=== PATIENT | male | born 1970 | race Caucasian/White ===

== ENCOUNTER 2020-10-16 21:51 | Inpatient (IN) | payer OTHER ==
[~2020-10-16] VITALS: Ht 182.9 cm; Wt 84.8 kg
[2020-10-16 21:30] VITALS: BP 97/63
--- NOTE | 2020-10-16 21:30 | NUR ---
The patient, RAJINDER BOWSER, 50 y/o, M admitted by ABEL PAULSON MD, from [address] by ems. Pt. was given written information regarding hospital policies, unit procedures and contact persons. Valuables were checked and all questions answered. Pt alert to self currently. Very lethargic, but arouses to name. Updated given to mother, Raegan. Orders obtained from Dr. Paulson. Continue to monitor.
[~2020-10-16 21:51] MED LIST: AMIODARONE 150 MG/3 ML VIAL ONE; DOPamine 400MG/250ML PREMIX 400 MG/250 ML BAG IV ONE; EPINEPHrine SYRINGE 1 MG/10 ML SYRINGE ONE; SODIUM BICARB ADULT 8.4% 50 MEQ/50 ML DISP.SYRIN. ONE
[2020-10-16] MEDS ORDERED: ALBUTEROL SULFATE 2.5 MG/3 ML NEBU. NEB PRN (22:15)
[2020-10-16] MEDS ORDERED: LIDOCAINE 2% TOPICAL JELLY 30GM TUBE. TP PRN (22:15)
[2020-10-16] MEDS ORDERED: ONDANSETRON PF 4 MG/2 ML VIAL. IVP PRN (22:15)
[2020-10-16] MEDS ORDERED: CAPSAICIN 0.025% TOPICAL CREAM 60GM TUBE. TP PRN (22:15)
[2020-10-16 23:00] VITALS: BP 118/68
[2020-10-16] MEDS ORDERED: POTASSIUM CL 40MEQ IN 0.9%NACL 1,000 ML IV SCH (23:00)
[2020-10-17] MEDS ORDERED: TIOT18CA IH (00:30)
[2020-10-17] MEDS ORDERED: CYAN100031 PO (00:30)
[2020-10-17] MEDS ORDERED: LIDO5CRE9 TP (00:30)
[2020-10-17] MEDS ORDERED: THIA100T57 PO (00:30)
[2020-10-17] MEDS ORDERED: DULO60CA6 PO (00:30)
[2020-10-17] MEDS ORDERED: LOSA25TA PO (00:30)
[2020-10-17] MEDS ORDERED: GABA600T7 PO (00:30)
[2020-10-17] MEDS ORDERED: METF500T16 PO (00:30)
[2020-10-17] MEDS ORDERED: ASPI-630 PO (00:30)
[2020-10-17] MEDS ORDERED: POTA-163 PO (00:30)
[2020-10-17] MEDS ORDERED: CAPS60CR2 TP (00:30)
[2020-10-17] MEDS ORDERED: CRESTOR5 MG PO (00:30)
[2020-10-17] MEDS ORDERED: BUDE10.2 IH (00:30)
[2020-10-17] MEDS ORDERED: TAMS0.4C97 PO (00:30)
[2020-10-17] MEDS ORDERED: SILD50TA PO (00:30)
[2020-10-17] MEDS ORDERED: FOLI0.8T5 PO (00:30)
[2020-10-17] MEDS ORDERED: ALBU2.5V8 IH (00:30)
[2020-10-17 03:00] VITALS: BP 96/61
[2020-10-17 07:00] VITALS: BP 97/60
[2020-10-17] MEDS: BUDESONIDE 0.5 MG/2 ML NEBU. NEB SCH ×2 (07:30→20:00)
[2020-10-17] MEDS: IPRATRPIUM/ALBUTEROL 0.5/2.5MG 3 ML NEBU. NEB SCH ×4 (07:30→20:00)
[2020-10-17] MEDS: PANTOPRAZOLE IV PUSH 40 MG VIAL. IVP SCH (07:51)
[2020-10-17 08:25] LABS: BASO % 0 % (0-3); EOS % 0 % (0-3); HEMOGLOBIN 7.7 g/dL (13.0-17.5); LYMPH # 1.5 x10^3/uL (1.0-4.8); LYMPH % 20 % (24-48); MEAN CORPUSCULAR HEMOGLOBIN 35 pg (25-35); MEAN CORPUSCULAR HGB CONC 34 g/dL (31-37); MEAN CORPUSCULAR VOLUME 106 fL (79-100); MONO # 0.3 x10^3/uL (0.0-1.1); MONO % 4 % (0-9); NEUT # 5.6 x10^3/uL (1.8-7.7); NEUT % 75 % (31-73); PLATELET COUNT 133 x10^3/uL (140-400); RED BLOOD COUNT 2.18 x10^6/uL (4.30-5.70); WHITE BLOOD COUNT 7.4 x10^3/uL (4.0-11.0)
[2020-10-17] MEDS ORDERED: DULoxetine HCL 30 MG CAPSULE.DR PO SCH (09:00)
[2020-10-17 09:08] LABS: ALBUMIN 2.3 g/dL (3.4-5.0); ALBUMIN/GLOBULIN RATIO 0.7 (1.0-1.7); CALCIUM 8.6 mg/dL (8.5-10.1); GFR 78.8; POTASSIUM 5.5 mmol/L (3.5-5.1); TOTAL BILIRUBIN 0.7 mg/dL (0.2-1.0); TOTAL PROTEIN 5.8 g/dL (6.4-8.2)
[2020-10-17] MEDS ORDERED: INSULIN LISPRO 300 UNITS/3 ML VIAL. SQ PRN (09:45)
[2020-10-17] MEDS ORDERED: DEXTROSE 50% 25 GM / 50ML DISP.SYRIN. IV PRN (09:45)
--- NOTE | 2020-10-17 09:53 | PDOC2 ---
CONSULT Date of Consult Date of Consult DATE: 10/17/20 TIME: 09:51 Reason for Consult Reason for Consult: N/V/transaminitis Current Medications Current Medications Current Medications Albuterol Sulfate (Ventolin Neb Soln) 2.5 mg PRN Q4HRS PRN NEB SHORTNESS OF BREATH; Start 10/16/20 at 22:15 Budesonide (Pulmicort) 0.5 mg RTBID NEB Last administered on 10/17/20at 07:30; Start 10/17/20 at 08:00 Capsaicin (Zostrix) 1 lea PRN QID PRN TP MODERATE PAIN 4-6; Start 10/16/20 at 22:15 Duloxetine HCl (Cymbalta) 90 mg DAILY PO ; Start 10/17/20 at 09:00; Stop 10/17/20 at 09:45; Status DC Albuterol/ Ipratropium (Duoneb) 3 ml RTQID NEB Last administered on 10/17/20at 07:30; Start 10/17/20 at 08:00 Lidocaine HCl (Xylocaine 2% Topical 30gm Tube) 1 lea PRN QID PRN TP MUSCLE P AIN; Start 10/16/20 at 22:15 Ondansetron HCl (Zofran) 4 mg PRN Q6HRS PRN IVP NAUSEA/VOMITING 1ST CHOICE; Start 10/16/20 at 22:15 Pantoprazole Sodium (PROTONIX VIAL for IV PUSH) 40 mg DAILYAC IVP Last administered on 10/17/20at 07:51; Start 10/17/20 at 07:30 Potassium Chloride/Sodium Chloride 1,000 ml @ 125 mls/hr Q8H IV Last administered on 10/17/20at 00:43; Start 10/16/20 at 23:00; Stop 10/17/20 at 09:43; Status DC Dextrose 1,000 ml @ 100 mls/hr Q10H IV ; Start 10/17/20 at 09:45 Insulin Human Lispro (HumaLOG) 0-5 UNITS Q6H PRN SQ hyperglycemia; Start 10/17/20 at 09:45; Status UNV Dextrose (Dextrose 50%-Water Syringe) 12.5 gm PRN Q15MIN PRN IV SEE COMMENTS; Start 10/17/20 at 09:45; Status UNV Active Scripts Active Reported Vitamin B-1 (Thiamine Hcl) 100 Mg Tablet 200 Mg PO DAILY Folic Acid 0.8 Mg Tablet 20 Mg PO DAILY B-12 (Cyanocobalamin (Vitamin B-12)) 1,000 Mcg Tablet.er 1 Tab PO DAILY 30 Days Capsaicin 60 Gm Cream..g. 60 Gm TP PRN QID PRN Metformin Hcl 500 Mg Tablet 500 Mg PO BIDWMEALS Anecream (Lidocaine) 5 Gm Cream..g. 1 Lea TP PRN QID PRN 30 Days Symbicort 160-4.5 Mcg Inhaler (Budesonide/Formoterol Fumarate) 10.2 Gm Hfa.aer.ad 2 Puff IH BID Potassium Chloride 20 Meq Tablet.er 20 Meq PO DAILY Cymbalta (Duloxetine Hcl) 60 Mg Capsule.dr 90 Mg PO DAILY Gabapentin 600 Mg Tablet 600 Mg PO TID Aspirin 81 Mg Tab.chew 1 Tab PO DAILY Cozaar (Losartan Potassium) 25 Mg Tablet 25 Mg PO DAILY Viagra (Sildenafil Citrate) 50 Mg Tablet 50 Mg PO ONCE PRN Crestor (Rosuvastatin Calcium) 5 Mg Tablet 2.5 Mg PO HS Flomax (Tamsulosin Hcl) 0.4 Mg Cap.er.24h 1 Cap PO DAILY Proair Hfa (Albuterol Sulfate) 8.5 Gm Hfa.aer.ad 2 Puff IH PRN Q4-6HRS PRN 21 Days Spiriva (Tiotropium Gilbert) 18 Mcg Cap.w.dev 1 Cap IH DAILY Allergies Allergies: Coded Allergies: lisinopril (Verified Allergy, Severe, 10/16/20) amitriptyline (Verified Allergy, Intermediate, 10/16/20) divalproex sodium (Verified Allergy, Intermediate, 10/16/20) topiramate (Verified Allergy, Intermediate, 10/16/20) Vitals VITALS Vital Signs Date Time Temp Pulse Resp B/P (MAP) Pulse Ox O2 Delivery O2 Flow Rate FiO2 10/17/20 08:00 Room Air 2.0 10/17/20 07:30 94 10/17/20 07:00 98.0 106 18 97/60 (72) 98.0 Labs Labs Laboratory Tests Test 10/17/20 08:00 White Blood Count 7.4 x10^3/uL (4.0-11.0) Red Blood Count 2.18 x10^6/uL (4.30-5.70) Hemoglobin 7.7 g/dL (13.0-17.5) Hematocrit 23.0 % (39.0-53.0) Mean Corpuscular Volume 106 fL (79-100) Mean Corpuscular Hemoglobin 35 pg (25-35) Mean Corpuscular Hemoglobin Concent 34 g/dL (31-37) Red Cell Distribution Width 21.0 % (11.5-14.5) Platelet Count 133 x10^3/uL (140-400) Neutrophils (%) (Auto) 75 % (31-73) Lymphocytes (%) (Auto) 20 % (24-48) Monocytes (%) (Auto) 4 % (0-9) Eosinophils (%) (Auto) 0 % (0-3) Basophils (%) (Auto) 0 % (0-3) Neutrophils # (Auto) 5.6 x10^3/uL (1.8-7.7) Lymphocytes # (Auto) 1.5 x10^3/uL (1.0-4.8) Monocytes # (Auto) 0.3 x10^3/uL (0.0-1.1) Eosinophils # (Auto) 0.0 x10^3/uL (0.0-0.7) Basophils # (Auto) 0.0 x10^3/uL (0.0-0.2) Sodium Level 147 mmol/L (136-145) Potassium Level 5.5 mmol/L (3.5-5.1) Chloride Level 110 mmol/L (98-107) Carbon Dioxide Level 27 mmol/L (21-32) Anion Gap 10 (6-14) Blood Urea Nitrogen 40 mg/dL (8-26) Creatinine 1.0 mg/dL (0.7-1.3) Estimated GFR (Cockcroft-Gault) 78.8 BUN/Creatinine Ratio 40 (6-20) Glucose Level 136 mg/dL (70-99) Calcium Level 8.6 mg/dL (8.5-10.1) Total Bilirubin 0.7 mg/dL (0.2-1.0) Aspartate Amino Transf (AST/SGOT) 80 U/L (15-37) Alanine Aminotransferase (ALT/SGPT) 85 U/L (16-63) Alkaline Phosphatase 170 U/L (46-116) Total Protein 5.8 g/dL (6.4-8.2) Albumin 2.3 g/dL (3.4-5.0) Albumin/Globulin Ratio 0.7 (1.0-1.7) Laboratory Tests Test 10/17/20 08:00 White Blood Count 7.4 x10^3/uL (4.0-11.0) Red Blood Count 2.18 x10^6/uL (4.30-5.70) Hemoglobin 7.7 g/dL (13.0-17.5) Hematocrit 23.0 % (39.0-53.0) Mean Corpuscular Volume 106 fL (79-100) Mean Corpuscular Hemoglobin 35 pg (25-35) Mean Corpuscular Hemoglobin Concent 34 g/dL (31-37) Red Cell Distribution Width 21.0 % (11.5-14.5) Platelet Count 133 x10^3/uL (140-400) Neutrophils (%) (Auto) 75 % (31-73) Lymphocytes (%) (Auto) 20 % (24-48) Monocytes (%) (Auto) 4 % (0-9) Eosinophils (%) (Auto) 0 % (0-3) Basophils (%) (Auto) 0 % (0-3) Neutrophils # (Auto) 5.6 x10^3/uL (1.8-7.7) Lymphocytes # (Auto) 1.5 x10^3/uL (1.0-4.8) Monocytes # (Auto) 0.3 x10^3/uL (0.0-1.1) Eosinophils # (Auto) 0.0 x10^3/uL (0.0-0.7) Basophils # (Auto) 0.0 x10^3/uL (0.0-0.2) Sodium Level 147 mmol/L (136-145) Potassium Level 5.5 mmol/L (3.5-5.1) Chloride Level 110 mmol/L (98-107) Carbon Dioxide Level 27 mmol/L (21-32) Anion Gap 10 (6-14) Blood Urea Nitrogen 40 mg/dL (8-26) Creatinine 1.0 mg/dL (0.7-1.3) Estimated GFR (Cockcroft-Gault) 78.8 BUN/Creatinine Ratio 40 (6-20) Glucose Level 136 mg/dL (70-99) Calcium Level 8.6 mg/dL (8.5-10.1) Total Bilirubin 0.7 mg/dL (0.2-1.0) Aspartate Amino Transf (AST/SGOT) 80 U/L (15-37) Alanine Aminotransferase (ALT/SGPT) 85 U/L (16-63) Alkaline Phosphatase 170 U/L (46-116) Total Protein 5.8 g/dL (6.4-8.2) Albumin 2.3 g/dL (3.4-5.0) Albumin/Globulin Ratio 0.7 (1.0-1.7) Assessment/Plan Assessment/Plan N/V- with Crohns/coffee ground emesis, Differential includes: PUD, varices with liver disease/portal hypertensions, GB disease, and/or alcoholic hepatitis Plan medical therapy with hydration/fluids/alcohol withdrawal precautions serial labs US liver to further assess Full note dictated. DELFINA WADE MD Oct 17, 2020 09:53
[2020-10-17] MEDS: IV DEXTROSE 5% 1,000 ML IV SCH ×2 (10:02→19:55)
--- NOTE | 2020-10-17 10:06 | HP ---
ADMIT DATE: 10/16/2020 HISTORY OF PRESENT ILLNESS: The patient is a 50-year-old male patient who was admitted through the Emergency Room of [facility] with basically altered mental status. He was diagnosed with acute kidney injury, lactic acidosis together with functional paraplegia due to severe diabetic peripheral neuropathy as he is on duloxetine, gabapentin as well as capsaicin. He initially did well. In fact, his numbers have improved. His kidney function came down from a creatinine of 1.4, down to 0.9 and his BUN also has improved from 49 to 36; however, his H and H has dropped to 6.9 yesterday and he did receive 1 unit of packed RBCs and yesterday around noon, he started complaining of abdominal pain and also vomited multiple times what seemed to be coffee-ground material, so we did start him on IV Protonix, IV fluid and kept him n.p.o. We did repeat his labs yesterday evening and his H and H continued to be stable around 9.1 and 27.3 and his chemistry remained stable. His liver enzymes continued to be slightly elevated; however, his ammonia is normal. His lactate dehydrogenase was only 149. His lipase was 323. I did a CT scan of the abdomen and pelvis without contrast and it did show that the patient has dilated fluid filled ascending colon with adjacent fat stranding, which is nonspecific, may relate to colitis. He also has gallbladder distended with small amount of adjacent stranding, correlate with symptomatology to determine the need for further evaluation with ultrasound. The patient therefore was continued to be in n.p.o. status. Continued on IV fluid and continued on Protonix drip and transferred to [facility] to consult the Cardiology team. PAST MEDICAL HISTORY: Significant for Crohn's disease, type 2 diabetes mellitus, hypertension, hyperlipidemia, chronic obstructive pulmonary disease, benign prostatic hypertrophy, and chronic alcoholism. PAST SURGICAL HISTORY: Significant for multiple EGDs and colonoscopies. ALLERGIES: HE IS ALLERGIC TO AMITRIPTYLINE, DIVALPROEX SODIUM, LISINOPRIL, AND TOPIRAMATE. HOME MEDICATIONS: Consist of tiotropium bromide 1 capsule daily, albuterol sulfate 2 puffs every 4-6 hours, tamsulosin 0.4 mg at bedtime, Crestor 2.5 mg weekly, sildenafil for Viagra 50 mg as needed. He is also on losartan potassium 25 mg once a day, aspirin 81 mg once a day, gabapentin 400 mg 3 times a day, duloxetine 90 mg daily. He is on potassium chloride 20 mEq daily. He is on Symbicort 160/4.5 two puffs twice a day, Lidoderm gel applied topically 4 times a day for nerve pain. He is also on metformin 500 mg twice a day, capsaicin 60 grams cream applied topically 4 times a day, vitamin B12 1000 mcg once a day, folic acid 1 mg once a day and thiamine 100 mg once a day. FAMILY HISTORY: He has 3 sisters, 1 brother, older and healthy. His father at the age of 74 as a complication of surgery for his carotid arteries according to him. His mother is still alive at the age of 89 and apparently healthy. Currently lives in [place], [place]. SOCIAL HISTORY: He has twice, twice. He used to live with his girlfriend who recently. He has no children. He quit smoking years ago. He drinks wine 3 times per week according to him. He does not drink any whiskey or vodka. He was in [employer] in 1990. He was discharged because he was diagnosed with Crohn's disease. REVIEW OF SYSTEMS: The patient continued to complain of diffuse abdominal pain, but denied any further episodes of nausea and vomiting when I saw him this morning. PHYSICAL EXAMINATION: GENERAL: When I examined him this morning, he looked pale, not jaundiced or cyanosed. No lymphadenopathy, no thyromegaly. No jugular venous distention. No lower limb edema. VITAL SIGNS: His heart rate was 106, blood pressure was 97/60, temperature was 98, respiratory rate was 18 and oxygen saturation was 94% on 2 liters of oxygen. HEAD, EYES, EARS, NOSE AND THROAT: Showed normocephalic, atraumatic. NECK: Supple. HEART: Normal first and second heart sounds. No gallop or murmur. CHEST: Clear to auscultation. No crepitation or rhonchi. ABDOMEN: Distended with diffuse tenderness. No guarding or rigidity. No organomegaly. All hernial orifice intact. Bowel sounds normal. NEUROLOGIC: He is awake, alert, but confused. All his cranial nerves are intact. EXTREMITIES: He moves upper extremities to much good extent than lower extremities, mostly bedbound, wheelchair bound. LABORATORY DATA: His lab work this morning showed his white cell count was 7400, hemoglobin 7.7, hematocrit 23, MCV 106 and platelet count of 133,000 with normal manual differential. His chemistry showed a serum sodium 147, potassium 5.5, chloride 110, bicarbonate 27, anion gap of 10, BUN 40, creatinine 1, estimated GFR was 79 mL per minute. His glucose 136, calcium was 8.6. Total bilirubin 0.7. AST, ALT, alkaline phosphatase are all elevated. His total protein was 5.8, albumin was 2.3. ASSESSMENT AND PLAN: 1. In summary, this is a 50-year-old male patient who was transferred from [facility], where he was admitted initially with altered mental status that has somewhat improved. 2. Acute kidney injury with dehydration, hypokalemia and hyponatremia, improved. His creatinine came down from 1.4 to 0.9. 3. He continued to have elevated liver enzymes, likely due to chronic alcoholic liver disease. 4. The patient has multiple other medical problems including: A. Crohn's disease. B. Type 2 diabetes mellitus. C. Hypertension. D. Hyperlipidemia. E. Chronic obstructive pulmonary disease. F. Benign prostatic hypertrophy. 5. The patient dropped his H and H and has multiple episodes of nausea, vomiting and also complained of abdominal pain. The emesis was coffee-ground. The patient did receive 1 unit of packed RBCs yesterday and at least as of yesterday afternoon or evening, his H and H was 9.1 and 27. Unfortunately, his H and H has dropped again this morning. His CT scan of the abdomen and pelvis showed that the patient has dilated fluid-filled ascending colon with adjacent fat stranding, which is nonspecific and may relate to colitis. He also has gallbladder distended with small amount of adjacent stranding, correlate with symptomatology to determine the need for further evaluation with ultrasound. My plan is to keep him n.p.o., continue with IV fluid, although I have to adjust the fluid, continue with Protonix IV. I will hold all his oral medication. I have consulted the laborer airport [employer] given that he has multiple episodes of coffee-ground emesis and dropped his H and H down to 6.9 and this morning again to 7.7. He has also dilated gallbladder as well as dilated ascending colon and has a history of Crohn's disease. ABEL PAULSON MD DR: ZULMA/kwaku JOB#: [id number] / [id number]
--- NOTE | 2020-10-17 10:23 | CONS ---
DATE OF CONSULTATION: 10/17/2020 REASON FOR CONSULTATION: Right upper quadrant abdominal pain, anemia, nausea and vomiting. HISTORY OF PRESENT ILLNESS: A 50-year-old male whose past medical history is significant for Crohn's, diabetes, hypertension, hyperlipidemia, COPD, BPH, chronic alcoholism, is admitted to [facility] from [facility] with worsening mental status changes as well as the anemia. The patient otherwise gives minimal additional history due to being confused with his ammonia level has been less than 10. PAST MEDICAL HISTORY: COPD, asthma, hyperlipidemia, diabetes, alcoholism. ALLERGIES: AMITRIPTYLINE, LISINOPRIL AND TOPIRAMATE. MEDICATIONS: On admission included Crestor, Viagra, losartan, gabapentin, potassium chloride, Symbicort, metformin, vitamin D, folic acid, thiamine. FAMILY AND SOCIAL HISTORY: He has 4 siblings, who are alive and healthy. Father is from heart surgery. Mother is 89, is alive and well. SOCIAL HISTORY: He is a smoker and drinker. REVIEW OF SYSTEMS: Per records. PHYSICAL EXAMINATION: GENERAL: Reveals a disabled male, who is alert, but disoriented to time and place. VITAL SIGNS: Temp 97.3, pulse 79, respiratory rate is 16, blood pressure is 92/65. LUNGS: Reveal decreased breath sounds. CARDIOVASCULAR: S1, S2 without S3, S4 or appreciable murmur. ABDOMEN: Reveals a soft abdomen, normoactive bowel sounds without appreciable hepatosplenomegaly with right upper quadrant tenderness to deep palpation. EXTREMITIES: Reveals no cyanosis, clubbing or edema. LABORATORY STUDIES: Reveal hemoglobin today is 7.7; hematocrit 23; white count 7.4; platelet count is 133,000. Sodium 147, potassium 5.4, chloride 110, BUN is 40, creatinine 1.0, glucose 136. Total bili 0.7, AST of 80, ALT of 85, alk phos of 170. Total protein 5.8, albumin 2.3. An ultrasound of the liver is presently pending to further assess his abnormal CT scan, which revealed dilated loops of colon as well as possible gallbladder enlargement. IMPRESSION: The abdominal pain, nausea, vomiting, anemia most likely are multifactorial in etiology. Stress peptic ulcer disease, alcoholic hepatitis, varices, acute cholecystitis in differential. I will, therefore, recommend medical therapy, serial blood counts, PPI therapy, ultrasound to assess for acute cholecystitis and supportive therapy for possible alcohol withdrawal and alcoholic hepatitis therapy. DELFINA WADE MD DR: TAM/kwaku JOB#: [id number] / [id number]
[2020-10-17 10:45] LABS: MICROCYTOSIS PRESENT; PLT ESTIMATE ADEQUATE (ADEQUATE)
[2020-10-17 11:00] VITALS: BP 98/61
[2020-10-17] MEDS ORDERED: EPIDURAL SYRINGE. EPID ONE (12:00)
--- NOTE | 2020-10-17 13:53 | RAD ---
EXAM: Abdomen sonogram. HISTORY: Right upper quadrant pain. TECHNIQUE: Sonographic imaging of the abdomen was performed. COMPARISON: CT obtained one day prior. FINDINGS: The liver is enlarged. There is hepatic steatosis. No focal hepatic lesion is seen. There i s gauze or sludge. The common bile duct is mildly dilated for patient age, measuring 6 mm. The right kidney, inferior vena cava, aorta and pancreas are obscured due to bowel gas. IMPRESSION: 1. Hepatomegaly and hepatic steatosis. 2. Gallbladder sludge. 3. Mildly dilated common bile duct for patient age. MRCP may be useful if this concern for an occult obstructing etiology. 4. Obscured midline structures due to bowel gas. Electronically signed by: Zoey Kessler MD (10/17/2020 1:51 PM) [facility]
[2020-10-17 15:00] VITALS: BP 105/63
[2020-10-17 16:33] LABS: HEMATOCRIT 22.1 % (39.0-53.0); HEMOGLOBIN 7.3 g/dL (13.0-17.5)
[2020-10-17 16:39] LABS: CALCIUM 8.5 mg/dL (8.5-10.1); CREATININE 1.1 mg/dL (0.7-1.3); GFR 70.6; POTASSIUM 4.5 mmol/L (3.5-5.1)
[2020-10-17 19:00] VITALS: BP 107/69
[2020-10-17 23:00] VITALS: BP 105/62
[2020-10-18] VITALS (21 sets, daily range): BP systolic 81–197; BP diastolic 48–75
[2020-10-18] MEDS: ACETAMINOPHEN 650 MG SUPP.RECT. PR PRN ×2 (02:00→10:00)
[2020-10-18] MEDS: PIPERACILLIN/TAZOBACTAM 3.375 GM in IV NORMAL SALINE 50ML 50 ML IV SCH ×4 (02:00→21:03)
[2020-10-18 02:51] LABS: BASO % 0 % (0-3); EOS # 0.1 x10^3/uL (0.0-0.7); EOS % 2 % (0-3); HEMATOCRIT 21.2 % (39.0-53.0); HEMOGLOBIN 7.1 g/dL (13.0-17.5); LYMPH # 0.7 x10^3/uL (1.0-4.8); LYMPH % 13 % (24-48); MEAN CORPUSCULAR HEMOGLOBIN 36 pg (25-35); MEAN CORPUSCULAR HGB CONC 33 g/dL (31-37); MEAN CORPUSCULAR VOLUME 107 fL (79-100); MONO # 0.3 x10^3/uL (0.0-1.1); MONO % 6 % (0-9); NEUT # 4.1 x10^3/uL (1.8-7.7); NEUT % 79 % (31-73); PLATELET COUNT 149 x10^3/uL (140-400); RED BLOOD COUNT 1.99 x10^6/uL (4.30-5.70); RED CELL DISTRIBUTION WIDTH 20.6 % (11.5-14.5); WHITE BLOOD COUNT 5.2 x10^3/uL (4.0-11.0)
[2020-10-18 03:18] LABS: ALBUMIN 2.2 g/dL (3.4-5.0); ALBUMIN/GLOBULIN RATIO 0.6 (1.0-1.7); CALCIUM 8.4 mg/dL (8.5-10.1); CREATININE 1.1 mg/dL (0.7-1.3); GFR 70.6; POTASSIUM 4.1 mmol/L (3.5-5.1); TOTAL BILIRUBIN 0.6 mg/dL (0.2-1.0); TOTAL PROTEIN 5.7 g/dL (6.4-8.2)
[2020-10-18 04:32] LABS: BILIRUBIN,URINE MODERATE (NEG); CLARITY,URINE CLEAR; COLOR,URINE ORANGE; NITRITE,URINE NEGATIVE (NEG); PROTEIN,URINE NEGATIVE (NEG-TRACE)
[2020-10-18 04:58] LABS: BACTERIA,URINE FEW /HPF (0-FEW)
[2020-10-18] MEDS: IV DEXTROSE 5% 1,000 ML IV SCH ×2 (05:08→18:57)
[2020-10-18] MEDS: PANTOPRAZOLE IV PUSH 40 MG VIAL. IVP SCH (05:10)
[2020-10-18] MEDS: BUDESONIDE 0.5 MG/2 ML NEBU. NEB SCH ×2 (06:05→20:00)
[2020-10-18] MEDS: IPRATRPIUM/ALBUTEROL 0.5/2.5MG 3 ML NEBU. NEB SCH ×4 (06:05→20:00)
--- NOTE | 2020-10-18 09:11 | RAD ---
XR CHEST 1V INDICATION: Reason: fever / Spl. Instructions: / History: . COMPARISON STUDY: None. FINDINGS: Lungs: Low lung volume. Right basilar consolidation. Left basilar heterogeneous opacities. Pleura: No pleural effusion or pneumothorax. Heart and Mediastinum: The cardiomediastinal silhouette is normal. The great vessels of the thorax ar e normal. IMPRESSION: Right basilar consolidation concerning for an infectious/inflammatory process. Mild left basilar opac ities could represent subsegmental atelectasis or additional infection. Electronically signed by: Nik Emery MD (10/18/2020 9:08 AM) [id number]
--- NOTE | 2020-10-18 12:10 | PN ---
DATE: 10/18/2020 SUBJECTIVE: The patient is resting, slightly propped up in bed, in no apparent distress. He is sleepy, but arousable. He continued to be very confused. Nursing staff stated he did spike his temperature yesterday up to 101 and we did actually culture his blood and urine. Did chest x-ray, which showed that the patient has right basilar consolidation concerning for an infectious inflammatory process, mild left basilar opacities, could represent subsegmental atelectasis or additional infection for which we did start him on IV Zosyn at 3.375 grams IV every 6 hours. He did have abdominal ultrasound, which showed that he has hepatomegaly and hepatic steatosis, gallbladder sludge, and mildly dilated common bile duct for the patient's age. MRCP may be useful if there is concern for an occult obstructing etiology. He has obscured midline structure due to a bowel gas. PHYSICAL EXAMINATION: GENERAL: When I saw him this morning, he was pale, but no jaundice or cyanosis. No lymphadenopathy, no thyromegaly. No jugular venous distention. No lower limb edema. VITAL SIGNS: His heart rate was 109, blood pressure was 98/57. His temperature was 101, respiratory rate 20, and oxygen saturation was 92% on 2 liters of oxygen. HEAD, EYES, EARS, NOSE, AND THROAT: Showed normocephalic, atraumatic. NECK: Supple. HEART: Showed normal first and second heart sounds. CHEST: Shows central trachea, equal bilateral chest expansion, air entry, vesicular breath sounds. No crepitation or rhonchi anteriorly. ABDOMEN: Distended with tenderness mostly in the right upper quadrant. There is no guarding or rigidity. No organomegaly. All hernial orifice intact. Bowel sounds normal. NEUROLOGIC: He is sleepy, but arousable. He is extremely confused, but all his cranial nerves are intact. He moves his upper extremities to a much greater extent than his lower extremities. He is mostly bedbound, chair bound. He apparently has severe diabetic peripheral neuropathy. His intake over the last 24 hours and output were incompletely recorded. LABORATORY DATA: As of this morning showed a white cell count 5200; hemoglobin 7.1; hematocrit 21; MCV 107; and platelet count of 149,000. His chemistry showed a serum sodium 146, potassium 4.1, chloride 108, bicarbonate 29, anion gap of 9, BUN 38, creatinine 1.1. Estimated GFR was 70 mL per minute. His glucose 151, calcium was 8.4. Total bilirubin is normal. AST, ALT, alkaline phosphatase slightly elevated. His ammonia was 44. Total protein was 5.7, albumin was 2.2. Urinalysis was unremarkable. His chest x-ray showed he has right basilar consolidation concerning for an infectious inflammatory process. He has mild left basilar opacities, could represent subsegmental atelectasis versus additional infection. An abdominal ultrasound showed that the patient has hepatomegaly and hepatic steatosis. Gallbladder sludge, mildly dilated common bile duct for patient's age. MRCP may be useful if there is concern for an occult obstructing etiology. ASSESSMENT: 1. Altered mental status. The patient continued to be somewhat encephalopathic. 2. Acute kidney injury with dehydration, ____ and ____ has improved. His creatinine came down from 1.4 to 1. 3. Hypernatremia and hyperkalemia have improved. 4. The patient continues to have elevated liver enzymes, likely due to chronic alcoholic liver disease versus obstructive jaundice. 5. The patient has multiple other medical problems including: A. Crohn's disease. B. Type 2 diabetes mellitus. C. Hypertension. D. Hyperlipidemia. E. Chronic obstructive pulmonary disease. F. Benign prostatic hypertrophy. 6. The patient dropped his H and H and has multiple episodes of nausea, vomiting and also complained of abdominal pain and emesis was coffee-ground. The patient did receive 1 unit of packed red blood cells yesterday. 7. The patient spiked his temperature yesterday up to 101.1 and we did actually send blood and urine for culture and sensitivity, and I did start him on Zosyn 3.375 g IV every 6 hours. Chest x-ray showed possible right lower lobe infiltrate and to a lesser extent left lower lobe infiltrate. Other potential site of infection is perhaps ascending cholangitis as common bile duct is dilated for his age. PLAN: My plan is to continue with n.p.o. status. Continue with IV fluid, continue with IV Protonix. I will continue to monitor his H and H and transfuse him as needed. Continue with IV Zosyn and I will consult the Infectious Disease to assist with the management and I also will arrange for him to have an MRCP to see if there is any obstructing lesion causing the common bile duct dilatation and perhaps ascending cholangitis. ABEL PAULSON MD DR: ZULMA/kwaku JOB#: [id number] / [id number]
--- NOTE | 2020-10-18 14:03 | PDOC ---
G I PROGRESS NOTE Reason for Follow-up Anemia/alcoholic hepatitis Subjective Confused Physical Exam Lungs clear CV S1 S2 ABD +BS, soft, nontender Review of Relevant I have reviewed the following items giovanna (where applicable) has been applied. Labs Laboratory Tests Test 10/17/20 08:00 10/17/20 11:52 10/17/20 15:50 10/17/20 18:29 White Blood Count 7.4 x10^3/uL (4.0-11.0) Red Blood Count 2.18 x10^6/uL (4.30-5.70) Hemoglobin 7.7 g/dL (13.0-17.5) 7.3 g/dL (13.0-17.5) Hematocrit 23.0 % (39.0-53.0) 22.1 % (39.0-53.0) Mean Corpuscular Volume 106 fL (79-100) Mean Corpuscular Hemoglobin 35 pg (25-35) Mean Corpuscular Hemoglobin Concent 34 g/dL (31-37) Red Cell Distribution Width 21.0 % (11.5-14.5) Platelet Count 133 x10^3/uL (140-400) Neutrophils (%) (Auto) 75 % (31-73) Lymphocytes (%) (Auto) 20 % (24-48) Monocytes (%) (Auto) 4 % (0-9) Eosinophils (%) (Auto) 0 % (0-3) Basophils (%) (Auto) 0 % (0-3) Neutrophils # (Auto) 5.6 x10^3/uL (1.8-7.7) Lymphocytes # (Auto) 1.5 x10^3/uL (1.0-4.8) Monocytes # (Auto) 0.3 x10^3/uL (0.0-1.1) Eosinophils # (Auto) 0.0 x10^3/uL (0.0-0.7) Basophils # (Auto) 0.0 x10^3/uL (0.0-0.2) Platelet Estimate Adequate (ADEQUATE) Microcytosis Present Sodium Level 147 mmol/L (136-145) 146 mmol/L (136-145) Potassium Level 5.5 mmol/L (3.5-5.1) 4.5 mmol/L (3.5-5.1) Chloride Level 110 mmol/L (98-107) 110 mmol/L (98-107) Carbon Dioxide Level 27 mmol/L (21-32) 28 mmol/L (21-32) Anion Gap 10 (6-14) 8 (6-14) Blood Urea Nitrogen 40 mg/dL (8-26) 42 mg/dL (8-26) Creatinine 1.0 mg/dL (0.7-1.3) 1.1 mg/dL (0.7-1.3) Estimated GFR (Cockcroft-Gault) 78.8 70.6 BUN/Creatinine Ratio 40 (6-20) Glucose Level 136 mg/dL (70-99) 147 mg/dL (70-99) Calcium Level 8.6 mg/dL (8.5-10.1) 8.5 mg/dL (8.5-10.1) Total Bilirubin 0.7 mg/dL (0.2-1.0) Aspartate Amino Transf (AST/SGOT) 80 U/L (15-37) Alanine Aminotransferase (ALT/SGPT) 85 U/L (16-63) Alkaline Phosphatase 170 U/L (46-116) Total Protein 5.8 g/dL (6.4-8.2) Albumin 2.3 g/dL (3.4-5.0) Albumin/Globulin Ratio 0.7 (1.0-1.7) Glucose (Fingerstick) 159 mg/dL (70-99) 163 mg/dL (70-99) Test 10/18/20 00:00 10/18/20 01:08 10/18/20 02:00 10/18/20 11:18 Glucose (Fingerstick) 146 mg/dL (70-99) 144 mg/dL (70-99) Urine Collection Type Unknown Urine Color [place] Urine Clarity Clear Urine pH 6.0 (<5.0-8.0) Urine Specific [place] 1.025 (1.000-1.030) Urine Protein Negative mg/dL (NEG-TRACE) Urine Glucose (UA) Negative mg/dL (NEG) Urine Ketones (Stick) Trace mg/dL (NEG) Urine Blood Negative (NEG) Urine Nitrite Negative (NEG) Urine Bilirubin Moderate (NEG) Urine Urobilinogen Dipstick 4.0 mg/dL (0.2 mg/dL) Urine Leukocyte Esterase Negative (NEG) Urine RBC 1-2 /HPF (0-2) Urine WBC 1-4 /HPF (0-4) Urine Squamous Epithelial Cells Few /LPF Urine Bacteria Few /HPF (0-FEW) Urine Mucus Slight /LPF White Blood Count 5.2 x10^3/uL (4.0-11.0) Red Blood Count 1.99 x10^6/uL (4.30-5.70) Hemoglobin 7.1 g/dL (13.0-17.5) Hematocrit 21.2 % (39.0-53.0) Mean Corpuscular Volume 107 fL (79-100) Mean Corpuscular Hemoglobin 36 pg (25-35) Mean Corpuscular Hemoglobin Concent 33 g/dL (31-37) Red Cell Distribution Width 20.6 % (11.5-14.5) Platelet Count 149 x10^3/uL (140-400) Neutrophils (%) (Auto) 79 % (31-73) Lymphocytes (%) (Auto) 13 % (24-48) Monocytes (%) (Auto) 6 % (0-9) Eosinophils (%) (Auto) 2 % (0-3) Basophils (%) (Auto) 0 % (0-3) Neutrophils # (Auto) 4.1 x10^3/uL (1.8-7.7) Lymphocytes # (Auto) 0.7 x10^3/uL (1.0-4.8) Monocytes # (Auto) 0.3 x10^3/uL (0.0-1.1) Eosinophils # (Auto) 0.1 x10^3/uL (0.0-0.7) Basophils # (Auto) 0.0 x10^3/uL (0.0-0.2) Sodium Level 146 mmol/L (136-145) Potassium Level 4.1 mmol/L (3.5-5.1) Chloride Level 108 mmol/L (98-107) Carbon Dioxide Level 29 mmol/L (21-32) Anion Gap 9 (6-14) Blood Urea Nitrogen 38 mg/dL (8-26) Creatinine 1.1 mg/dL (0.7-1.3) Estimated GFR (Cockcroft-Gault) 70.6 BUN/Creatinine Ratio 35 (6-20) Glucose Level 151 mg/dL (70-99) Calcium Level 8.4 mg/dL (8.5-10.1) Total Bilirubin 0.6 mg/dL (0.2-1.0) Aspartate Amino Transf (AST/SGOT) 51 U/L (15-37) Alanine Aminotransferase (ALT/SGPT) 67 U/L (16-63) Alkaline Phosphatase 163 U/L (46-116) Ammonia 44 mcmol/L (11-34) Total Protein 5.7 g/dL (6.4-8.2) Albumin 2.2 g/dL (3.4-5.0) Albumin/Globulin Ratio 0.6 (1.0-1.7) Laboratory Tests Test 10/17/20 15:50 10/17/20 18:29 10/18/20 00:00 10/18/20 01:08 Hemoglobin 7.3 g/dL (13.0-17.5) Hematocrit 22.1 % (39.0-53.0) Sodium Level 146 mmol/L (136-145) Potassium Level 4.5 mmol/L (3.5-5.1) Chloride Level 110 mmol/L (98-107) Carbon Dioxide Level 28 mmol/L (21-32) Anion Gap 8 (6-14) Blood Urea Nitrogen 42 mg/dL (8-26) Creatinine 1.1 mg/dL (0.7-1.3) Estimated GFR (Cockcroft-Gault) 70.6 Glucose Level 147 mg/dL (70-99) Calcium Level 8.5 mg/dL (8.5-10.1) Glucose (Fingerstick) 163 mg/dL (70-99) 146 mg/dL (70-99) Urine Collection Type Unknown Urine Color [place] Urine Clarity Clear Urine pH 6.0 (<5.0-8.0) Urine Specific [place] 1.025 (1.000-1.030) Urine Protein Negative mg/dL (NEG-TRACE) Urine Glucose (UA) Negative mg/dL (NEG) Urine Ketones (Stick) Trace mg/dL (NEG) Urine Blood Negative (NEG) Urine Nitrite Negative (NEG) Urine Bilirubin Moderate (NEG) Urine Urobilinogen Dipstick 4.0 mg/dL (0.2 mg/dL) Urine Leukocyte Esterase Negative (NEG) Urine RBC 1-2 /HPF (0-2) Urine WBC 1-4 /HPF (0-4) Urine Squamous Epithelial Cells Few /LPF Urine Bacteria Few /HPF (0-FEW) Urine Mucus Slight /LPF Test 10/18/20 02:00 10/18/20 11:18 White Blood Count 5.2 x10^3/uL (4.0-11.0) Red Blood Count 1.99 x10^6/uL (4.30-5.70) Hemoglobin 7.1 g/dL (13.0-17.5) Hematocrit 21.2 % (39.0-53.0) Mean Corpuscular Volume 107 fL (79-100) Mean Corpuscular Hemoglobin 36 pg (25-35) Mean Corpuscular Hemoglobin Concent 33 g/dL (31-37) Red Cell Distribution Width 20.6 % (11.5-14.5) Platelet Count 149 x10^3/uL (140-400) Neutrophils (%) (Auto) 79 % (31-73) Lymphocytes (%) (Auto) 13 % (24-48) Monocytes (%) (Auto) 6 % (0-9) Eosinophils (%) (Auto) 2 % (0-3) Basophils (%) (Auto) 0 % (0-3) Neutrophils # (Auto) 4.1 x10^3/uL (1.8-7.7) Lymphocytes # (Auto) 0.7 x10^3/uL (1.0-4.8) Monocytes # (Auto) 0.3 x10^3/uL (0.0-1.1) Eosinophils # (Auto) 0.1 x10^3/uL (0.0-0.7) Basophils # (Auto) 0.0 x10^3/uL (0.0-0.2) Sodium Level 146 mmol/L (136-145) Potassium Level 4.1 mmol/L (3.5-5.1) Chloride Level 108 mmol/L (98-107) Carbon Dioxide Level 29 mmol/L (21-32) Anion Gap 9 (6-14) Blood Urea Nitrogen 38 mg/dL (8-26) Creatinine 1.1 mg/dL (0.7-1.3) Estimated GFR (Cockcroft-Gault) 70.6 BUN/Creatinine Ratio 35 (6-20) Glucose Level 151 mg/dL (70-99) Calcium Level 8.4 mg/dL (8.5-10.1) Total Bilirubin 0.6 mg/dL (0.2-1.0) Aspartate Amino Transf (AST/SGOT) 51 U/L (15-37) Alanine Aminotransferase (ALT/SGPT) 67 U/L (16-63) Alkaline Phosphatase 163 U/L (46-116) Ammonia 44 mcmol/L (11-34) Total Protein 5.7 g/dL (6.4-8.2) Albumin 2.2 g/dL (3.4-5.0) Albumin/Globulin Ratio 0.6 (1.0-1.7) Glucose (Fingerstick) 144 mg/dL (70-99) Medications Current Medications Albuterol Sulfate (Ventolin Neb Soln) 2.5 mg PRN Q4HRS PRN NEB SHORTNESS OF BREATH; Start 10/16/20 at 22:15 Budesonide (Pulmicort) 0.5 mg RTBID NEB Last administered on 10/18/20at 06:05; Start 10/17/20 at 08:00 Capsaicin (Zostrix) 1 lea PRN QID PRN TP MODERATE PAIN 4-6; Start 10/16/20 at 22:15 Duloxetine HCl (Cymbalta) 90 mg DAILY PO ; Start 10/17/20 at 09:00; Stop 10/17/20 at 09:45; Status DC Albuterol/ Ipratropium (Duoneb) 3 ml RTQID NEB Last administered on 10/18/20at 11:27; Start 10/17/20 at 08:00 Lidocaine HCl (Xylocaine 2% Topical 30gm Tube) 1 lea PRN QID PRN TP MUSCLE PAIN; Start 10/16/20 at 22:15 Ondansetron HCl (Zofran) 4 mg PRN Q6HRS PRN IVP NAUSEA/VOMITING 1ST CHOICE; Start 10/16/20 at 22:15 Pantoprazole Sodium (PROTONIX VIAL for IV PUSH) 40 mg DAILYAC IVP Last administered on 10/18/20at 05:10; Start 10/17/20 at 07:30 Potassium Chloride/Sodium Chloride 1,000 ml @ 125 mls/hr Q8H IV Last administered on 10/17/20at 00:43; Start 10/16/20 at 23:00; Stop 10/17/20 at 09:43; Status DC Dextrose 1,000 ml @ 100 mls/hr Q10H IV Last administered on 10/18/20at 05:08; Start 10/17/20 at 09:45 Insulin Human Lispro (HumaLOG) 0-5 UNITS PRN Q6HRS PRN SQ hyperglycemia; Start 10/17/20 at 09:45 Dextrose (Dextrose 50%-Water Syringe) 12.5 gm PRN Q15MIN PRN IV SEE COMMENTS; Start 10/17/20 at 09:45 Piperacillin Sod/ Tazobactam Sod 3.375 gm/Sodium Chloride 50 ml @ 100 mls/hr Q6HRS IV Last administered on 10/18/20at 11:32; Start 10/18/20 at 01:00 Acetaminophen (Tylenol Supp) 650 mg PRN Q6HRS PRN IN MILD PAIN / TEMP > 100.3'F Last administered on 10/18/20at 10:00; Start 10/18/20 at 00:15 Acetaminophen (Tylenol) 650 mg PRN Q6HRS PRN PO MILD PAIN / TEMP > 100.3'F; Start 10/18/20 at 00:15 Active Scripts Active Reported Vitamin B-1 (Thiamine Hcl) 100 Mg Tablet 200 Mg PO DAILY Folic Acid 0.8 Mg Tablet 20 Mg PO DAILY B-12 (Cyanocobalamin (Vitamin B-12)) 1,000 Mcg Tablet.er 1 Tab PO DAILY 30 Days Capsaicin 60 Gm Cream..g. 60 Gm TP PRN QID PRN Metformin Hcl 500 Mg Tablet 500 Mg PO BIDWMEALS Anecream (Lidocaine) 5 Gm Cream..g. 1 Le[place] TP PRN QID PRN 30 Days Symbicort 160-4.5 Mcg Inhaler (Budesonide/Formoterol Fumarate) 10.2 Gm Hfa.aer.ad 2 Puff IH BID Potassium Chloride 20 Meq Tablet.er 20 Meq PO DAILY Cymbalta (Duloxetine Hcl) 60 Mg Capsule.dr 90 Mg PO DAILY Gabapentin 600 Mg Tablet 600 Mg PO TID Aspirin 81 Mg Tab.chew 1 Tab PO DAILY Cozaar (Losartan Potassium) 25 Mg Tablet 25 Mg PO DAILY Viagra (Sildenafil Citrate) 50 Mg Tablet 50 Mg PO ONCE PRN Crestor (Rosuvastatin Calcium) 5 Mg Tablet 2.5 Mg PO HS Flomax (Tamsulosin Hcl) 0.4 Mg Cap.er.24h 1 Cap PO DAILY Proair Hfa (Albuterol Sulfate) 8.5 Gm Hfa.aer.ad 2 Puff IH PRN Q4-6HRS PRN 21 Days Spiriva (Tiotropium [place]) 18 Mcg Cap.w.dev 1 Cap IH DAILY Vitals/I & O Vital Sign - Last 24 Hours 10/17/20 10/17/20 10/17/20 10/17/20 15:00 15:45 19:00 20:00 Temp 98.6 100.0 98.6 100.0 Pulse 109 109 Resp 18 20 B/P (MAP) 105/63 (77) 107/69 (82) Pulse Ox 95 94 96 O2 Delivery Room Air Nasal Cannula Nasal Cannula Room Air O2 Flow Rate 2.0 2.0 10/17/20 10/17/20 10/18/20 10/18/20 20:04 23:00 03:00 06:05 Temp 101.1 91.6 101.1 91.6 Pulse 110 110 Resp 20 20 B/P (MAP) 105/62 (76) 197/61 (106) Pulse Ox 96 95 92 O2 Delivery Nasal Cannula Nasal Cannula Nasal Cannula Nasal Cannula O2 Flow Rate 2.0 2.0 2.0 2.0 10/18/20 10/18/20 10/18/20 10/18/20 07:00 07:35 11:00 11:31 Temp 101.0 101.9 101.0 101.9 Pulse 109 121 Resp 20 20 B/P (MAP) 98/57 (71) 94/48 (63) Pulse Ox 92 90 O2 Delivery Nasal Cannula Room Air Nasal Cannula Nasal Cannula O2 Flow Rate 2.0 2.0 2.0 Intake and Output 10/17/20 10/17/20 10/18/20 15:00 23:00 07:00 Intake Total 0 ml 200 ml Output Total 300 ml Balance 0 ml -100 ml Problem List Alcoholic hepatitis- with anemia, likely multi-factorial in etiology, PPI therapy for PUD, may need neuro consult if confusions persists Justicifation of Admission Dx: Justifications for Admission: Justification of Admission Dx: Yes DELFINA WADE MD Oct 18, 2020 14:03
--- NOTE | 2020-10-18 15:00 | NUR ---
INFRASTRUCTURE ENGINEER called this RN into the room as vitals were being checked. Patient's blood pressure was low. This RN was assessing patient's 02 and vitals when patient turned blue and no respirations. This RN checked patient's pulse. There was no pulse. RN called code blue at 1500. Compressions started. Refer to code sheet. Patient transferred down to ICU. Report given to IVANA Paul. Patient's mom Raegan called and updated of patient's status.
[2020-10-18 15:29] LABS: HEMATOCRIT 22.3 % (39.0-53.0); HEMOGLOBIN 7.2 g/dL (13.0-17.5)
--- NOTE | 2020-10-18 15:41 | PDOC5 ---
CODE REPORT CODE REPORT Patient is a 50-year-old male who was admitted to the hospital due alcoholic hepatitis, anemia. He was found unresponsive in his room. CODE BLUE was activated. This physician responded to the CODE BLUE. CPR WAS IN PROGRESS WHEN THIS PHYSICIAN ARRIVED. Patient was intubated by this physician emergently. He was found to have VF on the monitor. He was shocked twice, ROSC was achieved, sinus rhythm. His attending physician was notified. EKG was done shown sinus rhythm with ST segment depression in lateral leads. Patient will be moved to ICU. INTUBATION PROCEDURE: Indication: Respiratory failure Consent: Unable to give consent due to emergent nature. Medications Used: see nursing note Procedure: The patient was placed in the appropriate position. Intubation was performed BY THIS PHYSICIAN, CORD VISUALIZATION BY GLIDESCOPE, ET TUBE # 7.5 was used, secured 24 at lip. Initial confirmation of placement included bilateral breath sounds, tube fogging, adequate chest rise, adequate pulse oximetry reading. A chest x-ray to verify correct placement of the tube showed appropriate tube position. Complications: none. ROBIN ARAUJO DO Oct 18, 2020 15:41
[2020-10-18] MEDS ORDERED: MIDAZOLAM 100mg/100ml NS BAG 100 ML IV PRN (16:00)
[2020-10-18 16:21] LABS: CALCIUM 7.5 mg/dL (8.5-10.1); CREATININE 2.2 mg/dL (0.7-1.3); GFR 31.7; POTASSIUM 4.8 mmol/L (3.5-5.1)
[2020-10-18 16:27] LABS: ALBUMIN 1.9 g/dL (3.4-5.0); ALBUMIN/GLOBULIN RATIO 0.6 (1.0-1.7); MAGNESIUM 2.5 mg/dL (1.8-2.4); TOTAL BILIRUBIN 0.8 mg/dL (0.2-1.0); TOTAL PROTEIN 5.2 g/dL (6.4-8.2)
[2020-10-18 16:28] LABS: PROTHROMBIN TIME PATIENT 17.7 SEC (11.7-14.0)
[2020-10-18] MEDS ORDERED: VANCOMYCIN PER PHARMACY MC PRN (16:30)
[2020-10-18] MEDS ORDERED: PIP/TAZO PER PHARMACY MC PRN (16:30)
--- NOTE | 2020-10-18 16:34 | RAD ---
Exam: Chest one view INDICATION: Endotracheal tube placement TECHNIQUE: Frontal view of the chest Comparisons: 10/18/2020 FINDINGS: Endotracheal tube with tip approximately 3 cm above the sukhwinder. Enteric tube with tip in the left upp er quadrant likely within the stomach. The cardiomediastinal silhouette and pulmonary vessels are within normal limits. Strandy opacities at the lung bases bilaterally. No pleural effusion. IMPRESSION: Lines and tubes described above. Electronically signed by: Nacho Bustamante MD (10/18/2020 4:32 PM) [facility]LE[facility]
--- NOTE | 2020-10-18 16:34 | PDOC ---
PULMONARY PROGRESS NOTES DATE: 10/18/20 TIME: 16:33 Vitals Vital Signs Date Time Temp Pulse Resp B/P (MAP) Pulse Ox O2 Delivery O2 Flow Rate FiO2 10/18/20 11:31 Nasal Cannula 2.0 10/18/20 11:00 101.9 121 20 94/48 (63) 90 101.9 Labs Laboratory Tests Test 10/17/20 08:00 10/17/20 11:52 10/17/20 15:50 10/17/20 18:29 White Blood Count 7.4 x10^3/uL (4.0-11.0) Red Blood Count 2.18 x10^6/uL (4.30-5.70) Hemoglobin 7.7 g/dL (13.0-17.5) 7.3 g/dL (13.0-17.5) Hematocrit 23.0 % (39.0-53.0) 22.1 % (39.0-53.0) Mean Corpuscular Volume 106 fL (79-100) Mean Corpuscular Hemoglobin 35 pg (25-35) Mean Corpuscular Hemoglobin Concent 34 g/dL (31-37) Red Cell Distribution Width 21.0 % (11.5-14.5) Platelet Count 133 x10^3/uL (140-400) Neutrophils (%) (Auto) 75 % (31-73) Lymphocytes (%) (Auto) 20 % (24-48) Monocytes (%) (Auto) 4 % (0-9) Eosinophils (%) (Auto) 0 % (0-3) Basophils (%) (Auto) 0 % (0-3) Neutrophils # (Auto) 5.6 x10^3/uL (1.8-7.7) Lymphocytes # (Auto) 1.5 x10^3/uL (1.0-4.8) Monocytes # (Auto) 0.3 x10^3/uL (0.0-1.1) Eosinophils # (Auto) 0.0 x10^3/uL (0.0-0.7) Basophils # (Auto) 0.0 x10^3/uL (0.0-0.2) Platelet Estimate Adequate (ADEQUATE) Microcytosis Present Sodium Level 147 mmol/L (136-145) 146 mmol/L (136-145) Potassium Level 5.5 mmol/L (3.5-5.1) 4.5 mmol/L (3.5-5.1) Chloride Level 110 mmol/L (98-107) 110 mmol/L (98-107) Carbon Dioxide Level 27 mmol/L (21-32) 28 mmol/L (21-32) Anion Gap 10 (6-14) 8 (6-14) Blood Urea Nitrogen 40 mg/dL (8-26) 42 mg/dL (8-26) Creatinine 1.0 mg/dL (0.7-1.3) 1.1 mg/dL (0.7-1.3) Estimated GFR (Cockcroft-Gault) 78.8 70.6 BUN/Creatinine Ratio 40 (6-20) Glucose Level 136 mg/dL (70-99) 147 mg/dL (70-99) Calcium Level 8.6 mg/dL (8.5-10.1) 8.5 mg/dL (8.5-10.1) Total Bilirubin 0.7 mg/dL (0.2-1.0) Aspartate Amino Transf (AST/SGOT) 80 U/L (15-37) Alanine Aminotransferase (ALT/SGPT) 85 U/L (16-63) Alkaline Phosphatase 170 U/L (46-116) Total Protein 5.8 g/dL (6.4-8.2) Albumin 2.3 g/dL (3.4-5.0) Albumin/Globulin Ratio 0.7 (1.0-1.7) Glucose (Fingerstick) 159 mg/dL (70-99) 163 mg/dL (70-99) Test 10/18/20 00:00 10/18/20 01:08 10/18/20 02:00 10/18/20 11:18 Glucose (Fingerstick) 146 mg/dL (70-99) 144 mg/dL (70-99) Urine Collection Type Unknown Urine Color [place] Urine Clarity Clear Urine pH 6.0 (<5.0-8.0) Urine Specific [place] 1.025 (1.000-1.030) Urine Protein Negative mg/dL (NEG-TRACE) Urine Glucose (UA) Negative mg/dL (NEG) Urine Ketones (Stick) Trace mg/dL (NEG) Urine Blood Negative (NEG) Urine Nitrite Negative (NEG) Urine Bilirubin Moderate (NEG) Urine Urobilinogen Dipstick 4.0 mg/dL (0.2 mg/dL) Urine Leukocyte Esterase Negative (NEG) Urine RBC 1-2 /HPF (0-2) Urine WBC 1-4 /HPF (0-4) Urine Squamous Epithelial Cells Few /LPF Urine Bacteria Few /HPF (0-FEW) Urine Mucus Slight /LPF White Blood Count 5.2 x10^3/uL (4.0-11.0) Red Blood Count 1.99 x10^6/uL (4.30-5.70) Hemoglobin 7.1 g/dL (13.0-17.5) Hematocrit 21.2 % (39.0-53.0) Mean Corpuscular Volume 107 fL (79-100) Mean Corpuscular Hemoglobin 36 pg (25-35) Mean Corpuscular Hemoglobin Concent 33 g/dL (31-37) Red Cell Distribution Width 20.6 % (11.5-14.5) Platelet Count 149 x10^3/uL (140-400) Neutrophils (%) (Auto) 79 % (31-73) Lymphocytes (%) (Auto) 13 % (24-48) Monocytes (%) (Auto) 6 % (0-9) Eosinophils (%) (Auto) 2 % (0-3) Basophils (%) (Auto) 0 % (0-3) Neutrophils # (Auto) 4.1 x10^3/uL (1.8-7.7) Lymphocytes # (Auto) 0.7 x10^3/uL (1.0-4.8) Monocytes # (Auto) 0.3 x10^3/uL (0.0-1.1) Eosinophils # (Auto) 0.1 x10^3/uL (0.0-0.7) Basophils # (Auto) 0.0 x10^3/uL (0.0-0.2) Sodium Level 146 mmol/L (136-145) Potassium Level 4.1 mmol/L (3.5-5.1) Chloride Level 108 mmol/L (98-107) Carbon Dioxide Level 29 mmol/L (21-32) Anion Gap 9 (6-14) Blood Urea Nitrogen 38 mg/dL (8-26) Creatinine 1.1 mg/dL (0.7-1.3) Estimated GFR (Cockcroft-Gault) 70.6 BUN/Creatinine Ratio 35 (6-20) Glucose Level 151 mg/dL (70-99) Calcium Level 8.4 mg/dL (8.5-10.1) Total Bilirubin 0.6 mg/dL (0.2-1.0) Aspartate Amino Transf (AST/SGOT) 51 U/L (15-37) Alanine Aminotransferase (ALT/SGPT) 67 U/L (16-63) Alkaline Phosphatase 163 U/L (46-116) Ammonia 44 mcmol/L (11-34) Total Protein 5.7 g/dL (6.4-8.2) Albumin 2.2 g/dL (3.4-5.0) Albumin/Globulin Ratio 0.6 (1.0-1.7) Test 10/18/20 15:18 10/18/20 16:00 Hemoglobin 7.2 g/dL (13.0-17.5) Hematocrit 22.3 % (39.0-53.0) Prothrombin Time 17.7 SEC (11.7-14.0) Prothromb Time International Ratio 1.5 (0.8-1.1) Activated Partial Thromboplast Time 37 SEC (24-38) Sodium Level 146 mmol/L (136-145) Potassium Level 4.8 mmol/L (3.5-5.1) Chloride Level 106 mmol/L (98-107) Carbon Dioxide Level 26 mmol/L (21-32) Anion Gap 14 (6-14) Blood Urea Nitrogen 40 mg/dL (8-26) Creatinine 2.2 mg/dL (0.7-1.3) Estimated GFR (Cockcroft-Gault) 31.7 BUN/Creatinine Ratio 18 (6-20) Glucose Level 239 mg/dL (70-99) Calcium Level 7.5 mg/dL (8.5-10.1) Magnesium Level 2.5 mg/dL (1.8-2.4) Total Bilirubin 0.8 mg/dL (0.2-1.0) Aspartate Amino Transf (AST/SGOT) 60 U/L (15-37) Alanine Aminotransferase (ALT/SGPT) 54 U/L (16-63) Alkaline Phosphatase 199 U/L (46-116) Total Protein 5.2 g/dL (6.4-8.2) Albumin 1.9 g/dL (3.4-5.0) Albumin/Globulin Ratio 0.6 (1.0-1.7) Laboratory Tests Test 10/17/20 18:29 10/18/20 00:00 10/18/20 01:08 10/18/20 02:00 Glucose (Fingerstick) 163 mg/dL (70-99) 146 mg/dL (70-99) Urine Collection Type Unknown Urine Color [place] Urine Clarity Clear Urine pH 6.0 (<5.0-8.0) Urine Specific [place] 1.025 (1.000-1.030) Urine Protein Negative mg/dL (NEG-TRACE) Urine Glucose (UA) Negative mg/dL (NEG) Urine Ketones (Stick) Trace mg/dL (NEG) Urine Blood Negative (NEG) Urine Nitrite Negative (NEG) Urine Bilirubin Moderate (NEG) Urine Urobilinogen Dipstick 4.0 mg/dL (0.2 mg/dL) Urine Leukocyte Esterase Negative (NEG) Urine RBC 1-2 /HPF (0-2) Urine WBC 1-4 /HPF (0-4) Urine Squamous Epithelial Cells Few /LPF Urine Bacteria Few /HPF (0-FEW) Urine Mucus Slight /LPF White Blood Count 5.2 x10^3/uL (4.0-11.0) Red Blood Count 1.99 x10^6/uL (4.30-5.70) Hemoglobin 7.1 g/dL (13.0-17.5) Hematocrit 21.2 % (39.0-53.0) Mean Corpuscular Volume 107 fL (79-100) Mean Corpuscular Hemoglobin 36 pg (25-35) Mean Corpuscular Hemoglobin Concent 33 g/dL (31-37) Red Cell Distribution Width 20.6 % (11.5-14.5) Platelet Count 149 x10^3/uL (140-400) Neutrophils (%) (Auto) 79 % (31-73) Lymphocytes (%) (Auto) 13 % (24-48) Monocytes (%) (Auto) 6 % (0-9) Eosinophils (%) (Auto) 2 % (0-3) Basophils (%) (Auto) 0 % (0-3) Neutrophils # (Auto) 4.1 x10^3/uL (1.8-7.7) Lymphocytes # (Auto) 0.7 x10^3/uL (1.0-4.8) Monocytes # (Auto) 0.3 x10^3/uL (0.0-1.1) Eosinophils # (Auto) 0.1 x10^3/uL (0.0-0.7) Basophils # (Auto) 0.0 x10^3/uL (0.0-0.2) Sodium Level 146 mmol/L (136-145) Potassium Level 4.1 mmol/L (3.5-5.1) Chloride Level 108 mmol/L (98-107) Carbon Dioxide Level 29 mmol/L (21-32) Anion Gap 9 (6-14) Blood Urea Nitrogen 38 mg/dL (8-26) Creatinine 1.1 mg/dL (0.7-1.3) Estimated GFR (Cockcroft-Gault) 70.6 BUN/Creatinine Ratio 35 (6-20) Glucose Level 151 mg/dL (70-99) Calcium Level 8.4 mg/dL (8.5-10.1) Total Bilirubin 0.6 mg/dL (0.2-1.0) Aspartate Amino Transf (AST/SGOT) 51 U/L (15-37) Alanine Aminotransferase (ALT/SGPT) 67 U/L (16-63) Alkaline Phosphatase 163 U/L (46-116) Ammonia 44 mcmol/L (11-34) Total Protein 5.7 g/dL (6.4-8.2) Albumin 2.2 g/dL (3.4-5.0) Albumin/Globulin Ratio 0.6 (1.0-1.7) Test 10/18/20 11:18 10/18/20 15:18 10/18/20 16:00 Glucose (Fingerstick) 144 mg/dL (70-99) Hemoglobin 7.2 g/dL (13.0-17.5) Hematocrit 22.3 % (39.0-53.0) Prothrombin Time 17.7 SEC (11.7-14.0) Prothromb Time International Ratio 1.5 (0.8-1.1) Activated Partial Thromboplast Time 37 SEC (24-38) Sodium Level 146 mmol/L (136-145) Potassium Level 4.8 mmol/L (3.5-5.1) Chloride Level 106 mmol/L (98-107) Carbon Dioxide Level 26 mmol/L (21-32) Anion Gap 14 (6-14) Blood Urea Nitrogen 40 mg/dL (8-26) Creatinine 2.2 mg/dL (0.7-1.3) Estimated GFR (Cockcroft-Gault) 31.7 BUN/Creatinine Ratio 18 (6-20) Glucose Level 239 mg/dL (70-99) Calcium Level 7.5 mg/dL (8.5-10.1) Magnesium Level 2.5 mg/dL (1.8-2.4) Total Bilirubin 0.8 mg/dL (0.2-1.0) Aspartate Amino Transf (AST/SGOT) 60 U/L (15-37) Alanine Aminotransferase (ALT/SGPT) 54 U/L (16-63) Alkaline Phosphatase 199 U/L (46-116) Total Protein 5.2 g/dL (6.4-8.2) Albumin 1.9 g/dL (3.4-5.0) Albumin/Globulin Ratio 0.6 (1.0-1.7) Medications Active Scripts Medications Dose Route/Sig Max Daily Dose Days Date Category Vitamin B-1 (Thiamine Hcl) 100 Mg Tablet 200 Mg PO DAILY 10/17/20 Reported Folic Acid 0.8 Mg Tablet 20 Mg PO DAILY 10/17/20 Reported B-12 (Cyanocobalamin (Vitamin B-12)) 1,000 Mcg Tablet.er 1 Tab PO DAILY 30 10/17/20 Reported Capsaicin 60 Gm Cream..g. 60 Gm TP PRN QID PRN 10/17/20 Reported Metformin Hcl 500 Mg Tablet 500 Mg PO BIDWMEALS 10/17/20 Reported Anecream (Lidocaine) 5 Gm Cream..g. 1 Lea TP PRN QID PRN 30 10/17/20 Reported Symbicort 160-4.5 Mcg Inhaler (Budesonide/Formoterol Fumarate) 10.2 Gm Hfa.aer.ad 2 Puff IH BID 10/17/20 Reported Potassium Chloride 20 Meq Tablet.er 20 Meq PO DAILY 10/17/20 Reported Cymbalta (Duloxetine Hcl) 60 Mg Capsule.dr 90 Mg PO DAILY 10/17/20 Reported Gabapentin 600 Mg Tablet 600 Mg PO TID 10/17/20 Reported Aspirin 81 Mg Tab.chew 1 Tab PO DAILY 10/17/20 Reported Cozaar (Losartan Potassium) 25 Mg Tablet 25 Mg PO DAILY 10/17/20 Reported Viagra (Sildenafil Citrate) 50 Mg Tablet 50 Mg PO ONCE PRN 10/17/20 Reported Crestor (Rosuvastatin Calcium) 5 Mg Tablet 2.5 Mg PO HS 10/17/20 Reported Flomax (Tamsulosin Hcl) 0.4 Mg Cap.er.24h 1 Cap PO DAILY 10/17/20 Reported Proair Hfa (Albuterol Sulfate) 8.5 Gm Hfa.aer.ad 2 Puff IH PRN Q4-6HRS PRN 21 10/17/20 Reported Spiriva (Tiotropium [place]) 18 Mcg Cap.w.dev 1 Cap IH DAILY 10/17/20 Reported Impression . Full consult dictated Cardiac arrest, patient found initially asystolic, went into ventricular fibrillation. Fever suspect sepsis Chronic alcoholic hepatitis See orders MINA HERZOG MD Oct 18, 2020 16:34
[2020-10-18] MEDS ORDERED: THIAMINE INJ 100 MG, FOLIC ACID INJ 1 MG in IV NORMAL SALINE 1000ML BAG 1,000 ML IV ONE (17:00)
[2020-10-18 17:21] LABS: BASE EXCESS ABG 1 mmol/L (-3-3); HCO3 ABG 28 mmol/L (21-28); PCO2 ABG 54 mmHg (35-46); PO2 ABG 84 mmHg (75-108); SAT O2 ABG 94 % (92-99)
[2020-10-18] MEDS ORDERED: ETOMIDATE 20 MG/10 ML VIAL. IV ONE (17:22)
[2020-10-18 17:26] LABS: FIO2 ABG 100
[2020-10-18] MEDS: AMIODARONE 450 MG in IV DEXTROSE 5% 250 ML IV PRN (17:41)
[2020-10-18] MEDS ORDERED: PIPERACILLIN/TAZOBACTAM 3.375 GM in IV NORMAL SALINE 50ML 50 ML IV SCH (18:00)
[2020-10-18] MEDS ORDERED: VANCOMYCIN 2 GM in IV NORMAL SALINE 500ML BAG 500 ML IV SCH (18:00)
--- NOTE | 2020-10-18 18:21 | PDOC2 ---
NEUROLOGY CONSULT Date of Service DOS: DATE: 10/18/20 TIME: 18:19 Reason for Consult Reason for Consult: Seizures, postcode Referring Physician Referring Physician: Dr. Kevin Source Source: Chart review History of Present Illness History of Present Illness The patient is a 50-year-old male admitted to [facility] on 10/14 with confusion and disorientation. The patient's girlfriend 2 weeks ago and he has been despondent. He had two CT head studies at [facility], without any intracranial abnormality. Dr. Crews saw him for neurology and felt this was metabolic encephalopathy. He had hyponatremia, hypokalemia, impaired kidney function, hyperglycemia, lactic acidosis and elevated liver enzymes; however, his ammonia level was normal. He was transferred here 2 days ago for continued altered mental status along with cholecystitis and anemia. GI has seen him. He had a CODE BLUE today at about 2:30, ventricular fibrillation. He responded to shock. About 20 minutes ago he started having some right focal seizure activity. Apparently there is no prior history of seizures. He does have a history of alcoholism and may have been drinking recently. He has severe peripheral neuropathy from the alcoholism. Past Medical History Cardiovascular: HTN, Hyperlipidemia Pulmonary: COPD GI: Inflam bowel disease (Crohn's) Psych: Addictions (alcohol) Renal/: Benign prostatic enlarg. Endocrine: Diabetes Past Surgical History Past Surgical History: Other (EGD/colonoscopies) Family History Family History: Other (Unobtainable) Social History Social History As already stated above, no additional information available Current Medications Current Medications Current Medications Albuterol Sulfate (Ventolin Neb Soln) 2.5 mg PRN Q4HRS PRN NEB SHORTNESS OF BREATH; Start 10/16/20 at 22:15 Budesonide (Pulmicort) 0.5 mg RTBID NEB Last administered on 10/18/20at 06:05; Start 10/17/20 at 08:00 Capsaicin (Zostrix) 1 lea PRN QID PRN TP MODERATE PAIN 4-6; Start 10/16/20 at 22:15 Duloxetine HCl (Cymbalta) 90 mg DAILY PO ; Start 10/17/20 at 09:00; Stop 10/17/20 at 09:45; Status DC Albuterol/ Ipratropium (Duoneb) 3 ml RTQID NEB Last administered on 10/18/20at 11:27; Start 10/17/20 at 08:00 Lidocaine HCl (Xylocaine 2% Topical 30gm Tube) 1 lea PRN QID PRN TP MUSCLE PAIN; Start 10/16/20 at 22:15 Ondansetron HCl (Zofran) 4 mg PRN Q6HRS PRN IVP NAUSEA/VOMITING 1ST CHOICE; Start 10/16/20 at 22:15 Pantoprazole Sodium (PROTONIX VIAL for IV PUSH) 40 mg DAILYAC IVP Last administered on 10/18/20at 05:10; Start 10/17/20 at 07:30 Potassium Chloride/Sodium Chloride 1,000 ml @ 125 mls/hr Q8H IV Last administered on 10/17/20at 00:43; Start 10/16/20 at 23:00; Stop 10/17/20 at 09:43; Status DC Dextrose 1,000 ml @ 100 mls/hr Q10H IV Last administered on 10/18/20at 05:08; Start 10/17/20 at 09:45 Insulin Human Lispro (HumaLOG) 0-5 UNITS PRN Q6HRS PRN SQ hyperglycemia; Start 10/17/20 at 09:45 Dextrose (Dextrose 50%-Water Syringe) 12.5 gm PRN Q15MIN PRN IV SEE COMMENTS; Start 10/17/20 at 09:45 Piperacillin Sod/ Tazobactam Sod 3.375 gm/Sodium Chloride 50 ml @ 100 mls/hr Q6HRS IV Last administered on 10/18/20at 11:32; Start 10/18/20 at 01:00 Acetaminophen (Tylenol Supp) 650 mg PRN Q6HRS PRN VA MILD PAIN / TEMP > 100.3'F Last administered on 10/18/20at 10:00; Start 10/18/20 at 00:15 Acetaminophen (Tylenol) 650 mg PRN Q6HRS PRN PO MILD PAIN / TEMP > 100.3'F; Start 10/18/20 at 00:15 Fentanyl Citrate 30 ml @ 0 mls/hr CONT PRN IV SEE PROTOCOL; Start 10/18/20 at 16:00 Midazolam HCl 100 ml @ 0 mls/hr CONT PRN IV SEE PROTOCOL; Start 10/18/20 at 16:00 Norepinephrine Bitartrate 8 mg/ Dextrose 258 ml @ 16.002 mls/ hr CONT PRN IV PER PROTOCOL; Start 10/18/20 at 16:00 Piperacillin Sod/ Tazobactam Sod (Zosyn Per Pharmacy) 1 each PRN DAILY PRN MC SEE COMMENTS; Start 10/18/20 at 16:30 Vancomycin HCl (Vanco Per Pharmacy) 1 each PRN DAILY PRN MC SEE COMMENTS; Start 10/18/20 at 16:30 Thiamine HCl 100 mg/Folic Acid 1 mg/Sodium Chloride 1,001.2 ml @ 990.198 mls/hr 1X ONCE IV Last administered on 10/18/20at 17:55; Start 10/18/20 at 17:00; Stop 10/18/20 at 18:00; Status DC Vancomycin HCl 2 gm/Sodium Chloride 500 ml @ 250 mls/hr Q24H IV Last administered on 10/18/20at 17:57; Start 10/18/20 at 18:00 Piperacillin Sod/ Tazobactam Sod 3.375 gm/Sodium Chloride 50 ml @ 100 mls/hr Q6HRS IV ; Start 10/18/20 at 18:00; Status Cancel Amiodarone HCl 450 mg/Dextrose 259 ml @ 33 mls/hr CONT PRN IV SEE I/O RECORD Last administered on 10/18/20at 17:41; Start 10/18/20 at 17:00 Etomidate (Amidate) 20 mg STK-MED ONCE IV ; Start 10/18/20 at 17:22; Stop 10/18/20 at 17:22; Status DC Active Scripts Active Reported Vitamin B-1 (Thiamine Hcl) 100 Mg Tablet 200 Mg PO DAILY Folic Acid 0.8 Mg Tablet 20 Mg PO DAILY B-12 (Cyanocobalamin (Vitamin B-12)) 1,000 Mcg Tablet.er 1 Tab PO DAILY 30 Days Capsaicin 60 Gm Cream..g. 60 Gm TP PRN QID PRN Metformin Hcl 500 Mg Tablet 500 Mg PO BIDWMEALS Anecream (Lidocaine) 5 Gm Cream..g. 1 Lea TP PRN QID PRN 30 Days Symbicort 160-4.5 Mcg Inhaler (Budesonide/Formoterol Fumarate) 10.2 Gm Hfa.aer.ad 2 Puff IH BID Potassium Chloride 20 Meq Tablet.er 20 Meq PO DAILY Cymbalta (Duloxetine Hcl) 60 Mg Capsule.dr 90 Mg PO DAILY Gabapentin 600 Mg Tablet 600 Mg PO TID Aspirin 81 Mg Tab.chew 1 Tab PO DAILY Cozaar (Losartan Potassium) 25 Mg Tablet 25 Mg PO DAILY Viagra (Sildenafil Citrate) 50 Mg Tablet 50 Mg PO ONCE PRN Crestor (Rosuvastatin Calcium) 5 Mg Tablet 2.5 Mg PO HS Flomax (Tamsulosin Hcl) 0.4 Mg Cap.er.24h 1 Cap PO DAILY Proair Hfa (Albuterol Sulfate) 8.5 Gm Hfa.aer.ad 2 Puff IH PRN Q4-6HRS PRN 21 Days Spiriva (Tiotropium [place]) 18 Mcg Cap.w.dev 1 Cap IH DAILY Allergies Allergies: Coded Allergies: lisinopril (Verified Allergy, Severe, 10/16/20) amitriptyline (Verified Allergy, Intermediate, 10/16/20) divalproex sodium (Verified Allergy, Intermediate, 10/16/20) topiramate (Verified Allergy, Intermediate, 10/16/20) ROS Review of System Unobtainable Physical Exam Physical Examination General: Well-developed, well-nourished white male in no acute distress HEENT: Normocephalic andatraumatic. Neck: Supple without bruit, no meningismus Musculoskeletal: Stability:see neurologic. Gait exam:see neurologic. Tone:see neurolo gic.Strength:see neurologic. Neurological: Mental Status:Intubated in the ICU. He is having occasional focal seizure activity in the right arm. Cranial Nerves:Pupils equal and reactive to light. There is no facial asymmetry. Reflexes:0+ and symmetric with silent plantar responses. No response to pain. Coordination and gait:Not testable. Sensory:Not testable. Vitals VITALS Vital Signs Date Time Temp Pulse Resp B/P (MAP) Pulse Ox O2 Delivery O2 Flow Rate FiO2 10/18/20 16:53 100 Ventilator 10/18/20 15:45 97.5 122 24 108/60 (76) 97.5 10/18/20 11:31 2.0 Labs Labs Laboratory Tests Test 10/17/20 08:00 10/17/20 11:52 10/17/20 15:50 10/17/20 18:29 White Blood Count 7.4 x10^3/uL (4.0-11.0) Red Blood Count 2.18 x10^6/uL (4.30-5.70) Hemoglobin 7.7 g/dL (13.0-17.5) 7.3 g/dL (13.0-17.5) Hematocrit 23.0 % (39.0-53.0) 22.1 % (39.0-53.0) Mean Corpuscular Volume 106 fL (79-100) Mean Corpuscular Hemoglobin 35 pg (25-35) Mean Corpuscular Hemoglobin Concent 34 g/dL (31-37) Red Cell Distribution Width 21.0 % (11.5-14.5) Platelet Count 133 x10^3/uL (140-400) Neutrophils (%) (Auto) 75 % (31-73) Lymphocytes (%) (Auto) 20 % (24-48) Monocytes (%) (Auto) 4 % (0-9) Eosinophils (%) (Auto) 0 % (0-3) Basophils (%) (Auto) 0 % (0-3) Neutrophils # (Auto) 5.6 x10^3/uL (1.8-7.7) Lymphocytes # (Auto) 1.5 x10^3/uL (1.0-4.8) Monocytes # (Auto) 0.3 x10^3/uL (0.0-1.1) Eosinophils # (Auto) 0.0 x10^3/uL (0.0-0.7) Basophils # (Auto) 0.0 x10^3/uL (0.0-0.2) Platelet Estimate Adequate (ADEQUATE) Microcytosis Present Sodium Level 147 mmol/L (136-145) 146 mmol/L (136-145) Potassium Level 5.5 mmol/L (3.5-5.1) 4.5 mmol/L (3.5-5.1) Chloride Level 110 mmol/L (98-107) 110 mmol/L (98-107) Carbon Dioxide Level 27 mmol/L (21-32) 28 mmol/L (21-32) Anion Gap 10 (6-14) 8 (6-14) Blood Urea Nitrogen 40 mg/dL (8-26) 42 mg/dL (8-26) Creatinine 1.0 mg/dL (0.7-1.3) 1.1 mg/dL (0.7-1.3) Estimated GFR (Cockcroft-Gault) 78.8 70.6 BUN/Creatinine Ratio 40 (6-20) Glucose Level 136 mg/dL (70-99) 147 mg/dL (70-99) Calcium Level 8.6 mg/dL (8.5-10.1) 8.5 mg/dL (8.5-10.1) Total Bilirubin 0.7 mg/dL (0.2-1.0) Aspartate Amino Transf (AST/SGOT) 80 U/L (15-37) Alanine Aminotransferase (ALT/SGPT) 85 U/L (16-63) Alkaline Phosphatase 170 U/L (46-116) Total Protein 5.8 g/dL (6.4-8.2) Albumin 2.3 g/dL (3.4-5.0) Albumin/Globulin Ratio 0.7 (1.0-1.7) Glucose (Fingerstick) 159 mg/dL (70-99) 163 mg/dL (70-99) Test 10/18/20 00:00 10/18/20 01:08 10/18/20 02:00 10/18/20 11:18 Glucose (Fingerstick) 146 mg/dL (70-99) 144 mg/dL (70-99) Urine Collection Type Unknown Urine Color [place] Urine Clarity Clear Urine pH 6.0 (<5.0-8.0) Urine Specific [place] 1.025 (1.000-1.030) Urine Protein Negative mg/dL (NEG-TRACE) Urine Glucose (UA) Negative mg/dL (NEG) Urine Ketones (Stick) Trace mg/dL (NEG) Urine Blood Negative (NEG) Urine Nitrite Negative (NEG) Urine Bilirubin Moderate (NEG) Urine Urobilinogen Dipstick 4.0 mg/dL (0.2 mg/dL) Urine Leukocyte Esterase Negative (NEG) Urine RBC 1-2 /HPF (0-2) Urine WBC 1-4 /HPF (0-4) Urine Squamous Epithelial Cells Few /LPF Urine Bacteria Few /HPF (0-FEW) Urine Mucus Slight /LPF White Blood Count 5.2 x10^3/uL (4.0-11.0) Red Blood Count 1.99 x10^6/uL (4.30-5.70) Hemoglobin 7.1 g/dL (13.0-17.5) Hematocrit 21.2 % (39.0-53.0) Mean Corpuscular Volume 107 fL (79-100) Mean Corpuscular Hemoglobin 36 pg (25-35) Mean Corpuscular Hemoglobin Concent 33 g/dL (31-37) Red Cell Distribution Width 20.6 % (11.5-14.5) Platelet Count 149 x10^3/uL (140-400) Neutrophils (%) (Auto) 79 % (31-73) Lymphocytes (%) (Auto) 13 % (24-48) Monocytes (%) (Auto) 6 % (0-9) Eosinophils (%) (Auto) 2 % (0-3) Basophils (%) (Auto) 0 % (0-3) Neutrophils # (Auto) 4.1 x10^3/uL (1.8-7.7) Lymphocytes # (Auto) 0.7 x10^3/uL (1.0-4.8) Monocytes # (Auto) 0.3 x10^3/uL (0.0-1.1) Eosinophils # (Auto) 0.1 x10^3/uL (0.0-0.7) Basophils # (Auto) 0.0 x10^3/uL (0.0-0.2) Sodium Level 146 mmol/L (136-145) Potassium Level 4.1 mmol/L (3.5-5.1) Chloride Level 108 mmol/L (98-107) Carbon Dioxide Level 29 mmol/L (21-32) Anion Gap 9 (6-14) Blood Urea Nitrogen 38 mg/dL (8-26) Creatinine 1.1 mg/dL (0.7-1.3) Estimated GFR (Cockcroft-Gault) 70.6 BUN/Creatinine Ratio 35 (6-20) Glucose Level 151 mg/dL (70-99) Calcium Level 8.4 mg/dL (8.5-10.1) Total Bilirubin 0.6 mg/dL (0.2-1.0) Aspartate Amino Transf (AST/SGOT) 51 U/L (15-37) Alanine Aminotransferase (ALT/SGPT) 67 U/L (16-63) Alkaline Phosphatase 163 U/L (46-116) Ammonia 44 mcmol/L (11-34) Total Protein 5.7 g/dL (6.4-8.2) Albumin 2.2 g/dL (3.4-5.0) Albumin/Globulin Ratio 0.6 (1.0-1.7) Test 10/18/20 15:18 10/18/20 16:00 10/18/20 17:00 Hemoglobin 7.2 g/dL (13.0-17.5) Hematocrit 22.3 % (39.0-53.0) Prothrombin Time 17.7 SEC (11.7-14.0) Prothromb Time International Ratio 1.5 (0.8-1.1) Activated Partial Thromboplast Time 37 SEC (24-38) Sodium Level 146 mmol/L (136-145) Potassium Level 4.8 mmol/L (3.5-5.1) Chloride Level 106 mmol/L (98-107) Carbon Dioxide Level 26 mmol/L (21-32) Anion Gap 14 (6-14) Blood Urea Nitrogen 40 mg/dL (8-26) Creatinine 2.2 mg/dL (0.7-1.3) Estimated GFR (Cockcroft-Gault) 31.7 BUN/Creatinine Ratio 18 (6-20) Glucose Level 239 mg/dL (70-99) Calcium Level 7.5 mg/dL (8.5-10.1) Magnesium Level 2.5 mg/dL (1.8-2.4) Total Bilirubin 0.8 mg/dL (0.2-1.0) Aspartate Amino Transf (AST/SGOT) 60 U/L (15-37) Alanine Aminotransferase (ALT/SGPT) 54 U/L (16-63) Alkaline Phosphatase 199 U/L (46-116) Troponin I Quantitative 0.017 ng/mL (0.000-0.055) Total Protein 5.2 g/dL (6.4-8.2) Albumin 1.9 g/dL (3.4-5.0) Albumin/Globulin Ratio 0.6 (1.0-1.7) O2 Saturation 94 % (92-99) Arterial Blood pH 7.33 (7.35-7.45) Arterial Blood pCO2 at Patient Temp 54 mmHg (35-46) Arterial Blood pO2 at Patient Temp 84 mmHg (75-108) Arterial Blood HCO3 28 mmol/L (21-28) Arterial Blood Base Excess 1 mmol/L (-3-3) FiO2 100 Laboratory Tests Test 10/17/20 18:29 10/18/20 00:00 10/18/20 01:08 10/18/20 02:00 Glucose (Fingerstick) 163 mg/dL (70-99) 146 mg/dL (70-99) Urine Collection Type Unknown Urine Color [place] Urine Clarity Clear Urine pH 6.0 (<5.0-8.0) Urine Specific [place] 1.025 (1.000-1.030) Urine Protein Negative mg/dL (NEG-TRACE) Urine Glucose (UA) Negative mg/dL (NEG) Urine Ketones (Stick) Trace mg/dL (NEG) Urine Blood Negative (NEG) Urine Nitrite Negative (NEG) Urine Bilirubin Moderate (NEG) Urine Urobilinogen Dipstick 4.0 mg/dL (0.2 mg/dL) Urine Leukocyte Esterase Negative (NEG) Urine RBC 1-2 /HPF (0-2) Urine WBC 1-4 /HPF (0-4) Urine Squamous Epithelial Cells Few /LPF Urine Bacteria Few /HPF (0-FEW) Urine Mucus Slight /LPF White Blood Count 5.2 x10^3/uL (4.0-11.0) Red Blood Count 1.99 x10^6/uL (4.30-5.70) Hemoglobin 7.1 g/dL (13.0-17.5) Hematocrit 21.2 % (39.0-53.0) Mean Corpuscular Volume 107 fL (79-100) Mean Corpuscular Hemoglobin 36 pg (25-35) Mean Corpuscular Hemoglobin Concent 33 g/dL (31-37) Red Cell Distribution Width 20.6 % (11.5-14.5) Platelet Count 149 x10^3/uL (140-400) Neutrophils (%) (Auto) 79 % (31-73) Lymphocytes (%) (Auto) 13 % (24-48) Monocytes (%) (Auto) 6 % (0-9) Eosinophils (%) (Auto) 2 % (0-3) Basophils (%) (Auto) 0 % (0-3) Neutrophils # (Auto) 4.1 x10^3/uL (1.8-7.7) Lymphocytes # (Auto) 0.7 x10^3/uL (1.0-4.8) Monocytes # (Auto) 0.3 x10^3/uL (0.0-1.1) Eosinophils # (Auto) 0.1 x10^3/uL (0.0-0.7) Basophils # (Auto) 0.0 x10^3/uL (0.0-0.2) Sodium Level 146 mmol/L (136-145) Potassium Level 4.1 mmol/L (3.5-5.1) Chloride Level 108 mmol/L (98-107) Carbon Dioxide Level 29 mmol/L (21-32) Anion Gap 9 (6-14) Blood Urea Nitrogen 38 mg/dL (8-26) Creatinine 1.1 mg/dL (0.7-1.3) Estimated GFR (Cockcroft-Gault) 70.6 BUN/Creatinine Ratio 35 (6-20) Glucose Level 151 mg/dL (70-99) Calcium Level 8.4 mg/dL (8.5-10.1) Total Bilirubin 0.6 mg/dL (0.2-1.0) Aspartate Amino Transf (AST/SGOT) 51 U/L (15-37) Alanine Aminotransferase (ALT/SGPT) 67 U/L (16-63) Alkaline Phosphatase 163 U/L (46-116) Ammonia 44 mcmol/L (11-34) Total Protein 5.7 g/dL (6.4-8.2) Albumin 2.2 g/dL (3.4-5.0) Albumin/Globulin Ratio 0.6 (1.0-1.7) Test 10/18/20 11:18 10/18/20 15:18 10/18/20 16:00 10/18/20 17:00 Glucose (Fingerstick) 144 mg/dL (70-99) Hemoglobin 7.2 g/dL (13.0-17.5) Hematocrit 22.3 % (39.0-53.0) Prothrombin Time 17.7 SEC (11.7-14.0) Prothromb Time International Ratio 1.5 (0.8-1.1) Activated Partial Thromboplast Time 37 SEC (24-38) Sodium Level 146 mmol/L (136-145) Potassium Level 4.8 mmol/L (3.5-5.1) Chloride Level 106 mmol/L (98-107) Carbon Dioxide Level 26 mmol/L (21-32) Anion Gap 14 (6-14) Blood Urea Nitrogen 40 mg/dL (8-26) Creatinine 2.2 mg/dL (0.7-1.3) Estimated GFR (Cockcroft-Gault) 31.7 BUN/Creatinine Ratio 18 (6-20) Glucose Level 239 mg/dL (70-99) Calcium Level 7.5 mg/dL (8.5-10.1) Magnesium Level 2.5 mg/dL (1.8-2.4) Total Bilirubin 0.8 mg/dL (0.2-1.0) Aspartate Amino Transf (AST/SGOT) 60 U/L (15-37) Alanine Aminotransferase (ALT/SGPT) 54 U/L (16-63) Alkaline Phosphatase 199 U/L (46-116) Troponin I Quantitative 0.017 ng/mL (0.000-0.055) Total Protein 5.2 g/dL (6.4-8.2) Albumin 1.9 g/dL (3.4-5.0) Albumin/Globulin Ratio 0.6 (1.0-1.7) O2 Saturation 94 % (92-99) Arterial Blood pH 7.33 (7.35-7.45) Arterial Blood pCO2 at Patient Temp 54 mmHg (35-46) Arterial Blood pO2 at Patient Temp 84 mmHg (75-108) Arterial Blood HCO3 28 mmol/L (21-28) Arterial Blood Base Excess 1 mmol/L (-3-3) FiO2 [address] head without contrast 10/15/2020 4:39 AM INDICATION: Altered mental status, seizure-like activity. COMPARISON: CT head 10/14/2020 TECHNIQUE: Multiple axial CT images of the head were obtained from skull base through the vertex without intravenous contrast. FINDINGS: Head: Ventricles, sulci and basal cisterns are prominent compatible with mild generalized cerebral line loss. There is no hydrocephalus. Flores-white matter differentiation is normal. There is no acute intracranial hemorrhage. There is no mass, mass effect or midline shift. Posterior fossa is normal in appearance. Visualized portions of the orbits are normal.. Moderate mucosal thickening of the right maxillary sinus. Mastoid air cells are well aerated. Scalp and calvaria are normal. IMPRESSION: No acute intracranial hemorrhage. Mild generalized cerebral volume loss. Assessment/Plan Assessment/Plan Impression: Anoxic encephalopathy, having seizure activity focally on the right side Prior metabolic encephalopathy that was improving. Acute kidney injury, hypokalemia and hyponatremia, chronic alcoholic liver disease, Crohn's disease, hypertension, hyperlipidemia, chronic obstructive pulmonary disease, benign prostatic hypertrophy. Recommendations: Stat CT head Levetiracetam Treat medical diseases EEG tomorrow No family available, mother lives in [place]. Thank you for letting me help with the patient's care. MATHEW PERRY MD Oct 18, 2020 18:21
[2020-10-18] MEDS: NOREPINEPHRINE VIAL 8 MG in IV DEXTROSE 5% 250 ML IV PRN ×2 (18:22→23:36)
[2020-10-18] MEDS: levETIRAcetam 500 MG in IV DEXTROSE 5% 100ML 100 ML IV SCH (18:28)
--- NOTE | 2020-10-18 18:59 | RAD ---
Exam: CT head INDICATION: Post code TECHNIQUE: Sequential axial images through the head were obtained without the administration of IV co ntrast. Comparisons: None FINDINGS: Evaluation is mild limited secondary to patient motion, despite repeat scan. No focal parenchymal lesion or hemorrhage is identified. There is no midline shift or sulcal effaceme nt. No acute vascular territory infarction is identified. Flores-white distinction is preserved. The ventricular system is within normal limits without compression hydrocephalus. The basal cisterns are well maintained. The visualized portions of the paranasal sinuses and mastoid air cells are well-pneumatized. No acute fractures. IMPRESSION: No acute intracranial abnormality. Exposure: One or more of the following in the visualized dose reduction techniques were utilized for this examination: 1. Automated exposure control 2. Adjustment of the MA and/or KV according to patient size Use of iterative of reconstructive technique Electronically signed by: Nacho Bustamante MD (10/18/2020 6:57 PM) [facility]
--- NOTE | 2020-10-18 20:05 | NUR ---
Pharmacy Vancomycin Dosing Note S:Consulted to monitor and dose vancomycin started 10/18/20. O:RAJINDER BOWSER is a 50 year old M with sepsis; s/p cardiac arrest today. Height: 6 feet, 0 inches Weight: 82.7 kg Dosing Weight: Actual Other Antibiotics: ZOSYN 3.375G IV Q6HRS LABS: Last BUN: 40 Last Creatinine: 2.2 Creatinine Clearance: 44 mL/min Last WBC: 5.2 Last Procalcitonin: - Tmax (past 24 hours): 101.9 Microbiology: BLOOD CX PENDING I/O: 200/300 Vancomycin Dosing: Loading Dose: 2000 mg x1 Dosing Weight: Actual Target Trough: 15-20 A: Patient requires vancomycin for sepsis, goal trough 15-20 mcg/ml. His SCr is significantly elevaeted from baseline at 2.2 with an eCrCl of 44 ml/min. Initiate vancomycin cautiously given SCr elevation: P: 1. Initiate Vancomycin 2000 mg IV x 1 dose, then 1250 mg IV q24h 2. Follow up Trough level on 10/20/20 at 1730 3. Pharmacy will continue to monitor, follow and adjust therapy as needed. DEREJE LEBRON RPH, 10/18/202004
--- NOTE | 2020-10-18 20:12 | CONS ---
DATE OF CONSULTATION: 10/18/2020 ATTENDING PHYSICIAN: Dr. Kevin. CONSULTING PHYSICIAN: Dr. Herzog. REASON FOR CONSULTATION: The patient is seen in pulmonary consultation at the request of Dr. Kevin status post cardiac arrest. The patient was found in the Emergency Room with asystole, CPR was initiated, then he went to feed ventricular fibrillation, shocked x 2. He was given amiodarone, sodium bicarbonate. He is now in the intensive care unit on mechanical ventilation, assist control rate of 20, tidal volume of 400. The patient was recently seen by GI Service yesterday. He came in with right upper quadrant abdominal pain, anemia, nausea with past history of Crohn's disease, hypertension, hyperlipidemia, COPD, chronic alcoholism. He was admitted with worsening mental status change and anemia. The patient was able to initially give minimal history. He had been confused. His ammonia level was less than 10. GI Service felt that his abdominal pain, nausea, vomiting was likely due to multifactorial etiology, diagnosed with stress, peptic ulcer disease, alcoholic hepatitis, varices, acute cholecystitis. He was started on medical management. He was given therapy for alcohol withdrawal. As indicated above, today, he was found in his room with asystole, was resuscitated. He is currently on mechanical ventilation. Over the last 24 hours, he has had a T-max of 101.9, yesterday he had 101. His labs, white count was normal. Hemoglobin and hematocrit chronically low. Electrolytes were noted. BUN was 38, creatinine was 1.1. AST and ALT were elevated. Glucose was slightly elevated. Upon admission, his albumin was quite low. PAST MEDICAL HISTORY: Chronic alcohol hepatitis, type 2 diabetes, Crohn's disease, hypertension, hyperlipidemia, COPD, benign prostatic hypertrophy. PAST SURGICAL HISTORY: Multiple EGDs and colonoscopies. ALLERGIES: LISTED TO AMITRIPTYLINE, DIVALPROEX, LISINOPRIL, TOPIRAMATE. HOME MEDICATIONS: List was reviewed. At home, he was utilizing bronchodilators. FAMILY HISTORY: Three sisters, one brother, who are healthy. His father at the age of 74 with complications of carotid artery disease. REVIEW OF SYSTEMS: Unobtainable secondary to current condition. SOCIAL HISTORY: He has been twice, twice, lives with his girlfriend who recently , quit tobacco. He drinks 3 times a week, mainly wine at this time. At one point, he was using whiskey and vodka. PHYSICAL EXAMINATION: GENERAL: The patient is in the intensive care unit. He is currently hypotensive. He is given IV fluids. He was started on norepinephrine, currently on 100%, 7 of PEEP. HEENT: Eyes: The sclerae were nonicteric. NECK: Jugular venous distention was not elevated. CHEST: Full expansion. LUNGS: Rales throughout both lung phillips. CARDIOVASCULAR: Regular rate and rhythm with S1, S2, no S3. ABDOMEN: Soft, nontender. EXTREMITIES: No clubbing or cyanosis. No pitting edema. NEUROLOGIC: The patient was sedated. LABORATORY DATA: Labs as indicated above. White count was noted. IMAGING: Chest x-ray repeat post-intubation is pending. He did have basilar consolidation. Prior to his code, he had bibasilar opacifications. IMPRESSION: 1. Acute respiratory failure secondary to cardiac arrest. 2. Cardiac arrest. Initially, the patient found to be in asystole, then went into ventricular fibrillation, shocked x 2, started on amiodarone. 3. Fever, suspect sepsis. 4. Rule out COVID-19. 5. Chronic alcoholic hepatitis. 6. Metabolic toxic encephalopathy. 7. Alcoholic hepatitis. 8. Crohn's disease. 9. Type 2 diabetes. 10. Hypertension. 11. Hyperlipidemia. 12. Chronic obstructive pulmonary disease. 13. Abnormal x-ray. 14. Possible aspiration pneumonia. PLAN: 1. Continue current support with AC, increase minute ventilation, repeat arterial blood gas. 2. Repeat chest x-ray. 3. Empiric antibiotics for both gram-positive and gram-negative organisms. 4. Obtain blood cultures. 5. Consult ID. 6. DVT and GI prophylaxis. 7. Consult Cardiology. 8. Follow GI input. 9. Alcohol withdrawal protocol. 10. Repeat chemistries. 11. Rule out myocardial infarction. I do appreciate the privilege in sharing in the patient's care. Total cumulative critical care time from 3:40 p.m. to 4:29 p.m. MINA HERZOG MD DR: [email or web address] JOB#: [id number] / [id number]
[2020-10-19] VITALS (36 sets, daily range): BP systolic 87–177; BP diastolic 59–86
[2020-10-19] MEDS: PIPERACILLIN/TAZOBACTAM 3.375 GM in IV NORMAL SALINE 50ML 50 ML IV SCH ×5 (01:13→23:33)
[2020-10-19] MEDS: IV DEXTROSE 5% 1,000 ML IV SCH ×3 (01:45→18:07)
[2020-10-19] MEDS: AMIODARONE 450 MG in IV DEXTROSE 5% 250 ML IV PRN (03:31)
[2020-10-19] MEDS: NOREPINEPHRINE VIAL 8 MG in IV DEXTROSE 5% 250 ML IV PRN ×3 (03:31→12:57)
[2020-10-19] MEDS: ACETAMINOPHEN 325 MG TABLET. PO PRN ×2 (04:36→23:32)
[2020-10-19] MEDS: PANTOPRAZOLE IV PUSH 40 MG VIAL. IVP SCH (06:46)
[2020-10-19 08:16] LABS: BASE EXCESS ABG -2 mmol/L (-3-3); CORRECTED PCO2 ABG 37 mmHg; CORRECTED PO2 ABG 339 mmHg; HCO3 ABG 22 mmol/L (21-28); PCO2 ABG 34 mmHg (35-46); PO2 ABG 329 mmHg (75-108); SAT O2 ABG 99 % (92-99)
[2020-10-19 08:20] LABS: HEMATOCRIT 27.6 % (39.0-53.0); HEMOGLOBIN 8.8 g/dL (13.0-17.5); RED BLOOD COUNT 2.57 x10^6/uL (4.30-5.70); RED CELL DISTRIBUTION WIDTH 19.4 % (11.5-14.5); WHITE BLOOD COUNT 25.1 x10^3/uL (4.0-11.0)
[2020-10-19 08:32] LABS: ALBUMIN/GLOBULIN RATIO 0.5 (1.0-1.7); CALCIUM 7.5 mg/dL (8.5-10.1); CREATININE 2.7 mg/dL (0.7-1.3); TOTAL PROTEIN 6.1 g/dL (6.4-8.2)
[2020-10-19 08:33] LABS: POTASSIUM 5.3 mmol/L (3.5-5.1); TOTAL BILIRUBIN 1.3 mg/dL (0.2-1.0)
--- NOTE | 2020-10-19 08:35 | PDOC ---
PROGRESS NOTES Date of Service DATE: 10/19/20 TIME: 08:34 Assessment Anoxic encephalopathy, no sign of seizure activity, no evidence of brain function except he did take some breaths during the apnea test Prior metabolic encephalopathy that was improving. Acute kidney injury, hypokalemia and hyponatremia, chronic alcoholic liver disease, Crohn's disease, hypertension, hyperlipidemia, chronic obstructive pulmonary disease, benign prostatic hypertrophy. Plan Levetiracetam Treat medical diseases EEG Discussed with patient's mother Objective Vital Signs Date Time Temp Pulse Resp B/P (MAP) Pulse Ox O2 Delivery O2 Flow Rate FiO2 10/19/20 08:16 101 24 118/70 (86) 100 Ventilator 10/19/20 07:48 102.0 102.0 10/18/20 11:31 2.0 Intake and Output 10/19/20 07:00 Intake Total 3753 ml Output Total 260 ml Balance 3493 ml IV Total 3753 ml Output Urine Total 260 ml PHYSICAL EXAM Neurology Brain note Prerequisites (all must be checked) Coma, irreversible and cause known. Neuroimaging explains coma. COVER MARKER depressant drug effect absent (if indicated toxicology screen; if barbiturates given, serum level <10 g/mL). No evidence of residual paralytics (electrical stimulation if paralytics used). Absence of severe acid-base, electrolyte, endocrine abnormality. Normothermia or mild hypothermia (core temperature >36C). Systolic blood pressure =100 mm Hg. No spontaneous respirations. Examination (all must be checked) Pupils nonreactive to bright light. Corneal reflex absent. Oculocephalic reflex absent (tested only if C-spineintegrity ensured). Oculovestibular reflex absent. No facial movement to noxious stimuli at supraorbital nerve, temporomandibular joint. Gag reflex absent. Cough reflex absent to tracheal suctioning. Absence of motor response to noxious stimuli in all four limbs (spinally mediated reflexes are permissible). Apnea testing Patient took breaths Review of Relevant I have reviewed the following items giovanna (where applicable) has been applied. Labs Laboratory Tests Test 10/17/20 11:52 10/17/20 15:50 10/17/20 18:29 10/18/20 00:00 Glucose (Fingerstick) 159 mg/dL (70-99) 163 mg/dL (70-99) 146 mg/dL (70-99) Hemoglobin 7.3 g/dL (13.0-17.5) Hematocrit 22.1 % (39.0-53.0) Sodium Level 146 mmol/L (136-145) Potassium Level 4.5 mmol/L (3.5-5.1) Chloride Level 110 mmol/L (98-107) Carbon Dioxide Level 28 mmol/L (21-32) Anion Gap 8 (6-14) Blood Urea Nitrogen 42 mg/dL (8-26) Creatinine 1.1 mg/dL (0.7-1.3) Estimated GFR (Cockcroft-Gault) 70.6 Glucose Level 147 mg/dL (70-99) Calcium Level 8.5 mg/dL (8.5-10.1) Test 10/18/20 01:08 10/18/20 02:00 10/18/20 11:18 10/18/20 15:18 Urine Collection Type Unknown Urine Color [place] Urine Clarity Clear Urine pH 6.0 (<5.0-8.0) Urine Specific [place] 1.025 (1.000-1.030) Urine Protein Negative mg/dL (NEG-TRACE) Urine Glucose (UA) Negative mg/dL (NEG) Urine Ketones (Stick) Trace mg/dL (NEG) Urine Blood Negative (NEG) Urine Nitrite Negative (NEG) Urine Bilirubin Moderate (NEG) Urine Urobilinogen Dipstick 4.0 mg/dL (0.2 mg/dL) Urine Leukocyte Esterase Negative (NEG) Urine RBC 1-2 /HPF (0-2) Urine WBC 1-4 /HPF (0-4) Urine Squamous Epithelial Cells Few /LPF Urine Bacteria Few /HPF (0-FEW) Urine Mucus Slight /LPF White Blood Count 5.2 x10^3/uL (4.0-11.0) Red Blood Count 1.99 x10^6/uL (4.30-5.70) Hemoglobin 7.1 g/dL (13.0-17.5) 7.2 g/dL (13.0-17.5) Hematocrit 21.2 % (39.0-53.0) 22.3 % (39.0-53.0) Mean Corpuscular Volume 107 fL (79-100) Mean Corpuscular Hemoglobin 36 pg (25-35) Mean Corpuscular Hemoglobin Concent 33 g/dL (31-37) Red Cell Distribution Width 20.6 % (11.5-14.5) Platelet Count 149 x10^3/uL (140-400) Neutrophils (%) (Auto) 79 % (31-73) Lymphocytes (%) (Auto) 13 % (24-48) Monocytes (%) (Auto) 6 % (0-9) Eosinophils (%) (Auto) 2 % (0-3) Basophils (%) (Auto) 0 % (0-3) Neutrophils # (Auto) 4.1 x10^3/uL (1.8-7.7) Lymphocytes # (Auto) 0.7 x10^3/uL (1.0-4.8) Monocytes # (Auto) 0.3 x10^3/uL (0.0-1.1) Eosinophils # (Auto) 0.1 x10^3/uL (0.0-0.7) Basophils # (Auto) 0.0 x10^3/uL (0.0-0.2) Sodium Level 146 mmol/L (136-145) Potassium Level 4.1 mmol/L (3.5-5.1) Chloride Level 108 mmol/L (98-107) Carbon Dioxide Level 29 mmol/L (21-32) Anion Gap 9 (6-14) Blood Urea Nitrogen 38 mg/dL (8-26) Creatinine 1.1 mg/dL (0.7-1.3) Estimated GFR (Cockcroft-Gault) 70.6 BUN/Creatinine Ratio 35 (6-20) Glucose Level 151 mg/dL (70-99) Calcium Level 8.4 mg/dL (8.5-10.1) Total Bilirubin 0.6 mg/dL (0.2-1.0) Aspartate Amino Transf (AST/SGOT) 51 U/L (15-37) Alanine Aminotransferase (ALT/SGPT) 67 U/L (16-63) Alkaline Phosphatase 163 U/L (46-116) Ammonia 44 mcmol/L (11-34) Total Protein 5.7 g/dL (6.4-8.2) Albumin 2.2 g/dL (3.4-5.0) Albumin/Globulin Ratio 0.6 (1.0-1.7) Glucose (Fingerstick) 144 mg/dL (70-99) Test 10/18/20 16:00 10/18/20 17:00 10/18/20 17:45 10/19/20 03:33 Prothrombin Time 17.7 SEC (11.7-14.0) Prothromb Time International Ratio 1.5 (0.8-1.1) Activated Partial Thromboplast Time 37 SEC (24-38) Sodium Level 146 mmol/L (136-145) Potassium Level 4.8 mmol/L (3.5-5.1) Chloride Level 106 mmol/L (98-107) Carbon Dioxide Level 26 mmol/L (21-32) Anion Gap 14 (6-14) Blood Urea Nitrogen 40 mg/dL (8-26) Creatinine 2.2 mg/dL (0.7-1.3) Estimated GFR (Cockcroft-Gault) 31.7 BUN/Creatinine Ratio 18 (6-20) Glucose Level 239 mg/dL (70-99) Calcium Level 7.5 mg/dL (8.5-10.1) Magnesium Level 2.5 mg/dL (1.8-2.4) Total Bilirubin 0.8 mg/dL (0.2-1.0) Aspartate Amino Transf (AST/SGOT) 60 U/L (15-37) Alanine Aminotransferase (ALT/SGPT) 54 U/L (16-63) Alkaline Phosphatase 199 U/L (46-116) Troponin I Quantitative 0.017 ng/mL (0.000-0.055) Total Protein 5.2 g/dL (6.4-8.2) Albumin 1.9 g/dL (3.4-5.0) Albumin/Globulin Ratio 0.6 (1.0-1.7) O2 Saturation 94 % (92-99) Arterial Blood pH 7.33 (7.35-7.45) Arterial Blood pCO2 at Patient Temp 54 mmHg (35-46) Arterial Blood pO2 at Patient Temp 84 mmHg (75-108) Arterial Blood HCO3 28 mmol/L (21-28) Arterial Blood Base Excess 1 mmol/L (-3-3) FiO2 100 SARS-CoV-2 Antigen (Rapid) Negative (NEGATIVE) Glucose (Fingerstick) 232 mg/dL (70-99) Test 10/19/20 08:05 White Blood Count 25.1 x10^3/uL (4.0-11.0) Red Blood Count 2.57 x10^6/uL (4.30-5.70) Hemoglobin 8.8 g/dL (13.0-17.5) Hematocrit 27.6 % (39.0-53.0) Mean Corpuscular Volume 108 fL (79-100) Mean Corpuscular Hemoglobin 34 pg (25-35) Mean Corpuscular Hemoglobin Concent 32 g/dL (31-37) Red Cell Distribution Width 19.4 % (11.5-14.5) Platelet Count 207 x10^3/uL (140-400) Laboratory Tests Test 10/18/20 11:18 10/18/20 15:18 10/18/20 16:00 10/18/20 17:00 Glucose (Fingerstick) 144 mg/dL (70-99) Hemoglobin 7.2 g/dL (13.0-17.5) Hematocrit 22.3 % (39.0-53.0) Prothrombin Time 17.7 SEC (11.7-14.0) Prothromb Time International Ratio 1.5 (0.8-1.1) Activated Partial Thromboplast Time 37 SEC (24-38) Sodium Level 146 mmol/L (136-145) Potassium Level 4.8 mmol/L (3.5-5.1) Chloride Level 106 mmol/L (98-107) Carbon Dioxide Level 26 mmol/L (21-32) Anion Gap 14 (6-14) Blood Urea Nitrogen 40 mg/dL (8-26) Creatinine 2.2 mg/dL (0.7-1.3) Estimated GFR (Cockcroft-Gault) 31.7 BUN/Creatinine Ratio 18 (6-20) Glucose Level 239 mg/dL (70-99) Calcium Level 7.5 mg/dL (8.5-10.1) Magnesium Level 2.5 mg/dL (1.8-2.4) Total Bilirubin 0.8 mg/dL (0.2-1.0) Aspartate Amino Transf (AST/SGOT) 60 U/L (15-37) Alanine Aminotransferase (ALT/SGPT) 54 U/L (16-63) Alkaline Phosphatase 199 U/L (46-116) Troponin I Quantitative 0.017 ng/mL (0.000-0.055) Total Protein 5.2 g/dL (6.4-8.2) Albumin 1.9 g/dL (3.4-5.0) Albumin/Globulin Ratio 0.6 (1.0-1.7) O2 Saturation 94 % (92-99) Arterial Blood pH 7.33 (7.35-7.45) Arterial Blood pCO2 at Patient Temp 54 mmHg (35-46) Arterial Blood pO2 at Patient Temp 84 mmHg (75-108) Arterial Blood HCO3 28 mmol/L (21-28) Arterial Blood Base Excess 1 mmol/L (-3-3) FiO2 100 Test 10/18/20 17:45 10/19/20 03:33 10/19/20 08:05 SARS-CoV-2 Antigen (Rapid) Negative (NEGATIVE) Glucose (Fingerstick) 232 mg/dL (70-99) White Blood Count 25.1 x10^3/uL (4.0-11.0) Red Blood Count 2.57 x10^6/uL (4.30-5.70) Hemoglobin 8.8 g/dL (13.0-17.5) Hematocrit 27.6 % (39.0-53.0) Mean Corpuscular Volume 108 fL (79-100) Mean Corpuscular Hemoglobin 34 pg (25-35) Mean Corpuscular Hemoglobin Concent 32 g/dL (31-37) Red Cell Distribution Width 19.4 % (11.5-14.5) Platelet Count 207 x10^3/uL (140-400) Microbiology 10/18/20 Blood Culture - Preliminary, Resulted NO GROWTH AFTER 1 DAY Medications Current Medications Albuterol Sulfate (Ventolin Neb Soln) 2.5 mg PRN Q4HRS PRN NEB SHORTNESS OF BREATH; Start 10/16/20 at 22:15 Budesonide (Pulmicort) 0.5 mg RTBID NEB Last administered on 10/18/20at 06:05; Start 10/17/20 at 08:00 Capsaicin (Zostrix) 1 lea PRN QID PRN TP MODERATE PAIN 4-6; Start 10/16/20 at 22:15 Duloxetine HCl (Cymbalta) 90 mg DAILY PO ; Start 10/17/20 at 09:00; Stop 10/17/20 at 09:45; Status DC Albuterol/ Ipratropium (Duoneb) 3 ml RTQID NEB Last administered on 10/18/20at 11:27; Start 10/17/20 at 08:00 Lidocaine HCl (Xylocaine 2% Topical 30gm Tube) 1 lea PRN QID PRN TP MUSCLE PAIN; Start 10/16/20 at 22:15 Ondansetron HCl (Zofran) 4 mg PRN Q6HRS PRN IVP NAUSEA/VOMITING 1ST CHOICE; Start 10/16/20 at 22:15 Pantoprazole Sodium (PROTONIX VIAL for IV PUSH) 40 mg DAILYAC IVP Last administered on 10/19/20at 06:46; Start 10/17/20 at 07:30 Potassium Chloride/Sodium Chloride 1,000 ml @ 125 mls/hr Q8H IV Last administered on 10/17/20at 00:43; Start 10/16/20 at 23:00; Stop 10/17/20 at 09:43; Status DC Dextrose 1,000 ml @ 100 mls/hr Q10H IV Last administered on 10/19/20at 06:46; Start 10/17/20 at 09:45 Insulin Human Lispro (HumaLOG) 0-5 UNITS PRN Q6HRS PRN SQ hyperglycemia; Start 10/17/20 at 09:45 Dextrose (Dextrose 50%-Water Syringe) 12.5 gm PRN Q15MIN PRN IV SEE COMMENTS; Start 10/17/20 at 09:45 Piperacillin Sod/ Tazobactam Sod 3.375 gm/Sodium Chloride 50 ml @ 100 mls/hr Q6HRS IV Last administered on 10/19/20at 06:47; Start 10/18/20 at 01:00 Acetaminophen (Tylenol Supp) 650 [address] Q6HRS PRN CT MILD PAIN / TEMP > 100.3'F Last administered on 10/18/20at 10:00; Start 10/18/20 at 00:15 Acetaminophen (Tylenol) 650 mg PRN Q6HRS PRN PO MILD PAIN / TEMP > 100.3'F Last administered on 10/19/20at 04:36; Start 10/18/20 at 00:15 Fentanyl Citrate 30 ml @ 0 mls/hr CONT PRN IV SEE PROTOCOL; Start 10/18/20 at 16:00 Midazolam HCl 100 ml @ 0 mls/hr CONT PRN IV SEE PROTOCOL; Start 10/18/20 at 16:00 Norepinephrine Bitartrate 8 mg/ Dextrose 258 ml @ 16.002 mls/ hr CONT PRN IV PER PROTOCOL Last administered on 10/19/20at 07:58; Start 10/18/20 at 16:00 Piperacillin Sod/ Tazobactam Sod (Zosyn Per Pharmacy) 1 each PRN DAILY PRN MC SEE COMMENTS; Start 10/18/20 at 16:30 Vancomycin HCl (Vanco Per Pharmacy) 1 each PRN DAILY PRN MC SEE COMMENTS Last administered on 10/18/20at 20:04; Start 10/18/20 at 16:30 Thiamine HCl 100 mg/Folic Acid 1 mg/Sodium Chloride 1,001.2 ml @ 990.198 mls/hr 1X ONCE IV Last administered on 10/18/20at 17:55; Start 10/18/20 at 17:00; Stop 10/18/20 at 18:00; Status DC Vancomycin HCl 2 gm/Sodium Chloride 500 ml @ 250 mls/hr Q24H IV Last administered on 10/18/20at 17:57; Start 10/18/20 at 18:00; Stop 10/18/20 at 21:00; Status DC Piperacillin Sod/ Tazobactam Sod 3.375 gm/Sodium Chloride 50 ml @ 100 mls/hr Q6HRS IV ; Start 10/18/20 at 18:00; Status Cancel Amiodarone HCl 450 mg/Dextrose 259 ml @ 33 mls/hr CONT PRN IV SEE I/O RECORD Last administered on 10/19/20at 03:31; Start 10/18/20 at 17:00; Stop 10/19/20 at 03:32; Status DC Etomidate (Amidate) 20 mg STK-MED ONCE IV ; Start 10/18/20 at 17:22; Stop 10/18/20 at 17:22; Status DC Levetiracetam 500 mg/Dextrose 105 ml @ 420 mls/hr Q12HR IV Last administered on 10/18/20at 18:28; Start 10/18/20 at 18:28 Vancomycin HCl 1.25 gm/Sodium Chloride 250 ml @ 167 mls/hr Q24H IV ; Start 10/19/20 at 18:00 Vancomycin HCl (Vancomycin Trough Level) 1 each 1X ONCE MC ; Start 10/20/20 at 17:30; Stop 10/20/20 at 17:31 Active Scripts Active Reported Vitamin B-1 (Thiamine Hcl) 100 Mg Tablet 200 Mg PO DAILY Folic Acid 0.8 Mg Tablet 20 Mg PO DAILY B-12 (Cyanocobalamin (Vitamin B-12)) 1,000 Mcg Tablet.er 1 Tab PO DAILY 30 Days Capsaicin 60 Gm Cream..g. 60 Gm TP PRN QID PRN Metformin Hcl 500 Mg Tablet 500 Mg PO BIDWMEALS Anecream (Lidocaine) 5 Gm Cream..g. 1 Lea TP PRN QID PRN 30 Days Symbicort 160-4.5 Mcg Inhaler (Budesonide/Formoterol Fumarate) 10.2 Gm Hfa.aer.ad 2 Puff IH BID Potassium Chloride 20 Meq Tablet.er 20 Meq PO DAILY Cymbalta (Duloxetine Hcl) 60 Mg Capsule.dr 90 Mg PO DAILY Gabapentin 600 Mg Tablet 600 Mg PO TID Aspirin 81 Mg Tab.chew 1 Tab PO DAILY Cozaar (Losartan Potassium) 25 Mg Tablet 25 Mg PO DAILY Viagra (Sildenafil Citrate) 50 Mg Tablet 50 Mg PO ONCE PRN Crestor (Rosuvastatin Calcium) 5 Mg Tablet 2.5 Mg PO HS Flomax (Tamsulosin Hcl) 0.4 Mg Cap.er.24h 1 Cap PO DAILY Proair Hfa (Albuterol Sulfate) 8.5 Gm Hfa.aer.ad 2 Puff IH PRN Q4-6HRS PRN 21 Days Spiriva (Tiotropium [place]) 18 Mcg Cap.w.dev 1 Cap IH DAILY Vitals/I & O Vital Sign - Last 24 Hours 10/18/20 10/18/20 10/18/20 10/18/20 11:00 11:31 15:45 16:15 Temp 101.9 97.5 101.9 97.5 Pulse 121 122 116 Resp 20 24 24 B/P (MAP) 94/48 (63) 108/60 (76) 103/60 (74) Pulse Ox 90 91 97 O2 Delivery Nasal Cannula Nasal Cannula Ventilator Ventilator O2 Flow Rate 2.0 2.0 10/18/20 10/18/20 10/18/20 10/18/20 16:30 16:45 16:53 17:00 Pulse 120 120 124 Resp 24 24 24 B/P (MAP) 104/63 (77) 110/65 (80) 109/55 (73) Pulse Ox 100 100 100 100 O2 Delivery Ventilator Ventilator Ventilator Ventilator 10/18/20 10/18/20 10/18/20 10/18/20 17:30 18:00 18:30 19:00 Pulse 126 128 126 128 Resp 24 24 24 24 B/P (MAP) 90/58 (69) 107/65 (79) 104/57 (73) 107/64 (78) Pulse Ox 99 100 100 100 O2 Delivery Ventilator Ventilator Ventilator Ventilator 10/18/20 10/18/20 10/18/20 10/18/20 19:30 20:00 20:00 20:30 Temp 103.8 103.8 Pulse 128 128 122 Resp 24 24 24 B/P (MAP) 107/66 (80) 100/75 (83) 105/69 (81) Pulse Ox 100 100 100 O2 Delivery Ventilator Ventilator Mechanical Ventilator Ventilator 10/18/20 10/18/20 10/18/20 10/18/20 21:00 21:00 21:30 22:00 Temp 102.9 102.9 Pulse 122 122 120 Resp 24 24 24 B/P (MAP) 109/67 (81) 87/65 (72) 95/63 (74) Pulse Ox 100 100 100 100 O2 Delivery Ventilator Ventilator Ventilator Ventilator 10/18/20 10/18/20 10/18/20 10/18/20 22:30 23:00 23:30 23:45 Pulse 118 120 110 Resp 24 24 24 B/P (MAP) 91/57 (68) 81/53 (62) 98/59 (72) Pulse Ox 100 100 100 100 O2 Delivery Ventilator Ventilator Ventilator Ventilator 10/19/20 10/19/20 10/19/20 10/19/20 00:00 00:00 00:30 01:00 Temp 102.9 102.9 Pulse 112 112 110 Resp 24 24 24 B/P (MAP) 101/59 (73) 98/65 (76) 92/67 (75) Pulse Ox 100 100 100 O2 Delivery Mechanical Ventilator Ventilator Ventilator Ventilator 10/19/20 10/19/20 10/19/20 10/19/20 01:30 02:00 02:30 03:00 Temp 102.8 102.8 Pulse 110 106 106 106 Resp 24 24 24 24 B/P (MAP) 104/67 (79) 103/64 (77) 107/61 (76) 102/64 (77) Pulse Ox 98 97 100 100 O2 Delivery Ventilator Ventilator Ventilator Ventilator 10/19/20 10/19/20 10/19/20 10/19/20 03:30 04:00 04:00 04:05 Temp 102.6 102.6 Pulse 120 104 Resp 24 24 B/P (MAP) 87/61 (70) 109/62 (78) Pulse Ox 100 100 100 O2 Delivery Ventilator Ventilator Mechanical Ventilator Ventilator 10/19/20 10/19/20 10/19/20 10/19/20 04:30 05:00 05:30 06:00 Temp 102.2 102.2 Pulse 106 106 106 105 Resp 24 24 24 24 B/P (MAP) 114/66 (82) 111/68 (82) 116/69 (85) 177/70 (105) Pulse Ox 100 100 100 100 O2 Delivery Ventilator Ventilator Ventilator Ventilator 10/19/20 10/19/20 07:48 08:16 Temp 102.0 102.0 Pulse 111 101 Resp 24 24 B/P (MAP) 119/65 (83) 118/70 (86) Pulse Ox 100 100 O2 Delivery Ventilator Ventilator Intake and Output 10/18/20 10/18/20 10/19/20 15:00 23:00 07:00 Intake Total 150 ml 3603 ml Output Total 225 ml 35 ml Balance -75 ml [address] head INDICATION: Post code TECHNIQUE: Sequential axial images through the head were obtained without the administration of IV contrast. Comparisons: None FINDINGS: Evaluation is mild limited secondary to patient motion, despite repeat scan. No focal parenchymal lesion or hemorrhage is identified. There is no midline shift or sulcal effacement. No acute vascular territory infarction is identified. Flores-white distinction is preserved. The ventricular system is within normal limits without compression hydrocephalus. The basal cisterns are well maintained. The visualized portions of the paranasal sinuses and mastoid air cells are well- pneumatized. No acute fractures. IMPRESSION: No acute intracranial abnormality. Justicifation of Admission Dx: Justifications for Admission: Justification of Admission Dx: Yes MATHEW PERRY MD Oct 19, 2020 08:35
--- NOTE | 2020-10-19 08:51 | PDOC ---
Infectious Disease Note Vital Sign Vital Signs Vital Signs Date Time Temp Pulse Resp B/P (MAP) Pulse Ox O2 Delivery O2 Flow Rate FiO2 10/19/20 08:16 101 24 118/70 (86) 100 Ventilator 10/19/20 07:48 102.0 102.0 10/18/20 11:31 2.0 Labs Lab Laboratory Tests Test 10/18/20 11:18 10/18/20 15:18 10/18/20 16:00 10/18/20 17:00 Glucose (Fingerstick) 144 mg/dL (70-99) Hemoglobin 7.2 g/dL (13.0-17.5) Hematocrit 22.3 % (39.0-53.0) Prothrombin Time 17.7 SEC (11.7-14.0) Prothromb Time International Ratio 1.5 (0.8-1.1) Activated Partial Thromboplast Time 37 SEC (24-38) Sodium Level 146 mmol/L (136-145) Potassium Level 4.8 mmol/L (3.5-5.1) Chloride Level 106 mmol/L (98-107) Carbon Dioxide Level 26 mmol/L (21-32) Anion Gap 14 (6-14) Blood Urea Nitrogen 40 mg/dL (8-26) Creatinine 2.2 mg/dL (0.7-1.3) Estimated GFR (Cockcroft-Gault) 31.7 BUN/Creatinine Ratio 18 (6-20) Glucose Level 239 mg/dL (70-99) Calcium Level 7.5 mg/dL (8.5-10.1) Magnesium Level 2.5 mg/dL (1.8-2.4) Total Bilirubin 0.8 mg/dL (0.2-1.0) Aspartate Amino Transf (AST/SGOT) 60 U/L (15-37) Alanine Aminotransferase (ALT/SGPT) 54 U/L (16-63) Alkaline Phosphatase 199 U/L (46-116) Troponin I Quantitative 0.017 ng/mL (0.000-0.055) Total Protein 5.2 g/dL (6.4-8.2) Albumin 1.9 g/dL (3.4-5.0) Albumin/Globulin Ratio 0.6 (1.0-1.7) O2 Saturation 94 % (92-99) Arterial Blood pH 7.33 (7.35-7.45) Arterial Blood pCO2 at Patient Temp 54 mmHg (35-46) Arterial Blood pO2 at Patient Temp 84 mmHg (75-108) Arterial Blood HCO3 28 mmol/L (21-28) Arterial Blood Base Excess 1 mmol/L (-3-3) FiO2 100 Test 10/18/20 17:45 10/19/20 03:33 10/19/20 08:05 SARS-CoV-2 Antigen (Rapid) Negative (NEGATIVE) Glucose (Fingerstick) 232 mg/dL (70-99) White Blood Count 25.1 x10^3/uL (4.0-11.0) Red Blood Count 2.57 x10^6/uL (4.30-5.70) Hemoglobin 8.8 g/dL (13.0-17.5) Hematocrit 27.6 % (39.0-53.0) Mean Corpuscular Volume 108 fL (79-100) Mean Corpuscular Hemoglobin 34 pg (25-35) Mean Corpuscular Hemoglobin Concent 32 g/dL (31-37) Red Cell Distribution Width 19.4 % (11.5-14.5) Platelet Count 207 x10^3/uL (140-400) Sodium Level 138 mmol/L (136-145) Potassium Level 5.3 mmol/L (3.5-5.1) Chloride Level 101 mmol/L (98-107) Carbon Dioxide Level 21 mmol/L (21-32) Anion Gap 16 (6-14) Blood Urea Nitrogen 47 mg/dL (8-26) Creatinine 2.7 mg/dL (0.7-1.3) Estimated GFR (Cockcroft-Gault) 25.0 BUN/Creatinine Ratio 17 (6-20) Glucose Level 200 mg/dL (70-99) Calcium Level 7.5 mg/dL (8.5-10.1) Total Bilirubin 1.3 mg/dL (0.2-1.0) Aspartate Amino Transf (AST/SGOT) 67 U/L (15-37) Alanine Aminotransferase (ALT/SGPT) 52 U/L (16-63) Alkaline Phosphatase 154 U/L (46-116) Total Protein 6.1 g/dL (6.4-8.2) Albumin 2.0 g/dL (3.4-5.0) Albumin/Globulin Ratio 0.5 (1.0-1.7) Micro Microbiology 10/18/20 Blood Culture - Preliminary, Resulted NO GROWTH AFTER 1 DAY Objective Assessment pt seen, consult dictated Plan Plan of Care / JAYNE FAUSTIN MD Oct 19, 2020 08:51
--- NOTE | 2020-10-19 08:59 | PN ---
DATE: 10/19/2020 SUBJECTIVE: The patient apparently went into cardiac arrest and rusty brenner was called at around 1500 yesterday. He was shocked twice and received epinephrine twice with return of spontaneous circulation around 1509. He was intubated and was transferred to ICU. He was seen in consultation by the accounts manager as well as the neurologist. When I saw him this morning, he was intubated and mechanically ventilated. He was seen by the accounts manager and apparently, he is unresponsive. He does not open his eyes spontaneously nor does he respond to painful or verbal stimuli. He has no gag reflex and oculogyric reflexes negative. PHYSICAL EXAMINATION: GENERAL: When I examined him this morning, he was pale, but no jaundice, cyanosis or thyromegaly. No jugular venous distention. No lower limb edema. VITAL SIGNS: His heart rate was 111, blood pressure was 119/65, temperature was 102, respiratory rate was 24, and oxygen saturation was 100% on FiO2 of 100%. HEAD, EYES, EARS, NOSE AND THROAT: Showed he is normocephalic, atraumatic. He has orotracheal and orogastric tube in place. NECK: Supple. HEART: Showed normal first and second heart sounds. No gallop, rub or murmur. CHEST: Showed central trachea, equal bilateral chest expansion, air entry, vesicular breath sounds. I could not appreciate any crepitation or rhonchi. ABDOMEN: Distended, soft. His intake over the last 24 hours was 200, output was 300. Apparently, about 2 liters of fluid were drained from his NG tube. LABORATORY DATA: His lab work after the code showed his hemoglobin last night was 7.2, hematocrit 22.3. His chemistry showed a serum sodium 146, potassium 4.8, chloride 106, bicarbonate 26, anion gap of 14, BUN 40, creatinine 2.2, estimated GFR was 31 mL per minute. His glucose was 239, calcium was 7.5, magnesium 2.5. Total bilirubin is normal. AST, ALT, alkaline phosphatase slightly elevated. His total protein 5.2, albumin was 1.9. His prothrombin time was 17.7, INR 1.5, aPTT was 37. His SARS-CoV2 antigen rapid test was negative. ASSESSMENT AND PLAN: 1. Acute respiratory failure secondary to cardiac arrest. 2. Cardiac arrest. Initially, the patient was found to be in asystole. Apparently, he went into ventricular fibrillation, was shocked twice and started on amiodarone. 3. Fever, likely due to pneumonia. He has right lower lobe infiltrate and he has also his common bile duct dilated and I did start him on Zosyn to start with. 4. Chronic alcoholic hepatitis. 5. Metabolic toxic encephalopathy. 6. Crohn's disease. 7. Type 2 diabetes mellitus. 8. Hypertension. 9. Hyperlipidemia. 10. Chronic obstructive pulmonary disease. 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 His chest x-ray showed right basilar consolidation concerning for an infectious inflammatory process, mild left basilar opacities, could represent subsegmental atelectasis or additional infection. His chest x-ray after intubation showed that endotracheal tube tip approximately 3 cm above the sukhwinder, enteric tube with tip in the left upper quadrant, likely within the stomach. The cardiomediastinal silhouette and pulmonary vessels are within normal limits, strandy opacities of the lung bases bilaterally, but no pleural effusion. He had had a CT scan of the head, which basically showed no focal parenchymal lesion or hemorrhage identified. There is no midline shift or sulcal effacement, no acute vascular territory infarction identified. Flores white distinction is present. The ventricular system is within normal limits without compression hydrocephalus. The basal cisterns are well maintained. The visualized portions of the paranasal sinuses and mastoid air cells are well pneumatized. No acute fracture. The plan is obviously to continue with mechanical ventilation. Continue with IV antibiotic in the form of vancomycin and Zosyn. Apparently, he has had seizures for which he was started on Keppra and meanwhile, continue with Levophed to support his blood pressure. Continue to monitor his blood sugar and adjust insulin as needed. His overall prognosis is very poor. ABEL PAULSON MD DR: ZULMA/kwaku JOB#: [id number] / [id number]
--- NOTE | 2020-10-19 09:19 | CONS ---
DATE OF CONSULTATION: 10/19/2020 REQUESTING PHYSICIAN: Dr. Arianna Kevin. REASON FOR CONSULTATION: Possible sepsis. HISTORY OF PRESENT ILLNESS: This is a 50-year-old gentleman who was transferred from [facility]. The patient presented there with a change in mental status. The patient was initially diagnosed with acute kidney injury and lactic acidosis, which improved. The patient also had low hemoglobin. The patient was transferred here for further management. Also CT of the abdomen showed possible cholecystitis. The patient here yesterday was coded and CPR was done. The patient was found to be in ventricular fibrillation. The patient was shocked. The patient is currently orally intubated on a ventilator. No sedation and he is not responding. The patient also had now acute kidney injury, fever up to 102.9, white count up to 25,000 and the patient is on Zosyn and vancomycin. The patient is not able to provide any information. Information was obtained through chart review, discussing with the patient's RN as well as discussing with Dr. Kevin. No nausea, vomiting, diarrhea noted. The patient is alcoholic and functional paraplegic. PAST MEDICAL HISTORY: Positive for Crohn's disease, diabetes mellitus, hypertension, hyperlipidemia, COPD, benign prostatic hypertrophy, chronic alcoholism as well as functional paraplegia. SOCIAL HISTORY: Positive for alcohol use. Positive for smoking. No drug use. ALLERGIES: LISTED ALLERGIC TO AMITRIPTYLINE, DIVALPROEX, LISINOPRIL AND TOPIRAMATE. CURRENT MEDICATIONS: Reviewed. REVIEW OF SYSTEMS: As per HPI, all other systems reviewed are negative. PHYSICAL EXAMINATION: GENERAL: Orally intubated gentleman on a ventilator. VITAL SIGNS: Temperature 102.0 with a T-max 102.9, pulse 101, respirations 21, blood pressure 118/70. HEENT: Both pupils are round and reacting. No conjunctival lesion. Mouth orally intubated. NECK: Supple, no JVP, no lymphadenopathy. LUNGS: Decreased breath sounds. HEART: S1, S2 regular. No gallop or murmur. ABDOMEN: Soft, nontender, no organomegaly. EXTREMITIES: No edema or cyanosis. SKIN: Unremarkable. NEUROLOGIC: The patient is currently intubated on a ventilator. There is no neurologic response. I believe he has not been on any sedation. LABORATORY DATA: White count is 25,000, platelets are 207. BUN and creatinine is 47 and 2.7. Urinalysis unremarkable. COVID rapid was negative. Blood culture is negative. CT of the head, no acute change. Chest x-ray unremarkable. Ultrasound of the abdomen showed hepatomegaly and hepatic steatosis, gallbladder sludge, mildly dilated common bile duct. IMPRESSION: 1. Fever. 2. Leukocytosis. 3. Cardiopulmonary arrest. 4. Encephalopathy. 5. Respiratory failure. 6. Crohn's disease. 7. Alcoholism. 8. Diabetes. 9. Hypertension. 10. Chronic obstructive pulmonary disease. 11. Suspected aspiration pneumonia. RECOMMENDATIONS: Continue Zosyn, discontinue vancomycin. Supportive care. We will follow the cultures and continue to adjust. Thank you very much, Dr. Kevin, for giving me the opportunity to participate in this patient's care. Discussion with Dr. Kevin done. JAYNE FAUSTIN MD DR: GORDON/kwaku JOB#: [id number] / [id number]
[2020-10-19 09:33] LABS: FIO2 ABG 100% VENT + 7 PEEP
--- NOTE | 2020-10-19 09:50 | PDOC ---
Date of Service: DATE: 10/19/20 TIME: 09:41 Objective: Objective: D/w nurse - no gag reflex or cough - neurology involved. Vital Signs: Vital Signs Date Time Temp Pulse Resp B/P (MAP) Pulse Ox O2 Delivery O2 Flow Rate FiO2 10/19/20 09:20 100 Ventilator 10/19/20 08:57 101 24 123/74 (90) 10/19/20 07:48 102.0 102.0 10/18/20 11:31 2.0 Labs: Laboratory Tests Test 10/18/20 11:18 10/18/20 15:18 10/18/20 16:00 10/18/20 17:00 Glucose (Fingerstick) 144 mg/dL Hemoglobin 7.2 g/dL Hematocrit 22.3 % Prothrombin Time 17.7 SEC Prothromb Time International Ratio 1.5 Activated Partial Thromboplast Time 37 SEC Sodium Level 146 mmol/L Potassium Level 4.8 mmol/L Chloride Level 106 mmol/L Carbon Dioxide Level 26 mmol/L Anion Gap 14 Blood Urea Nitrogen 40 mg/dL Creatinine 2.2 mg/dL Estimated GFR (Cockcroft-Gault) 31.7 BUN/Creatinine Ratio 18 Glucose Level 239 mg/dL Calcium Level 7.5 mg/dL Magnesium Level 2.5 mg/dL Total Bilirubin 0.8 mg/dL Aspartate Amino Transf (AST/SGOT) 60 U/L Alanine Aminotransferase (ALT/SGPT) 54 U/L Alkaline Phosphatase 199 U/L Troponin I Quantitative 0.017 ng/mL Total Protein 5.2 g/dL Albumin 1.9 g/dL Albumin/Globulin Ratio 0.6 O2 Saturation 94 % Arterial Blood pH 7.33 Arterial Blood pCO2 at Patient Temp 54 mmHg Arterial Blood pO2 at Patient Temp 84 mmHg Arterial Blood HCO3 28 mmol/L Arterial Blood Base Excess 1 mmol/L FiO2 100 Test 10/18/20 17:45 10/19/20 03:33 10/19/20 07:45 10/19/20 08:05 SARS-CoV-2 Antigen (Rapid) Negative Glucose (Fingerstick) 232 mg/dL O2 Saturation 99 % Arterial Blood pH 7.43 Arterial Blood pH (Temp corrected) 7.40 Arterial Blood pCO2 at Patient Temp 34 mmHg Arterial Blood pCO2 (Temp correct) 37 mmHg Arterial Blood pO2 at Patient Temp 329 mmHg Arterial Blood pO2 (Temp corrected) 339 mmHg Arterial Blood HCO3 22 mmol/L Arterial Blood Base Excess -2 mmol/L FiO2 100% vent + 7 peep White Blood Count 25.1 x10^3/uL Red Blood Count 2.57 x10^6/uL Hemoglobin 8.8 g/dL Hematocrit 27.6 % Mean Corpuscular Volume 108 fL Mean Corpuscular Hemoglobin 34 pg Mean Corpuscular Hemoglobin Concent 32 g/dL Red Cell Distribution Width 19.4 % Platelet Count 207 x10^3/uL Sodium Level 138 mmol/L Potassium Level 5.3 mmol/L Chloride Level 101 mmol/L Carbon Dioxide Level 21 mmol/L Anion Gap 16 Blood Urea Nitrogen 47 mg/dL Creatinine 2.7 mg/dL Estimated GFR (Cockcroft-Gault) 25.0 BUN/Creatinine Ratio 17 Glucose Level 200 mg/dL Calcium Level 7.5 mg/dL Total Bilirubin 1.3 mg/dL Aspartate Amino Transf (AST/SGOT) 67 U/L Alanine Aminotransferase (ALT/SGPT) 52 U/L Alkaline Phosphatase 154 U/L Total Protein 6.1 g/dL Albumin 2.0 g/dL Albumin/Globulin Ratio 0.5 PE: GEN: intubated in ICU/COVID isolation - visual exam LUNGS: vent HEART: mildly tachycardic ABD: non-distended NEURO/PSYCH: unresponsive A/P: S/p arrest Fever, resp failure, leukocytosis, MATT Macrocytic anemia, alcoholic hepatitis (better), mild coagulopathy Hepatomegaly, hepatic steatosis, GB sludge, CBD 6mm H/o Crohn's Rapid COVID negative 10/18/20 -- Unresponsive. Follow neurology guidance/await apnea test. Continue PPI. Justicifation of Admission Dx: Justifications for Admission: Justification of Admission Dx: Yes WISAM YANES Oct 19, 2020 09:50
--- NOTE | 2020-10-19 10:41 | NUR ---
Patient took breaths during apnea test. Updated Dr. Reich, patient's mother, and [place]. Will continue monitoring and caring for patient.
[2020-10-19] MEDS: levETIRAcetam 500 MG in IV DEXTROSE 5% 100ML 100 ML IV SCH ×2 (10:49→21:13)
--- NOTE | 2020-10-19 10:59 | PDOC2 ---
ALTHEA SCHMID COLD WORKING SUPERVISOR 10/19/20 1059: CARDIAC CONSULT DATE OF CONSULT Date of Consult DATE: 10/19/20 TIME: 10:26 REASON FOR CONSULT Reason for Consult: cardiac arrest REFERRING PHYSICIAN Referring Physician: Dr. Xavier SOURCE Source: Chart review HISTORY OF PRESENT ILLNESS HISTORY OF PRESENT ILLNESS This is a 50 yo male who initially presented to [facility] secondary to altered mental status. Was noted with MATT, anemia. LFTS mildly elevated, ammonia level WNL. CT head without acute findings. Had coffee ground emesis. Was transfused and started on IV Protonix. CT scan of the abdomen and pelvis noted with dilated, fluid filled ascending colon and distended gallbladder. Patient was transferred to [facility] for further evaluation and treatment. Yesterday afternoon, patient had cardiac arrest and CODE BLUE was called. Was initially noted in asystole, CPR was initiated. He then went into ventricular fibrillation and was shocked twice prior to ROSC. Was intubated/sedated and transferred to the ICU. Presently SR. PAST MEDICAL HISTORY Cardiovascular: HTN, Hyperlipidemia Pulmonary: COPD GI: Other (Crohn's Disease ) Hepatobiliary: Other (alcoholic hepatitis ) Psych: Addictions (ETOH), Depression Renal/: Benign prostatic enlarg. Endocrine: Diabetes PAST SURGICAL HISTORY Past Surgical History: Other, No pertinent history FAMILY HISTORY Family History: Heart Disease SOCIAL HISTORY Smoke: Quit ALCOHOL: heavy Drugs: None Lives: Alone CURRENT MEDICATIONS CURRENT MEDICATIONS Current Medications Medications (Trade) Dose Ordered Sig/Deandra Route PRN Reason Start Time Stop Time Status Last Admin Dose Admin Norepinephrine Bitartrate 8 mg/ Dextrose 258 ml @ 16.002 mls/ hr CONT PRN IV PER PROTOCOL 10/18/20 16:00 10/19/20 07:58 Vancomycin HCl (Vanco Per Pharmacy) 1 each PRN DAILY PRN MC SEE COMMENTS 10/18/20 16:30 10/19/20 09:02 DC 10/18/20 20:04 Thiamine HCl 100 mg/Folic Acid 1 mg/Sodium Chloride 1,001.2 ml @ 990.198 mls/hr 1X ONCE IV 10/18/20 17:00 10/18/20 18:00 DC 10/18/20 17:55 Vancomycin HCl 2 gm/Sodium Chloride 500 ml @ 250 mls/hr Q24H IV 10/18/20 18:00 10/18/20 21:00 DC 10/18/20 17:57 Amiodarone HCl 450 mg/Dextrose 259 ml @ 33 mls/hr CONT PRN IV SEE I/O RECORD 10/18/20 17:00 10/19/20 03:32 DC 10/19/20 03:31 Levetiracetam 500 mg/Dextrose 105 ml @ 420 mls/hr Q12HR IV 10/18/20 18:28 10/18/20 18:28 ALLERGIES ALLERGIES: Coded Allergies: lisinopril (Verified Allergy, Severe, 10/16/20) amitriptyline (Verified Allergy, Intermediate, 10/16/20) divalproex sodium (Verified Allergy, Intermediate, 10/16/20) topiramate (Verified Allergy, Intermediate, 10/16/20) ROS Review of System unobtainable PHYSICAL EXAM General: No acute distress HEENT: Atraumatic Lungs: Other (mechanical vent ) Heart: Regular rate (SR/ST with PVC's ) Abdomen: Soft Extremities: No edema Skin: No significant lesion Neuro: Other (non-responsive, not on sedation ) MUSCULOSKELETAL: No deformity VITALS/I&O VITALS/I&O: Vital Signs Date Time Temp Pulse Resp B/P (MAP) Pulse Ox O2 Delivery O2 Flow Rate FiO2 10/19/20 10:10 104 24 129/70 (89) 100 Ventilator 10/19/20 07:48 102.0 102.0 10/18/20 11:31 2.0 I & O 0 10/18/20 10/18/20 10/19/20 15:00 23:00 07:00 Intake Total 150 ml 3603 ml Output Total 225 ml 35 ml Balance -75 ml 3568 ml LABS Lab: Laboratory Tests Test 10/18/20 11:18 10/18/20 15:18 10/18/20 16:00 10/18/20 17:00 Glucose (Fingerstick) 144 mg/dL (70-99) H Hemoglobin 7.2 g/dL (13.0-17.5) L Hematocrit 22.3 % (39.0-53.0) L Prothrombin Time 17.7 SEC (11.7-14.0) H Prothrombin Time INR 1.5 (0.8-1.1) H Activated Partial Thromboplast Time 37 SEC (24-38) Sodium Level 146 mmol/L (136-145) H Potassium Level 4.8 mmol/L (3.5-5.1) Chloride Level 106 mmol/L (98-107) Carbon Dioxide Level 26 mmol/L (21-32) Anion Gap 14 (6-14) Blood Urea Nitrogen 40 mg/dL (8-26) H Creatinine 2.2 mg/dL (0.7-1.3) H Estimated GFR (Cockcroft-Gault) 31.7 BUN/Creatinine Ratio 18 (6-20) Glucose Level 239 mg/dL (70-99) H Calcium Level 7.5 mg/dL (8.5-10.1) L Magnesium Level 2.5 mg/dL (1.8-2.4) H Total Bilirubin 0.8 mg/dL (0.2-1.0) Aspartate Amino Transferase (AST) 60 U/L (15-37) H Alanine Aminotransferase (ALT) 54 U/L (16-63) Alkaline Phosphatase 199 U/L (46-116) H Troponin I Quantitative 0.017 ng/mL (0.000-0.055) Total Protein 5.2 g/dL (6.4-8.2) L Albumin 1.9 g/dL (3.4-5.0) L Albumin/Globulin Ratio 0.6 (1.0-1.7) L O2 Saturation 94 % (92-99) Arterial Blood pH 7.33 (7.35-7.45) L Arterial Blood pCO2 at Patient Temp 54 mmHg (35-46) H Arterial Blood pO2 at Patient Temp 84 mmHg (75-108) Arterial Blood HCO3 28 mmol/L (21-28) Arterial Blood Base Excess 1 mmol/L (-3-3) FiO2 100 Test 10/18/20 17:45 10/19/20 03:33 10/19/20 07:45 10/19/20 08:05 SARS-CoV-2 Antigen (Rapid) Negative (NEGATIVE) Glucose (Fingerstick) 232 mg/dL (70-99) H O2 Saturation 99 % (92-99) Arterial Blood pH 7.43 (7.35-7.45) Arterial Blood pH (Temp corrected) 7.40 Arterial Blood pCO2 at Patient Temp 34 mmHg (35-46) L Arterial Blood pCO2 (Temp correct) 37 mmHg Arterial Blood pO2 at Patient Temp 329 mmHg (75-108) H Arterial Blood pO2 (Temp corrected) 339 mmHg Arterial Blood HCO3 22 mmol/L (21-28) Arterial Blood Base Excess -2 mmol/L (-3-3) FiO2 100% vent + 7 peep White Blood Count 25.1 x10^3/uL (4.0-11.0) H Red Blood Count 2.57 x10^6/uL (4.30-5.70) L Hemoglobin 8.8 g/dL (13.0-17.5) L Hematocrit 27.6 % (39.0-53.0) L Mean Corpuscular Volume 108 fL (79-100) H Mean Corpuscular Hemoglobin 34 pg (25-35) Mean Corpuscular Hemoglobin Concent 32 g/dL (31-37) Red Cell Distribution Width 19.4 % (11.5-14.5) H Platelet Count 207 x10^3/uL (140-400) Sodium Level 138 mmol/L (136-145) Potassium Level 5.3 mmol/L (3.5-5.1) H Chloride Level 101 mmol/L (98-107) Carbon Dioxide Level 21 mmol/L (21-32) Anion Gap 16 (6-14) H Blood Urea Nitrogen 47 mg/dL (8-26) H Creatinine 2.7 mg/dL (0.7-1.3) H Estimated GFR (Cockcroft-Gault) 25.0 BUN/Creatinine Ratio 17 (6-20) Glucose Level 200 mg/dL (70-99) H Calcium Level 7.5 mg/dL (8.5-10.1) L Total Bilirubin 1.3 mg/dL (0.2-1.0) H Aspartate Amino Transferase (AST) 67 U/L (15-37) H Alanine Aminotransferase (ALT) 52 U/L (16-63) Alkaline Phosphatase 154 U/L (46-116) H Total Protein 6.1 g/dL (6.4-8.2) L Albumin 2.0 g/dL (3.4-5.0) L Albumin/Globulin Ratio 0.5 (1.0-1.7) L Laboratory Tests 10/18/20 15:18 10/19/20 08:05 Laboratory Tests 10/18/20 16:00 10/19/20 08:05 ASSESSMENT/PLAN ASSESSMENT/PLAN 1. S/p cardiac arrest; initially asystole, then ventricular fibrillation. Defibrillated x2 prior to ROSC. Amiodarone initiated. Now maintaining SR 2. Acute respiratory failure in setting of above; s/p intubation, mechanical ventilation 3. Leukocytosis, fevers, probable sepsis. requiring pressor support 4. Metabolic, ? anoxic encephalopathy; not on sedation, unresponsive 5. Anemia, coffee ground emesis 6. ? Aspiration PNA 7. MATT, hyperkalemia 8. H/o Crohn' s Disease 9. Chronic alcoholic hepatitis 10. H/o hypertension 11. Hyperlipidemia 12. PUI; rapid negative. PCR pending Recommendations Trend troponin No ASA, OAC due to anemia, coffee ground emesis Discontinue amiodarone due to liver disease (initial rhythm asystole) Monitor tele. PPI EEG today Ongoing support Prognosis poor KIN WOODS MD 10/20/20 0642: CARDIAC CONSULT ASSESSMENT/PLAN ASSESSMENT/PLAN Late entry for 10/19/20 Pt. seen and examined. Agree with above PRODUCTION CELL LEADER note. ALTHEA SCHMID APRN Oct 19, 2020 10:59 KIN WOODS MD Oct 20, 2020 06:42
[2020-10-19 11:14] LABS: CHOLESTEROL/HDL RATIO 3.2
--- NOTE | 2020-10-19 11:27 | PDOC ---
PULMONARY PROGRESS NOTES DATE: 10/19/20 TIME: 11:27 Subjective S/P cardiac arrest PEA , unknown down time on 10/18/20 subsequently intubated and transferred to ICU on levophed No cough, no gag, no corneal, responded apena test fever overnight Vitals Vital Signs Date Time Temp Pulse Resp B/P (MAP) Pulse Ox O2 Delivery O2 Flow Rate FiO2 10/19/20 11:20 110 24 110/70 (83) 100 Ventilator 10/19/20 07:48 102.0 102.0 10/18/20 11:31 2.0 Comments PT. seen during , visual exam preformed RRR Intubated no edema No accessory Muscle use Labs Laboratory Tests Test 10/17/20 11:52 10/17/20 15:50 10/17/20 18:29 10/18/20 00:00 Glucose (Fingerstick) 159 mg/dL (70-99) 163 mg/dL (70-99) 146 mg/dL (70-99) Hemoglobin 7.3 g/dL (13.0-17.5) Hematocrit 22.1 % (39.0-53.0) Sodium Level 146 mmol/L (136-145) Potassium Level 4.5 mmol/L (3.5-5.1) Chloride Level 110 mmol/L (98-107) Carbon Dioxide Level 28 mmol/L (21-32) Anion Gap 8 (6-14) Blood Urea Nitrogen 42 mg/dL (8-26) Creatinine 1.1 mg/dL (0.7-1.3) Estimated GFR (Cockcroft-Gault) 70.6 Glucose Level 147 mg/dL (70-99) Calcium Level 8.5 mg/dL (8.5-10.1) Test 10/18/20 01:08 10/18/20 02:00 10/18/20 11:18 10/18/20 15:18 Urine Collection Type Unknown Urine Color [place] Urine Clarity Clear Urine pH 6.0 (<5.0-8.0) Urine Specific [place] 1.025 (1.000-1.030) Urine Protein Negative mg/dL (NEG-TRACE) Urine Glucose (UA) Negative mg/dL (NEG) Urine Ketones (Stick) Trace mg/dL (NEG) Urine Blood Negative (NEG) Urine Nitrite Negative (NEG) Urine Bilirubin Moderate (NEG) Urine Urobilinogen Dipstick 4.0 mg/dL (0.2 mg/dL) Urine Leukocyte Esterase Negative (NEG) Urine RBC 1-2 /HPF (0-2) Urine WBC 1-4 /HPF (0-4) Urine Squamous Epithelial Cells Few /LPF Urine Bacteria Few /HPF (0-FEW) Urine Mucus Slight /LPF White Blood Count 5.2 x10^3/uL (4.0-11.0) Red Blood Count 1.99 x10^6/uL (4.30-5.70) Hemoglobin 7.1 g/dL (13.0-17.5) 7.2 g/dL (13.0-17.5) Hematocrit 21.2 % (39.0-53.0) 22.3 % (39.0-53.0) Mean Corpuscular Volume 107 fL (79-100) Mean Corpuscular Hemoglobin 36 pg (25-35) Mean Corpuscular Hemoglobin Concent 33 g/dL (31-37) Red Cell Distribution Width 20.6 % (11.5-14.5) Platelet Count 149 x10^3/uL (140-400) Neutrophils (%) (Auto) 79 % (31-73) Lymphocytes (%) (Auto) 13 % (24-48) Monocytes (%) (Auto) 6 % (0-9) Eosinophils (%) (Auto) 2 % (0-3) Basophils (%) (Auto) 0 % (0-3) Neutrophils # (Auto) 4.1 x10^3/uL (1.8-7.7) Lymphocytes # (Auto) 0.7 x10^3/uL (1.0-4.8) Monocytes # (Auto) 0.3 x10^3/uL (0.0-1.1) Eosinophils # (Auto) 0.1 x10^3/uL (0.0-0.7) Basophils # (Auto) 0.0 x10^3/uL (0.0-0.2) Sodium Level 146 mmol/L (136-145) Potassium Level 4.1 mmol/L (3.5-5.1) Chloride Level 108 mmol/L (98-107) Carbon Dioxide Level 29 mmol/L (21-32) Anion Gap 9 (6-14) Blood Urea Nitrogen 38 mg/dL (8-26) Creatinine 1.1 mg/dL (0.7-1.3) Estimated GFR (Cockcroft-Gault) 70.6 BUN/Creatinine Ratio 35 (6-20) Glucose Level 151 mg/dL (70-99) Calcium Level 8.4 mg/dL (8.5-10.1) Total Bilirubin 0.6 mg/dL (0.2-1.0) Aspartate Amino Transf (AST/SGOT) 51 U/L (15-37) Alanine Aminotransferase (ALT/SGPT) 67 U/L (16-63) Alkaline Phosphatase 163 U/L (46-116) Ammonia 44 mcmol/L (11-34) Total Protein 5.7 g/dL (6.4-8.2) Albumin 2.2 g/dL (3.4-5.0) Albumin/Globulin Ratio 0.6 (1.0-1.7) Glucose (Fingerstick) 144 mg/dL (70-99) Test 10/18/20 16:00 10/18/20 17:00 10/18/20 17:45 10/19/20 03:33 Prothrombin Time 17.7 SEC (11.7-14.0) Prothromb Time International Ratio 1.5 (0.8-1.1) Activated Partial Thromboplast Time 37 SEC (24-38) Sodium Level 146 mmol/L (136-145) Potassium Level 4.8 mmol/L (3.5-5.1) Chloride Level 106 mmol/L (98-107) Carbon Dioxide Level 26 mmol/L (21-32) Anion Gap 14 (6-14) Blood Urea Nitrogen 40 mg/dL (8-26) Creatinine 2.2 mg/dL (0.7-1.3) Estimated GFR (Cockcroft-Gault) 31.7 BUN/Creatinine Ratio 18 (6-20) Glucose Level 239 mg/dL (70-99) Calcium Level 7.5 mg/dL (8.5-10.1) Magnesium Level 2.5 mg/dL (1.8-2.4) Total Bilirubin 0.8 mg/dL (0.2-1.0) Aspartate Amino Transf (AST/SGOT) 60 U/L (15-37) Alanine Aminotransferase (ALT/SGPT) 54 U/L (16-63) Alkaline Phosphatase 199 U/L (46-116) Troponin I Quantitative 0.017 ng/mL (0.000-0.055) Total Protein 5.2 g/dL (6.4-8.2) Albumin 1.9 g/dL (3.4-5.0) Albumin/Globulin Ratio 0.6 (1.0-1.7) O2 Saturation 94 % (92-99) Arterial Blood pH 7.33 (7.35-7.45) Arterial Blood pCO2 at Patient Temp 54 mmHg (35-46) Arterial Blood pO2 at Patient Temp 84 mmHg (75-108) Arterial Blood HCO3 28 mmol/L (21-28) Arterial Blood Base Excess 1 mmol/L (-3-3) FiO2 100 SARS-CoV-2 Antigen (Rapid) Negative (NEGATIVE) Glucose (Fingerstick) 232 mg/dL (70-99) Test 10/19/20 07:45 10/19/20 08:05 O2 Saturation 99 % (92-99) Arterial Blood pH 7.43 (7.35-7.45) Arterial Blood pH (Temp corrected) 7.40 Arterial Blood pCO2 at Patient Temp 34 mmHg (35-46) Arterial Blood pCO2 (Temp correct) 37 mmHg Arterial Blood pO2 at Patient Temp 329 mmHg (75-108) Arterial Blood pO2 (Temp corrected) 339 mmHg Arterial Blood HCO3 22 mmol/L (21-28) Arterial Blood Base Excess -2 mmol/L (-3-3) FiO2 100% vent + 7 peep White Blood Count 25.1 x10^3/uL (4.0-11.0) Red Blood Count 2.57 x10^6/uL (4.30-5.70) Hemoglobin 8.8 g/dL (13.0-17.5) Hematocrit 27.6 % (39.0-53.0) Mean Corpuscular Volume 108 fL (79-100) Mean Corpuscular Hemoglobin 34 pg (25-35) Mean Corpuscular Hemoglobin Concent 32 g/dL (31-37) Red Cell Distribution Width 19.4 % (11.5-14.5) Platelet Count 207 x10^3/uL (140-400) Sodium Level 138 mmol/L (136-145) Potassium Level 5.3 mmol/L (3.5-5.1) Chloride Level 101 mmol/L (98-107) Carbon Dioxide Level 21 mmol/L (21-32) Anion Gap 16 (6-14) Blood Urea Nitrogen 47 mg/dL (8-26) Creatinine 2.7 mg/dL (0.7-1.3) Estimated GFR (Cockcroft-Gault) 25.0 BUN/Creatinine Ratio 17 (6-20) Glucose Level 200 mg/dL (70-99) Calcium Level 7.5 mg/dL (8.5-10.1) Total Bilirubin 1.3 mg/dL (0.2-1.0) Aspartate Amino Transf (AST/SGOT) 67 U/L (15-37) Alanine Aminotransferase (ALT/SGPT) 52 U/L (16-63) Alkaline Phosphatase 154 U/L (46-116) Troponin I Quantitative 0.089 ng/mL (0.000-0.055) Total Protein 6.1 g/dL (6.4-8.2) Albumin 2.0 g/dL (3.4-5.0) Albumin/Globulin Ratio 0.5 (1.0-1.7) Triglycerides Level 80 mg/dL (0-150) Cholesterol Level 71 mg/dL (0-200) LDL Cholesterol, Calculated 33 mg/dL (0-100) VLDL Cholesterol, Calculated 16 mg/dL (0-40) Non-HDL Cholesterol Calculated 49 mg/dL (0-129) HDL Cholesterol 22 mg/dL (40-60) Cholesterol/HDL Ratio 3.2 Laboratory Tests Test 10/18/20 15:18 10/18/20 16:00 10/18/20 17:00 10/18/20 17:45 Hemoglobin 7.2 g/dL (13.0-17.5) Hematocrit 22.3 % (39.0-53.0) Prothrombin Time 17.7 SEC (11.7-14.0) Prothromb Time International Ratio 1.5 (0.8-1.1) Activated Partial Thromboplast Time 37 SEC (24-38) Sodium Level 146 mmol/L (136-145) Potassium Level 4.8 mmol/L (3.5-5.1) Chloride Level 106 mmol/L (98-107) Carbon Dioxide Level 26 mmol/L (21-32) Anion Gap 14 (6-14) Blood Urea Nitrogen 40 mg/dL (8-26) Creatinine 2.2 mg/dL (0.7-1.3) Estimated GFR (Cockcroft-Gault) 31.7 BUN/Creatinine Ratio 18 (6-20) Glucose Level 239 mg/dL (70-99) Calcium Level 7.5 mg/dL (8.5-10.1) Magnesium Level 2.5 mg/dL (1.8-2.4) Total Bilirubin 0.8 mg/dL (0.2-1.0) Aspartate Amino Transf (AST/SGOT) 60 U/L (15-37) Alanine Aminotransferase (ALT/SGPT) 54 U/L (16-63) Alkaline Phosphatase 199 U/L (46-116) Troponin I Quantitative 0.017 ng/mL (0.000-0.055) Total Protein 5.2 g/dL (6.4-8.2) Albumin 1.9 g/dL (3.4-5.0) Albumin/Globulin Ratio 0.6 (1.0-1.7) O2 Saturation 94 % (92-99) Arterial Blood pH 7.33 (7.35-7.45) Arterial Blood pCO2 at Patient Temp 54 mmHg (35-46) Arterial Blood pO2 at Patient Temp 84 mmHg (75-108) Arterial Blood HCO3 28 mmol/L (21-28) Arterial Blood Base Excess 1 mmol/L (-3-3) FiO2 100 SARS-CoV-2 Antigen (Rapid) Negative (NEGATIVE) Test 10/19/20 03:33 10/19/20 07:45 10/19/20 08:05 Glucose (Fingerstick) 232 mg/dL (70-99) O2 Saturation 99 % (92-99) Arterial Blood pH 7.43 (7.35-7.45) Arterial Blood pH (Temp corrected) 7.40 Arterial Blood pCO2 at Patient Temp 34 mmHg (35-46) Arterial Blood pCO2 (Temp correct) 37 mmHg Arterial Blood pO2 at Patient Temp 329 mmHg (75-108) Arterial Blood pO2 (Temp corrected) 339 mmHg Arterial Blood HCO3 22 mmol/L (21-28) Arterial Blood Base Excess -2 mmol/L (-3-3) FiO2 100% vent + 7 peep White Blood Count 25.1 x10^3/uL (4.0-11.0) Red Blood Count 2.57 x10^6/uL (4.30-5.70) Hemoglobin 8.8 g/dL (13.0-17.5) Hematocrit 27.6 % (39.0-53.0) Mean Corpuscular Volume 108 fL (79-100) Mean Corpuscular Hemoglobin 34 pg (25-35) Mean Corpuscular Hemoglobin Concent 32 g/dL (31-37) Red Cell Distribution Width 19.4 % (11.5-14.5) Platelet Count 207 x10^3/uL (140-400) Sodium Level 138 mmol/L (136-145) Potassium Level 5.3 mmol/L (3.5-5.1) Chloride Level 101 mmol/L (98-107) Carbon Dioxide Level 21 mmol/L (21-32) Anion Gap 16 (6-14) Blood Urea Nitrogen 47 mg/dL (8-26) Creatinine 2.7 mg/dL (0.7-1.3) Estimated GFR (Cockcroft-Gault) 25.0 BUN/Creatinine Ratio 17 (6-20) Glucose Level 200 mg/dL (70-99) Calcium Level 7.5 mg/dL (8.5-10.1) Total Bilirubin 1.3 mg/dL (0.2-1.0) Aspartate Amino Transf (AST/SGOT) 67 U/L (15-37) Alanine Aminotransferase (ALT/SGPT) 52 U/L (16-63) Alkaline Phosphatase 154 U/L (46-116) Troponin I Quantitative 0.089 ng/mL (0.000-0.055) Total Protein 6.1 g/dL (6.4-8.2) Albumin 2.0 g/dL (3.4-5.0) Albumin/Globulin Ratio 0.5 (1.0-1.7) Triglycerides Level 80 mg/dL (0-150) Cholesterol Level 71 mg/dL (0-200) LDL Cholesterol, Calculated 33 mg/dL (0-100) VLDL Cholesterol, Calculated 16 mg/dL (0-40) Non-HDL Cholesterol Calculated 49 mg/dL (0-129) HDL Cholesterol 22 mg/dL (40-60) Cholesterol/HDL Ratio 3.2 Medications Active Scripts Medications Dose Route/Sig Max Daily Dose Days Date Category Vitamin B-1 (Thiamine Hcl) 100 Mg Tablet 200 Mg PO DAILY 10/17/20 Reported Folic Acid 0.8 Mg Tablet 20 Mg PO DAILY 10/17/20 Reported B-12 (Cyanocobalamin (Vitamin B-12)) 1,000 Mcg Tablet.er 1 Tab PO DAILY 30 10/17/20 Reported Capsaicin 60 Gm Cream..g. 60 Gm TP PRN QID PRN 10/17/20 Reported Metformin Hcl 500 Mg Tablet 500 Mg PO BIDWMEALS 10/17/20 Reported Anecream (Lidocaine) 5 Gm Cream..g. 1 [place] TP PRN QID PRN 30 10/17/20 Reported Symbicort 160-4.5 Mcg Inhaler (Budesonide/Formoterol Fumarate) 10.2 Gm Hfa.aer.ad 2 Puff IH BID 10/17/20 Reported Potassium Chloride 20 Meq Tablet.er 20 Meq PO DAILY 10/17/20 Reported Cymbalta (Duloxetine Hcl) 60 Mg Capsule.dr 90 Mg PO DAILY 10/17/20 Reported Gabapentin 600 Mg Tablet 600 Mg PO TID 10/17/20 Reported Aspirin 81 Mg Tab.chew 1 Tab PO DAILY 10/17/20 Reported Cozaar (Losartan Potassium) 25 Mg Tablet 25 Mg PO DAILY 10/17/20 Reported Viagra (Sildenafil Citrate) 50 Mg Tablet 50 Mg PO ONCE PRN 10/17/20 Reported Crestor (Rosuvastatin Calcium) 5 Mg Tablet 2.5 Mg PO HS 10/17/20 Reported Flomax (Tamsulosin Hcl) 0.4 Mg Cap.er.24h 1 Cap PO DAILY 10/17/20 Reported Proair Hfa (Albuterol Sulfate) 8.5 Gm Hfa.aer.ad 2 Puff IH PRN Q4-6HRS PRN 21 10/17/20 Reported Spiriva (Tiotropium [place]) 18 Mcg Cap.w.dev 1 Cap IH DAILY 10/17/20 Reported Impression . IMPRESSION: 1. Acute respiratory failure secondary to cardiac arrest. 2. Cardiac arrest. Initially, the patient found to be in asystole, then went into ventricular fibrillation, shocked x 2, started on amiodarone. 3. Fever, suspect sepsis. 4. Rule out COVID-19. 5. Chronic alcoholic hepatitis. 6. Metabolic toxic encephalopathy. 7. Alcoholic hepatitis. 8. Crohn's disease. 9. Type 2 diabetes. 10. Hypertension. 11. Hyperlipidemia. 12. Chronic obstructive pulmonary disease. 13. Abnormal x-ray. 14. Possible aspiration pneumonia. Plan . PLAN: Continue current vent support 100% and PEEP 7 Follow CXR/ABG-- reduce FI02 to 60% Follow ID recs for ABX on Zosyn Follow Cultures Follow neurology recs-- EEG today, + apena Follow cardiology recs-- D/C amio 2/2 Liver disease Continue Vasopressors to Keep MAP above 65 Follow GI recs--- cont. PPI DVT/GI PPX -- SCDS-- No A/C anemia D/W RN and RT PT. is FULL Code Critical Care Time [id number] MINA HERZOG MD Oct 19, 2020 11:27
[2020-10-19] MEDS: IPRATRPIUM/ALBUTEROL 0.5/2.5MG 3 ML NEBU. NEB SCH (13:10)
--- NOTE | 2020-10-19 14:47 | EEG ---
DATE OF SERVICE: 10/19/2020 EEG NUMBER: . OBJECTIVE: The patient is a 50-year-old male status-post code blue, who had some seizure activity. DESCRIPTION: This is a digital study. Electrodes are placed according to the international 10-20 system. Bipolar and referential montages are available. INTERPRETATION: The record consists of 2-3 Hz, less than 10 microvolt activity. There is no reactivity. Hyperventilation is not performed. Intermittent photic stimulation is noncontributory. No normal sleep patterns were seen. IMPRESSION: This electroencephalogram with the patient in an obtunded state is abnormal because of a severe disturbance of cerebral activity consistent with any of a variety of toxic or metabolic encephalopathies including post-anoxic. The study is nearly isoelectric, but there is some activity. Prognosis is very poor. Thank you for letting us help with the patient's care. MATHEW PERRY MD DR: CHUCK/kwaku JOB#: [id number] / [id number]
--- NOTE | 2020-10-19 16:17 | NUR ---
SS following for discharge planning. SS reviewed pt chart and discussed with pt RN. Pt is from home and is currently on the vent at 100%. COVID19 negative. Pt on IV Zosyn. DNR. Prognosis poor. [place] notified. SS will continue to follow for discharge planning.
[2020-10-19] MEDS ORDERED: VANCOMYCIN 1.25 GM in IV NORMAL SALINE 250ML 250 ML IV SCH (18:00)
[2020-10-20] VITALS (34 sets, daily range): BP systolic 87–107; BP diastolic 63–96
[2020-10-20] MEDS: PANTOPRAZOLE IV PUSH 40 MG VIAL. IVP SCH (05:58)
[2020-10-20] MEDS: PIPERACILLIN/TAZOBACTAM 3.375 GM in IV NORMAL SALINE 50ML 50 ML IV SCH ×4 (05:58→23:48)
[2020-10-20 07:51] LABS: BASE EXCESS ABG -1 mmol/L (-3-3); HCO3 ABG 22 mmol/L (21-28); PCO2 ABG 28 mmHg (35-46); PO2 ABG 179 mmHg (75-108); SAT O2 ABG 99 % (92-99)
[2020-10-20] MEDS: IV DEXTROSE 5% 1,000 ML IV SCH ×2 (08:04→17:45)
[2020-10-20] MEDS: levETIRAcetam 500 MG in IV DEXTROSE 5% 100ML 100 ML IV SCH ×2 (08:06→20:58)
--- NOTE | 2020-10-20 08:15 | PDOC ---
Infectious Disease Note Subjective Subjective Patient is unresponsive ROS ROS No nausea vomiting diarrhea Vital Sign Vital Signs Vital Signs Date Time Temp Pulse Resp B/P (MAP) Pulse Ox O2 Delivery O2 Flow Rate FiO2 10/20/20 08:00 98.3 93 26 95/96 (96) 100 Ventilator 98.3 Physical Exam PHYSICAL EXAM GENERAL: Orally intubated gentleman on a ventilator. VITAL SIGNS: Stable HEENT: Both pupils are round and reacting. No conjunctival lesion. Mouth orally intubated. NECK: Supple, no JVP, no lymphadenopathy. LUNGS: Decreased breath sounds. HEART: S1, S2 regular. No gallop or murmur. ABDOMEN: Soft, nontender, no organomegaly. EXTREMITIES: No edema or cyanosis. SKIN: Unremarkable. NEUROLOGIC: The patient is currently intubated on a ventilator. There is no neurologic response. I believe he has not been on any sedation. Labs Micro Microbiology 10/18/20 Blood Culture - Preliminary, Resulted NO GROWTH AFTER 1 DAY Objective Assessment IMPRESSION: 1. Fever. 2. Leukocytosis. 3. Cardiopulmonary arrest. 4. Encephalopathy. 5. Respiratory failure. 6. Crohn's disease. 7. Alcoholism. 8. Diabetes. 9. Hypertension. 10. Chronic obstructive pulmonary disease. 11. Suspected aspiration pneumonia. Plan Plan of Care Continue supportive care Continue antibiotics Overall prognosis poor JAYNE FAUSTIN MD Oct 20, 2020 08:15
[2020-10-20 08:21] LABS: RED BLOOD COUNT 1.94 x10^6/uL (4.30-5.70); RED CELL DISTRIBUTION WIDTH 19.7 % (11.5-14.5); WHITE BLOOD COUNT 10.7 x10^3/uL (4.0-11.0)
--- NOTE | 2020-10-20 08:25 | PN ---
DATE: 10/20/2020 SUBJECTIVE: The patient continued to be intubated, mechanical ventilation, he is off sedation, has no gag reflex and apparently had had an EEG done and it showed that the electroencephalogram with the patient in obtunded state is abnormal because of his severe disturbance of cerebral activity consistent with a variety of toxic or metabolic encephalopathies including post-anoxic. The study is nearly isoelectric, but there is some activity. Overall, prognosis is very poor according to the neurologist. Apparently, his mother made him DNR/DNI. PHYSICAL EXAMINATION: GENERAL: When I saw him this morning, he was pale, but no jaundice, cyanosis or thyromegaly. No jugular venous distention. No lower limb edema. VITAL SIGNS: His heart rate was 90, blood pressure was 87/66, temperature was 97.5, respiratory rate was 26, and oxygen saturation was 100% on FiO2 of 50%. HEAD, EYES, EARS, NOSE AND THROAT: Showed normocephalic, atraumatic. He has orotracheal and orogastric tube. NECK: Supple. HEART: Showed normal first and second heart sounds. No gallop, rub or murmur. CHEST: Clear to auscultation. No crepitation or rhonchi. ABDOMEN: Distended, soft, nontender. NEUROLOGIC: He has Zach coma scale of 3. His intake over the last 24 hours was 3750, output was only 260. LABORATORY DATA: As of yesterday, his white cell count was 2500, hemoglobin 8.8, hematocrit 27.6, MCV 108 and platelet count 207,000. Serum sodium was 138, potassium 5.3, chloride 101, bicarbonate 21, anion gap of 16, BUN 47, creatinine 2.7, estimated GFR was 25 mL per minute, his glucose was 200, calcium was 7.5. Total bilirubin, AST, ALT, alkaline phosphatase slightly elevated. Total protein 6.1, albumin 2. ASSESSMENT: 1. Acute respiratory failure status post cardiac arrest. 2. Cardiac arrest. Initially, the patient was found to be in asystole. Apparently, he went into atrial fibrillation and was shocked twice and started on amiodarone. 3. Fever, likely due to pneumonia. He has right lower lobe infiltrate and he also has a common bile duct dilated for which he was started empirically on Zosyn. 4. Chronic alcoholic hepatitis. 5. Metabolic toxic encephalopathy. 6. Crohn's disease. 7. Type 2 diabetes mellitus. 8. Hypertension. 9. Hyperlipidemia. 10. Chronic obstructive pulmonary disease. 11. Severe encephalopathy. The patient is now DNR/DNI. His EEG is almost isoelectric and has very poor prognosis. Mother made him DNR/DNI. ABEL PAULSON MD DR: ZULMA/kwaku JOB#: [id number] / [id number]
[2020-10-20 08:49] LABS: HEMATOCRIT 20.4 % (39.0-53.0); HEMOGLOBIN 6.8 g/dL (13.0-17.5)
--- NOTE | 2020-10-20 08:50 | PDOC ---
PULMONARY PROGRESS NOTES DATE: 10/20/20 TIME: 08:45 Subjective S/P cardiac arrest PEA , unknown down time on 10/18/20 off pressors No cough, no gag, no corneal reflexes, does not over breath the vent his am Vitals Vital Signs Date Time Temp Pulse Resp B/P (MAP) Pulse Ox O2 Delivery O2 Flow Rate FiO2 10/20/20 08:00 98.3 93 26 95/96 (96) 100 Ventilator 98.3 Comments intubated/sedated Lungs: Clear Cardiovascular: S1, S2 Skin: Warm, Dry Labs Laboratory Tests Test 10/18/20 11:18 10/18/20 15:18 10/18/20 16:00 10/18/20 17:00 Glucose (Fingerstick) 144 mg/dL (70-99) Hemoglobin 7.2 g/dL (13.0-17.5) Hematocrit 22.3 % (39.0-53.0) Prothrombin Time 17.7 SEC (11.7-14.0) Prothromb Time International Ratio 1.5 (0.8-1.1) Activated Partial Thromboplast Time 37 SEC (24-38) Sodium Level 146 mmol/L (136-145) Potassium Level 4.8 mmol/L (3.5-5.1) Chloride Level 106 mmol/L (98-107) Carbon Dioxide Level 26 mmol/L (21-32) Anion Gap 14 (6-14) Blood Urea Nitrogen 40 mg/dL (8-26) Creatinine 2.2 mg/dL (0.7-1.3) Estimated GFR (Cockcroft-Gault) 31.7 BUN/Creatinine Ratio 18 (6-20) Glucose Level 239 mg/dL (70-99) Calcium Level 7.5 mg/dL (8.5-10.1) Magnesium Level 2.5 mg/dL (1.8-2.4) Total Bilirubin 0.8 mg/dL (0.2-1.0) Aspartate Amino Transf (AST/SGOT) 60 U/L (15-37) Alanine Aminotransferase (ALT/SGPT) 54 U/L (16-63) Alkaline Phosphatase 199 U/L (46-116) Troponin I Quantitative 0.017 ng/mL (0.000-0.055) Total Protein 5.2 g/dL (6.4-8.2) Albumin 1.9 g/dL (3.4-5.0) Albumin/Globulin Ratio 0.6 (1.0-1.7) O2 Saturation 94 % (92-99) Arterial Blood pH 7.33 (7.35-7.45) Arterial Blood pCO2 at Patient Temp 54 mmHg (35-46) Arterial Blood pO2 at Patient Temp 84 mmHg (75-108) Arterial Blood HCO3 28 mmol/L (21-28) Arterial Blood Base Excess 1 mmol/L (-3-3) FiO2 100 Test 10/18/20 17:45 10/19/20 03:33 10/19/20 07:45 10/19/20 08:05 SARS-CoV-2 Antigen (Rapid) Negative (NEGATIVE) Glucose (Fingerstick) 232 mg/dL (70-99) O2 Saturation 99 % (92-99) Arterial Blood pH 7.43 (7.35-7.45) Arterial Blood pH (Temp corrected) 7.40 Arterial Blood pCO2 at Patient Temp 34 mmHg (35-46) Arterial Blood pCO2 (Temp correct) 37 mmHg Arterial Blood pO2 at Patient Temp 329 mmHg (75-108) Arterial Blood pO2 (Temp corrected) 339 mmHg Arterial Blood HCO3 22 mmol/L (21-28) Arterial Blood Base Excess -2 mmol/L (-3-3) FiO2 100% vent + 7 peep White Blood Count 25.1 x10^3/uL (4.0-11.0) Red Blood Count 2.57 x10^6/uL (4.30-5.70) Hemoglobin 8.8 g/dL (13.0-17.5) Hematocrit 27.6 % (39.0-53.0) Mean Corpuscular Volume 108 fL (79-100) Mean Corpuscular Hemoglobin 34 pg (25-35) Mean Corpuscular Hemoglobin Concent 32 g/dL (31-37) Red Cell Distribution Width 19.4 % (11.5-14.5) Platelet Count 207 x10^3/uL (140-400) Sodium Level 138 mmol/L (136-145) Potassium Level 5.3 mmol/L (3.5-5.1) Chloride Level 101 mmol/L (98-107) Carbon Dioxide Level 21 mmol/L (21-32) Anion Gap 16 (6-14) Blood Urea Nitrogen 47 mg/dL (8-26) Creatinine 2.7 mg/dL (0.7-1.3) Estimated GFR (Cockcroft-Gault) 25.0 BUN/Creatinine Ratio 17 (6-20) Glucose Level 200 mg/dL (70-99) Calcium Level 7.5 mg/dL (8.5-10.1) Total Bilirubin 1.3 mg/dL (0.2-1.0) Aspartate Amino Transf (AST/SGOT) 67 U/L (15-37) Alanine Aminotransferase (ALT/SGPT) 52 U/L (16-63) Alkaline Phosphatase 154 U/L (46-116) Troponin I Quantitative 0.089 ng/mL (0.000-0.055) Total Protein 6.1 g/dL (6.4-8.2) Albumin 2.0 g/dL (3.4-5.0) Albumin/Globulin Ratio 0.5 (1.0-1.7) Triglycerides Level 80 mg/dL (0-150) Cholesterol Level 71 mg/dL (0-200) LDL Cholesterol, Calculated 33 mg/dL (0-100) VLDL Cholesterol, Calculated 16 mg/dL (0-40) Non-HDL Cholesterol Calculated 49 mg/dL (0-129) HDL Cholesterol 22 mg/dL (40-60) Cholesterol/HDL Ratio 3.2 Medications Active Scripts Medications Dose Route/Sig Max Daily Dose Days Date Category Vitamin B-1 (Thiamine Hcl) 100 Mg Tablet 200 Mg PO DAILY 10/17/20 Reported Folic Acid 0.8 Mg Tablet 20 Mg PO DAILY 10/17/20 Reported B-12 (Cyanocobalamin (Vitamin B-12)) 1,000 Mcg Tablet.er 1 Tab PO DAILY 30 10/17/20 Reported Capsaicin 60 Gm Cream..g. 60 Gm TP PRN QID PRN 10/17/20 Reported Metformin Hcl 500 Mg Tablet 500 Mg PO BIDWMEALS 10/17/20 Reported Anecream (Lidocaine) 5 Gm Cream..g. 1 [place] TP PRN QID PRN 30 10/17/20 Reported Symbicort 160-4.5 Mcg Inhaler (Budesonide/Formoterol Fumarate) 10.2 Gm Hfa.aer.ad 2 Puff IH BID 10/17/20 Reported Potassium Chloride 20 Meq Tablet.er 20 Meq PO DAILY 10/17/20 Reported Cymbalta (Duloxetine Hcl) 60 Mg Capsule.dr 90 Mg PO DAILY 10/17/20 Reported Gabapentin 600 Mg Tablet 600 Mg PO TID 10/17/20 Reported Aspirin 81 Mg Tab.chew 1 Tab PO DAILY 10/17/20 Reported Cozaar (Losartan Potassium) 25 Mg Tablet 25 Mg PO DAILY 10/17/20 Reported Viagra (Sildenafil Citrate) 50 Mg Tablet 50 Mg PO ONCE PRN 10/17/20 Reported Crestor (Rosuvastatin Calcium) 5 Mg Tablet 2.5 Mg PO HS 10/17/20 Reported Flomax (Tamsulosin Hcl) 0.4 Mg Cap.er.24h 1 Cap PO DAILY 10/17/20 Reported Proair Hfa (Albuterol Sulfate) 8.5 Gm Hfa.aer.ad 2 Puff IH PRN Q4-6HRS PRN 21 10/17/20 Reported Spiriva (Tiotropium [place]) 18 Mcg Cap.w.dev 1 Cap IH DAILY 10/17/20 Reported Comments EEG 10/19/20 IMPRESSION This electroencephalogram with the patient in an obtunded state is abnormal because of a severe disturbance of cerebral activity consistent with any of a variety of toxic or metabolic encephalopathies including post-anoxic. The study is nearly isoelectric, but there is some activity. Prognosis is very poor. Impression . IMPRESSION: 1. Acute respiratory failure secondary to cardiac arrest, improving 2. Cardiac arrest. Initially, the patient found to be in asystole, then went into ventricular fibrillation, shocked x 2, started on amiodarone. 3. Fever, suspect sepsis. 4. Rule out COVID-19. 5. Chronic alcoholic hepatitis. 6. Metabolic toxic encephalopathy. 7. Alcoholic hepatitis. 8. Crohn's disease. 9. Type 2 diabetes. 10. Hypertension. 11. Hyperlipidemia. 12. Chronic obstructive pulmonary disease. 13. Abnormal x-ray. 14. Possible aspiration pneumonia. 15. anoxic brain injury Plan . PLAN: Continue current vent support 60%/ PEEP 8 Follow CXR/ABG-- reduce FI02 to 40% and PEEP to 5, reduce resp. rate to 22 Proceed with [place] test today Follow ID recs for ABX on Zosyn Follow Cultures-- NGTD Vasopressors if needed to Keep MAP above 65 --- currently off levophed Follow neurology recs-- EEG see report Follow cardiology recs Follow GI recs--- cont. PPI Monitor renal function, worsening DVT/GI PPX -- SCDS-- No A/C anemia D/W RN and RT PT. is FULL Code Critical Care Time 0815-0845AM PT. is DNR MARGO RUSS MD Oct 20, 2020 08:50
[2020-10-20 09:00] LABS: ALBUMIN 1.5 g/dL (3.4-5.0); ALBUMIN/GLOBULIN RATIO 0.4 (1.0-1.7); CALCIUM 7.4 mg/dL (8.5-10.1); CREATININE 2.5 mg/dL (0.7-1.3); GFR 27.4; TOTAL BILIRUBIN 0.9 mg/dL (0.2-1.0); TOTAL PROTEIN 5.3 g/dL (6.4-8.2)
[2020-10-20 09:27] LABS: FIO2 ABG 50% VENT
--- NOTE | 2020-10-20 09:44 | PDOC ---
PROGRESS NOTES Date of Service DATE: 10/20/20 TIME: 09:43 Assessment Anoxic encephalopathy, no sign of seizure activity on EEG 10/19. Has some basic brainstem reflexes Prior metabolic encephalopathy that was improving. Acute kidney injury, hypokalemia and hyponatremia, chronic alcoholic liver disease, Crohn's disease, hypertension, hyperlipidemia, chronic obstructive pulmonary disease, benign prostatic hypertrophy. Plan Levetiracetam Treat medical diseases Discussed with patient's mother yesterday, patient is now DNR Subjective None Objective Vital Signs Date Time Temp Pulse Resp B/P (MAP) Pulse Ox O2 Delivery O2 Flow Rate FiO2 10/20/20 09:40 100 Ventilator 10/20/20 09:33 94 22 91/69 (76) 10/20/20 08:00 98.3 98.3 Intake and Output 10/20/20 07:00 Intake Total 2579 ml Output Total 2345 ml Balance 234 ml IV Total 2579 ml Output Urine Total 2345 ml Review of Relevant I have reviewed the following items giovanna (where applicable) has been applied. Labs Laboratory Tests Test 10/18/20 11:18 10/18/20 15:18 10/18/20 16:00 10/18/20 17:00 Glucose (Fingerstick) 144 mg/dL (70-99) Hemoglobin 7.2 g/dL (13.0-17.5) Hematocrit 22.3 % (39.0-53.0) Prothrombin Time 17.7 SEC (11.7-14.0) Prothromb Time International Ratio 1.5 (0.8-1.1) Activated Partial Thromboplast Time 37 SEC (24-38) Sodium Level 146 mmol/L (136-145) Potassium Level 4.8 mmol/L (3.5-5.1) Chloride Level 106 mmol/L (98-107) Carbon Dioxide Level 26 mmol/L (21-32) Anion Gap 14 (6-14) Blood Urea Nitrogen 40 mg/dL (8-26) Creatinine 2.2 mg/dL (0.7-1.3) Estimated GFR (Cockcroft-Gault) 31.7 BUN/Creatinine Ratio 18 (6-20) Glucose Level 239 mg/dL (70-99) Calcium Level 7.5 mg/dL (8.5-10.1) Magnesium Level 2.5 mg/dL (1.8-2.4) Total Bilirubin 0.8 mg/dL (0.2-1.0) Aspartate Amino Transf (AST/SGOT) 60 U/L (15-37) Alanine Aminotransferase (ALT/SGPT) 54 U/L (16-63) Alkaline Phosphatase 199 U/L (46-116) Troponin I Quantitative 0.017 ng/mL (0.000-0.055) Total Protein 5.2 g/dL (6.4-8.2) Albumin 1.9 g/dL (3.4-5.0) Albumin/Globulin Ratio 0.6 (1.0-1.7) O2 Saturation 94 % (92-99) Arterial Blood pH 7.33 (7.35-7.45) Arterial Blood pCO2 at Patient Temp 54 mmHg (35-46) Arterial Blood pO2 at Patient Temp 84 mmHg (75-108) Arterial Blood HCO3 28 mmol/L (21-28) Arterial Blood Base Excess 1 mmol/L (-3-3) FiO2 100 Test 10/18/20 17:45 10/19/20 03:33 10/19/20 07:45 10/19/20 08:05 SARS-CoV-2 Antigen (Rapid) Negative (NEGATIVE) Glucose (Fingerstick) 232 mg/dL (70-99) O2 Saturation 99 % (92-99) Arterial Blood pH 7.43 (7.35-7.45) Arterial Blood pH (Temp corrected) 7.40 Arterial Blood pCO2 at Patient Temp 34 mmHg (35-46) Arterial Blood pCO2 (Temp correct) 37 mmHg Arterial Blood pO2 at Patient Temp 329 mmHg (75-108) Arterial Blood pO2 (Temp corrected) 339 mmHg Arterial Blood HCO3 22 mmol/L (21-28) Arterial Blood Base Excess -2 mmol/L (-3-3) FiO2 100% vent + 7 peep White Blood Count 25.1 x10^3/uL (4.0-11.0) Red Blood Count 2.57 x10^6/uL (4.30-5.70) Hemoglobin 8.8 g/dL (13.0-17.5) Hematocrit 27.6 % (39.0-53.0) Mean Corpuscular Volume 108 fL (79-100) Mean Corpuscular Hemoglobin 34 pg (25-35) Mean Corpuscular Hemoglobin Concent 32 g/dL (31-37) Red Cell Distribution Width 19.4 % (11.5-14.5) Platelet Count 207 x10^3/uL (140-400) Sodium Level 138 mmol/L (136-145) Potassium Level 5.3 mmol/L (3.5-5.1) Chloride Level 101 mmol/L (98-107) Carbon Dioxide Level 21 mmol/L (21-32) Anion Gap 16 (6-14) Blood Urea Nitrogen 47 mg/dL (8-26) Creatinine 2.7 mg/dL (0.7-1.3) Estimated GFR (Cockcroft-Gault) 25.0 BUN/Creatinine Ratio 17 (6-20) Glucose Level 200 mg/dL (70-99) Calcium Level 7.5 mg/dL (8.5-10.1) Total Bilirubin 1.3 mg/dL (0.2-1.0) Aspartate Amino Transf (AST/SGOT) 67 U/L (15-37) Alanine Aminotransferase (ALT/SGPT) 52 U/L (16-63) Alkaline Phosphatase 154 U/L (46-116) Troponin I Quantitative 0.089 ng/mL (0.000-0.055) Total Protein 6.1 g/dL (6.4-8.2) Albumin 2.0 g/dL (3.4-5.0) Albumin/Globulin Ratio 0.5 (1.0-1.7) Triglycerides Level 80 mg/dL (0-150) Cholesterol Level 71 mg/dL (0-200) LDL Cholesterol, Calculated 33 mg/dL (0-100) VLDL Cholesterol, Calculated 16 mg/dL (0-40) Non-HDL Cholesterol Calculated 49 mg/dL (0-129) HDL Cholesterol 22 mg/dL (40-60) Cholesterol/HDL Ratio 3.2 Test 10/20/20 07:50 10/20/20 07:55 White Blood Count 10.7 x10^3/uL (4.0-11.0) Red Blood Count 1.94 x10^6/uL (4.30-5.70) Hemoglobin 6.8 g/dL (13.0-17.5) Hematocrit 20.4 % (39.0-53.0) Mean Corpuscular Volume 106 fL (79-100) Mean Corpuscular Hemoglobin 35 pg (25-35) Mean Corpuscular Hemoglobin Concent 33 g/dL (31-37) Red Cell Distribution Width 19.7 % (11.5-14.5) Platelet Count 132 x10^3/uL (140-400) Sodium Level 137 mmol/L (136-145) Potassium Level 4.0 mmol/L (3.5-5.1) Chloride Level 101 mmol/L (98-107) Carbon Dioxide Level 23 mmol/L (21-32) Anion Gap 13 (6-14) Blood Urea Nitrogen 56 mg/dL (8-26) Creatinine 2.5 mg/dL (0.7-1.3) Estimated GFR (Cockcroft-Gault) 27.4 BUN/Creatinine Ratio 22 (6-20) Glucose Level 123 mg/dL (70-99) Calcium Level 7.4 mg/dL (8.5-10.1) Iron Level 16 ug/dL (65-175) Total Iron Binding Capacity 122 ug/dL (250-450) Iron Saturation 13 % (15-34) Total Bilirubin 0.9 mg/dL (0.2-1.0) Aspartate Amino Transf (AST/SGOT) 85 U/L (15-37) Alanine Aminotransferase (ALT/SGPT) 42 U/L (16-63) Alkaline Phosphatase 129 U/L (46-116) Total Protein 5.3 g/dL (6.4-8.2) Albumin 1.5 g/dL (3.4-5.0) Albumin/Globulin Ratio 0.4 (1.0-1.7) O2 Saturation 99 % (92-99) Arterial Blood pH 7.50 (7.35-7.45) Arterial Blood pCO2 at Patient Temp 28 mmHg (35-46) Arterial Blood pO2 at Patient Temp 179 mmHg (75-108) Arterial Blood HCO3 22 mmol/L (21-28) Arterial Blood Base Excess -1 mmol/L (-3-3) FiO2 50% vent Laboratory Tests Test 10/20/20 07:50 10/20/20 07:55 White Blood Count 10.7 x10^3/uL (4.0-11.0) Red Blood Count 1.94 x10^6/uL (4.30-5.70) Hemoglobin 6.8 g/dL (13.0-17.5) Hematocrit 20.4 % (39.0-53.0) Mean Corpuscular Volume 106 fL (79-100) Mean Corpuscular Hemoglobin 35 pg (25-35) Mean Corpuscular Hemoglobin Concent 33 g/dL (31-37) Red Cell Distribution Width 19.7 % (11.5-14.5) Platelet Count 132 x10^3/uL (140-400) Sodium Level 137 mmol/L (136-145) Potassium Level 4.0 mmol/L (3.5-5.1) Chloride Level 101 mmol/L (98-107) Carbon Dioxide Level 23 mmol/L (21-32) Anion Gap 13 (6-14) Blood Urea Nitrogen 56 mg/dL (8-26) Creatinine 2.5 mg/dL (0.7-1.3) Estimated GFR (Cockcroft-Gault) 27.4 BUN/Creatinine Ratio 22 (6-20) Glucose Level 123 mg/dL (70-99) Calcium Level 7.4 mg/dL (8.5-10.1) Iron Level 16 ug/dL (65-175) Total Iron Binding Capacity 122 ug/dL (250-450) Iron Saturation 13 % (15-34) Total Bilirubin 0.9 mg/dL (0.2-1.0) Aspartate Amino Transf (AST/SGOT) 85 U/L (15-37) Alanine Aminotransferase (ALT/SGPT) 42 U/L (16-63) Alkaline Phosphatase 129 U/L (46-116) Total Protein 5.3 g/dL (6.4-8.2) Albumin 1.5 g/dL (3.4-5.0) Albumin/Globulin Ratio 0.4 (1.0-1.7) O2 Saturation 99 % (92-99) Arterial Blood pH 7.50 (7.35-7.45) Arterial Blood pCO2 at Patient Temp 28 mmHg (35-46) Arterial Blood pO2 at Patient Temp 179 mmHg (75-108) Arterial Blood HCO3 22 mmol/L (21-28) Arterial Blood Base Excess -1 mmol/L (-3-3) FiO2 50% vent Microbiology 10/18/20 Blood Culture - Preliminary, Resulted NO GROWTH AFTER 1 DAY Medications Current Medications Albuterol Sulfate (Ventolin Neb Soln) 2.5 mg PRN Q4HRS PRN NEB SHORTNESS OF BREATH; Start 10/16/20 at 22:15; Stop 10/19/20 at 11:00; Status DC Budesonide (Pulmicort) 0.5 mg RTBID NEB Last administered on 10/18/20at 06:05; Start 10/17/20 at 08:00; Stop 10/19/20 at 11:00; Status DC Capsaicin (Zostrix) 1 lea PRN QID PRN TP MODERATE PAIN 4-6; Start 10/16/20 at 22:15 Duloxetine HCl (Cymbalta) 90 mg DAILY PO ; Start 10/17/20 at 09:00; Stop 10/17/20 at 09:45; Status DC Albuterol/ Ipratropium (Duoneb) 3 ml RTQID NEB Last administered on 10/18/20at 11:27; Start 10/17/20 at 08:00; Stop 10/19/20 at 13:11; Status DC Lidocaine HCl (Xylocaine 2% Topical 30gm Tube) 1 lea PRN QID PRN TP MUSCLE PAIN; Start 10/16/20 at 22:15 Ondansetron HCl (Zofran) 4 mg PRN Q6HRS PRN IVP NAUSEA/VOMITING 1ST CHOICE; Start 10/16/20 at 22:15 Pantoprazole Sodium (PROTONIX VIAL for IV PUSH) 40 mg DAILYAC IVP Last administered on 10/20/20at 05:58; Start 10/17/20 at 07:30 Potassium Chloride/Sodium Chloride 1,000 ml @ 125 mls/hr Q8H IV Last administered on 10/17/20at 00:43; Start 10/16/20 at 23:00; Stop 10/17/20 at 09:43; Status DC Dextrose 1,000 ml @ 100 mls/hr Q10H IV Last administered on 10/20/20at 08:04; Start 10/17/20 at 09:45 Insulin Human Lispro (HumaLOG) 0-5 UNITS PRN Q6HRS PRN SQ hyperglycemia; Start 10/17/20 at 09:45 Dextrose (Dextrose 50%-Water Syringe) 12.5 gm PRN Q15MIN PRN IV SEE COMMENTS; Start 10/17/20 at 09:45 Piperacillin Sod/ Tazobactam Sod 3.375 gm/Sodium Chloride 50 ml @ 100 mls/hr Q6HRS IV Last administered on 10/20/20at 05:58; Start 10/18/20 at 01:00 Acetaminophen (Tylenol Supp) 650 mg PRN Q6HRS PRN GA MILD PAIN / TEMP > 100.3'F Last administered on 10/18/20at 10:00; Start 10/18/20 at 00:15 Acetaminophen (Tylenol) 650 mg PRN Q6HRS PRN PO MILD PAIN / TEMP > 100.3'F Last administered on 10/19/20at 23:32; Start 10/18/20 at 00:15 Fentanyl Citrate 30 ml @ 0 mls/hr CONT PRN IV SEE PROTOCOL; Start 10/18/20 at 16:00 Midazolam HCl 100 ml @ 0 mls/hr CONT PRN IV SEE PROTOCOL; Start 10/18/20 at 16:00 Norepinephrine Bitartrate 8 mg/ Dextrose 258 ml @ 16.002 mls/ hr CONT PRN IV PER PROTOCOL Last administered on 10/19/20at 12:57; Start 10/18/20 at 16:00 Piperacillin Sod/ Tazobactam Sod (Zosyn Per Pharmacy) 1 each PRN DAILY PRN MC SEE COMMENTS; Start 10/18/20 at 16:30 Vancomycin HCl (Vanco Per Pharmacy) 1 each PRN DAILY PRN MC SEE COMMENTS Last administered on 10/18/20at 20:04; Start 10/18/20 at 16:30; Stop 10/19/20 at 09:02; Status DC Thiamine HCl 100 mg/Folic Acid 1 mg/Sodium Chloride 1,001.2 ml @ 990.198 mls/hr 1X ONCE IV Last administered on 10/18/20at 17:55; Start 10/18/20 at 17:00; Stop 10/18/20 at 18:00; Status DC Vancomycin HCl 2 gm/Sodium Chloride 500 ml @ 250 mls/hr Q24H IV Last administered on 10/18/20at 17:57; Start 10/18/20 at 18:00; Stop 10/18/20 at 21:00; Status DC Piperacillin Sod/ Tazobactam Sod 3.375 gm/Sodium Chloride 50 ml @ 100 mls/hr Q6HRS IV ; Start 10/18/20 at 18:00; Status Cancel Amiodarone HCl 450 mg/Dextrose 259 ml @ 33 mls/hr CONT PRN IV SEE I/O RECORD Last administered on 10/19/20at 03:31; Start 10/18/20 at 17:00; Stop 10/19/20 at 03:32; Status DC Etomidate (Amidate) 20 mg STK-MED ONCE IV ; Start 10/18/20 at 17:22; Stop 10/18/20 at 17:22; Status DC Levetiracetam 500 mg/Dextrose 105 ml @ 420 mls/hr Q12HR IV Last administered on 10/20/20at 08:06; Start 10/18/20 at 18:28 Vancomycin HCl 1.25 gm/Sodium Chloride 250 ml @ 167 mls/hr Q24H IV ; Start 10/19/20 at 18:00; Stop 10/19/20 at 08:54; Status DC Vancomycin HCl (Vancomycin Trough Level) 1 each 1X ONCE MC ; Start 10/20/20 at 17:30; Stop 10/19/20 at 09:02; Status DC Active Scripts Active Reported Vitamin B-1 (Thiamine Hcl) 100 Mg Tablet 200 Mg PO DAILY Folic Acid 0.8 Mg Tablet 20 Mg PO DAILY B-12 (Cyanocobalamin (Vitamin B-12)) 1,000 Mcg Tablet.er 1 Tab PO DAILY 30 Days Capsaicin 60 Gm Cream..g. 60 Gm TP PRN QID PRN Metformin Hcl 500 Mg Tablet 500 Mg PO BIDWMEALS Anecream (Lidocaine) 5 Gm Cream..g. 1 Lea TP PRN QID PRN 30 Days Symbicort 160-4.5 Mcg Inhaler (Budesonide/Formoterol Fumarate) 10.2 Gm Hfa.aer.ad 2 Puff IH BID Potassium Chloride 20 Meq Tablet.er 20 Meq PO DAILY Cymbalta (Duloxetine Hcl) 60 Mg Capsule.dr 90 Mg PO DAILY Gabapentin 600 Mg Tablet 600 Mg PO TID Aspirin 81 Mg Tab.chew 1 Tab PO DAILY Cozaar (Losartan Potassium) 25 Mg Tablet 25 Mg PO DAILY Viagra (Sildenafil Citrate) 50 Mg Tablet 50 Mg PO ONCE PRN Crestor (Rosuvastatin Calcium) 5 Mg Tablet 2.5 Mg PO HS Flomax (Tamsulosin Hcl) 0.4 Mg Cap.er.24h 1 Cap PO DAILY Proair Hfa (Albuterol Sulfate) 8.5 Gm Hfa.aer.ad 2 Puff IH PRN Q4-6HRS PRN 21 Days Spiriva (Tiotropium Zullinger) 18 Mcg Cap.w.dev 1 Cap IH DAILY Vitals/I & O Vital Sign - Last 24 Hours 10/19/20 10/19/20 10/19/20 10/19/20 10:10 10:53 11:20 12:06 Temp 101.4 101.4 Pulse 104 110 108 Resp B/P (MAP) 129/70 (89) 133/80 (97) 110/70 (83) 106/65 (79) Pulse Ox 100 100 100 O2 Delivery Ventilator Ventilator Ventilator 10/19/20 10/19/20 10/19/20 10/19/20 12:09 12:40 12:59 14:00 Pulse 108 103 B/P (MAP) 103/72 (82) 91/63 (72) Pulse Ox 100 100 100 O2 Delivery Mechanical Ventilator Ventilator Ventilator Ventilator 10/19/20 10/19/20 10/19/20 10/19/20 14:00 15:02 16:17 16:20 Temp 100.1 100.1 Pulse 107 98 B/P (MAP) 93/60 (71) 95/65 (75) Pulse Ox 100 100 O2 Delivery Ventilator Ventilator Ventilator Mechanical Ventilator 10/19/20 10/19/20 10/19/20 10/19/20 16:23 17:45 18:33 19:00 Pulse 98 96 94 Resp B/P (MAP) 93/64 (74) 100/70 (80) 103/63 (76) Pulse Ox 100 100 100 100 O2 Delivery Ventilator Ventilator Ventilator Ventilator 10/19/20 10/19/20 10/19/20 10/19/20 19:30 19:44 20:00 20:00 Temp 99.7 99.7 Pulse 94 92 B/P (MAP) 102/70 (81) 107/71 (83) Pulse Ox 100 100 100 O2 Delivery Ventilator Ventilator Ventilator Mechanical Ventilator 10/19/20 10/19/20 10/19/20 10/19/20 20:30 21:00 21:30 22:00 Temp 98.9 98.9 Pulse 94 94 94 96 Resp B/P (MAP) 109/75 (86) 109/82 (91) 108/75 (86) 117/81 (93) Pulse Ox 100 100 100 100 O2 Delivery Ventilator Ventilator Ventilator Ventilator 10/19/20 10/19/20 10/19/20 10/20/20 22:30 23:00 23:30 00:00 Pulse 96 96 96 Resp B/P (MAP) 118/80 (93) 123/86 (98) 131/85 (100) Pulse Ox 100 100 100 O2 Delivery Ventilator Ventilator Ventilator Mechanical Ventilator 10/20/20 10/20/20 10/20/20 10/20/20 00:00 00:05 00:30 01:00 Temp 99.0 99.0 Pulse 98 96 92 Resp B/P (MAP) 107/64 (78) 102/75 (84) 96/70 (79) Pulse Ox 100 100 100 100 O2 Delivery Ventilator Ventilator Ventilator Ventilator 10/20/20 10/20/20 10/20/20 10/20/20 01:30 02:00 02:30 03:00 Temp 98.4 98.4 Pulse 94 95 94 94 Resp B/P (MAP) 103/75 (84) 107/74 (85) 107/72 (84) 106/75 (85) Pulse Ox 100 100 100 100 O2 Delivery Ventilator Ventilator Ventilator Ventilator 10/20/20 10/20/20 10/20/20 10/20/20 03:30 04:00 04:00 04:30 Temp 97.9 97.9 Pulse 98 96 96 Resp B/P (MAP) 95/66 (76) 98/65 (76) 95/68 (77) Pulse Ox 100 100 100 O2 Delivery Ventilator Ventilator Mechanical Ventilator Ventilator 10/20/20 10/20/20 10/20/20 10/20/20 05:00 05:00 05:30 06:00 Temp 97.5 97.5 Pulse 94 94 94 Resp B/P (MAP) 93/69 (77) 97/71 (80) 93/70 (78) Pulse Ox 100 100 100 100 O2 Delivery Ventilator Ventilator Ventilator Ventilator 10/20/20 10/20/20 10/20/20 10/20/20 07:08 07:46 08:00 09:33 Temp 98.3 98.3 Pulse 90 93 94 Resp B/P (MAP) 87/66 (73) 95/96 (96) 91/69 (76) Pulse Ox 100 100 100 O2 Delivery Ventilator Mechanical Ventilator Ventilator Ventilator 10/20/20 09:40 Pulse Ox 100 O2 Delivery Ventilator Intake and Output 10/19/20 10/19/20 10/20/20 15:00 23:00 07:00 Intake Total 150 ml 1030 ml 1399 ml Output Total 760 ml 710 ml 875 ml Balance -610 ml 320 ml 524 ml Justicifation of Admission Dx: Justifications for Admission: Justification of Admission Dx: Yes MATHEW PERRY MD Oct 20, 2020 09:44
--- NOTE | 2020-10-20 10:31 | PDOC ---
Date of Service: DATE: 10/20/20 TIME: 10:26 Objective: Objective: D/w nurse - family considering withdrawal of care. Vital Signs: Vital Signs Date Time Temp Pulse Resp B/P (MAP) Pulse Ox O2 Delivery O2 Flow Rate FiO2 10/20/20 10:02 94 22 93/66 (75) 100 Ventilator 10/20/20 08:00 98.3 98.3 Labs: Laboratory Tests Test 10/20/20 07:50 10/20/20 07:55 White Blood Count 10.7 x10^3/uL Red Blood Count 1.94 x10^6/uL Hemoglobin 6.8 g/dL Hematocrit 20.4 % Mean Corpuscular Volume 106 fL Mean Corpuscular Hemoglobin 35 pg Mean Corpuscular Hemoglobin Concent 33 g/dL Red Cell Distribution Width 19.7 % Platelet Count 132 x10^3/uL Sodium Level 137 mmol/L Potassium Level 4.0 mmol/L Chloride Level 101 mmol/L Carbon Dioxide Level 23 mmol/L Anion Gap 13 Blood Urea Nitrogen 56 mg/dL Creatinine 2.5 mg/dL Estimated GFR (Cockcroft-Gault) 27.4 BUN/Creatinine Ratio 22 Glucose Level 123 mg/dL Calcium Level 7.4 mg/dL Iron Level 16 ug/dL Total Iron Binding Capacity 122 ug/dL Iron Saturation 13 % Total Bilirubin 0.9 mg/dL Aspartate Amino Transf (AST/SGOT) 85 U/L Alanine Aminotransferase (ALT/SGPT) 42 U/L Alkaline Phosphatase 129 U/L Total Protein 5.3 g/dL Albumin 1.5 g/dL Albumin/Globulin Ratio 0.4 O2 Saturation 99 % Arterial Blood pH 7.50 Arterial Blood pCO2 at Patient Temp 28 mmHg Arterial Blood pO2 at Patient Temp 179 mmHg Arterial Blood HCO3 22 mmol/L Arterial Blood Base Excess -1 mmol/L FiO2 50% vent BLOOD CULTURE Preliminary NO GROWTH AFTER 2 DAYS Imaging: EEG 10/19 IMPRESSION: This electroencephalogram with the patient in an obtunded state is abnormal because of a severe disturbance of cerebral activity consistent with any of a variety of toxic or metabolic encephalopathies including post-anoxic. The study is nearly isoelectric, but there is some activity. Prognosis is very poor. PE: GEN: intubated LUNGS: vent HEART: RR ABD: non-distended NEURO/PSYCH: unresponsive A/P: S/p arrest, resp failure, anoxic encephalopathy ACD/MAGNO (drift in Hgb today w/o obvious bleeding), MATT, alcoholic hepatitis (better) Hepatomegaly, hepatic steatosis, GB sludge, CBD 6mm H/o Crohn's Rapid COVID negative 10/18/20 -- Poor prognosis, await family's decision - if to continue care, would transfuse 1 unit pRBCs. Justicifation of Admission Dx: Justifications for Admission: Justification of Admission Dx: Yes WISAM YANES Oct 20, 2020 10:31
--- NOTE | 2020-10-20 13:12 | PDOC ---
BEYT NIETO SIGN BOARD ERECTOR 10/20/20 1312: CARDIO Progress Notes Date and Time Date of Service 10/20/2020 Time of Evaluation 1300 Subjective Subjective: Other (sedated) Vitals Vitals Vital Signs Date Time Temp Pulse Resp B/P (MAP) Pulse Ox O2 Delivery O2 Flow Rate FiO2 10/20/20 12:04 Mechanical Ventilator 10/20/20 12:00 97.7 93 22 93/69 (77) 100 97.7 Weight Weight [ ] Input and Output Intake and Output Intake and Output 10/20/20 07:00 Intake Total 2579 ml Output Total 2345 ml Balance 234 ml IV Total 2579 ml Output Urine Total 2345 ml Laboratory Labs Laboratory Tests Test 10/20/20 07:50 10/20/20 07:55 White Blood Count 10.7 x10^3/uL (4.0-11.0) Red Blood Count 1.94 x10^6/uL (4.30-5.70) Hemoglobin 6.8 g/dL (13.0-17.5) Hematocrit 20.4 % (39.0-53.0) Mean Corpuscular Volume 106 fL (79-100) Mean Corpuscular Hemoglobin 35 pg (25-35) Mean Corpuscular Hemoglobin Concent 33 g/dL (31-37) Red Cell Distribution Width 19.7 % (11.5-14.5) Platelet Count 132 x10^3/uL (140-400) Sodium Level 137 mmol/L (136-145) Potassium Level 4.0 mmol/L (3.5-5.1) Chloride Level 101 mmol/L (98-107) Carbon Dioxide Level 23 mmol/L (21-32) Anion Gap 13 (6-14) Blood Urea Nitrogen 56 mg/dL (8-26) Creatinine 2.5 mg/dL (0.7-1.3) Estimated GFR (Cockcroft-Gault) 27.4 BUN/Creatinine Ratio 22 (6-20) Glucose Level 123 mg/dL (70-99) Calcium Level 7.4 mg/dL (8.5-10.1) Iron Level 16 ug/dL (65-175) Total Iron Binding Capacity 122 ug/dL (250-450) Iron Saturation 13 % (15-34) Total Bilirubin 0.9 mg/dL (0.2-1.0) Aspartate Amino Transf (AST/SGOT) 85 U/L (15-37) Alanine Aminotransferase (ALT/SGPT) 42 U/L (16-63) Alkaline Phosphatase 129 U/L (46-116) Total Protein 5.3 g/dL (6.4-8.2) Albumin 1.5 g/dL (3.4-5.0) Albumin/Globulin Ratio 0.4 (1.0-1.7) O2 Saturation 99 % (92-99) Arterial Blood pH 7.50 (7.35-7.45) Arterial Blood pCO2 at Patient Temp 28 mmHg (35-46) Arterial Blood pO2 at Patient Temp 179 mmHg (75-108) Arterial Blood HCO3 22 mmol/L (21-28) Arterial Blood Base Excess -1 mmol/L (-3-3) FiO2 50% vent Microbiology Micro Microbiology 10/18/20 Blood Culture - Preliminary, Resulted NO GROWTH AFTER 1 DAY Physical Exam HEENT: Neck Supple W Full Motion Chest: Symmetric LUNGS: Other (intubated/vent) Heart: RRR (SR) Abdomen: Other (ascites) Extremities: Other (anasarca) Neurology: other (sedated) Assessment Assessment 1. S/p cardiac arrest; initially asystole, then ventricular fibrillation. Defibrillated x2 prior to ROSC. Amiodarone initiated. Now maintaining SR 2. Acute respiratory failure in setting of above; s/p intubation, mechanical ventilation 3. Leukocytosis, fevers, probable sepsis. requiring pressor support 4. Metabolic/anoxic encephalopathy; not on sedation, unresponsive 5. Anemia, coffee ground emesis 6. ? Aspiration PNA 7. MATT, hyperkalemia 8. H/o Crohn' s Disease 9. Chronic alcoholic hepatitis 10. H/o hypertension: controlled 11. Hyperlipidemia 12. PUI; rapid negative. PCR pending 13. Anemia/mild coagulopathy: Hgb 6.8 Recommendations 1. Very poor prognosis, now DNR. Palliative meeting pending 2. Transfusion ongoing. 3. Supportive care. Pressor as warranted. Not a candidate for amiodarone due to significant liver disease Justicifation of Admission Dx: Justifications for Admission: Justification of Admission Dx: Yes KIN WOODS MD 10/21/20 1323: CARDIO Progress Notes Plan Plan Late entry for 10/20/2019 pt. seen and examined. Agree with above BLAST SETTER note. Supportive care. BETY NIETO APRN Oct 20, 2020 13:12 KIN WOODS MD Oct 21, 2020 13:23
[2020-10-20 13:54] LABS: PROTHROMBIN TIME PATIENT 16.5 SEC (11.7-14.0)
--- NOTE | 2020-10-20 16:37 | NUR ---
SS following up with discharge planning. SS reviewed pt chart and discussed with pt RN. Pt is from home and is currently on the vent at 50%. COVID19 negative. Pt on IV Zosyn. DNR. Prognosis poor. [place] notified. SS will continue to follow for discharge planning.
[2020-10-21] VITALS (11 sets, daily range): BP systolic 92–104; BP diastolic 62–68
[2020-10-21] MEDS: PIPERACILLIN/TAZOBACTAM 3.375 GM in IV NORMAL SALINE 50ML 50 ML IV SCH (06:10)
[2020-10-21] MEDS: PANTOPRAZOLE IV PUSH 40 MG VIAL. IVP SCH (07:55)
[2020-10-21] MEDS: levETIRAcetam 500 MG in IV DEXTROSE 5% 100ML 100 ML IV SCH (07:56)
--- NOTE | 2020-10-21 08:18 | PDOC ---
Infectious Disease Note Subjective Subjective Patient is unresponsive ROS ROS no n/v/d/ Vital Sign Vital Signs Vital Signs Date Time Temp Pulse Resp B/P (MAP) Pulse Ox O2 Delivery O2 Flow Rate FiO2 10/21/20 06:00 90 22 101/68 (79) 100 Ventilator 10/21/20 04:00 98.4 98.4 Physical Exam PHYSICAL EXAM GENERAL: Orally intubated gentleman on a ventilator. VITAL SIGNS: Stable HEENT: Both pupils are round and reacting. No conjunctival lesion. Mouth orally intubated. NECK: Supple, no JVP, no lymphadenopathy. LUNGS: Decreased breath sounds. HEART: S1, S2 regular. No gallop or murmur. ABDOMEN: Soft, nontender, no organomegaly. EXTREMITIES: No edema or cyanosis. SKIN: Unremarkable. NEUROLOGIC: The patient is currently intubated on a ventilator. There is no neurologic response. I believe he has not been on any sedation. Labs Micro Microbiology 10/18/20 Blood Culture - Preliminary, Resulted NO GROWTH AFTER 1 DAY Objective Assessment IMPRESSION: 1. Fever. 2. Leukocytosis. 3. Cardiopulmonary arrest. 4. Encephalopathy. 5. Respiratory failure. 6. Crohn's disease. 7. Alcoholism. 8. Diabetes. 9. Hypertension. 10. Chronic obstructive pulmonary disease. 11. Suspected aspiration pneumonia. Plan Plan of Care Continue supportive care Continue antibiotics Overall prognosis poor JAYNE FAUSTIN MD Oct 21, 2020 08:18
--- NOTE | 2020-10-21 08:24 | PN ---
DATE: 10/21/2020 SUBJECTIVE: The patient continued to be unresponsive off sedation and mechanical ventilation, has no gag reflex. PHYSICAL EXAMINATION: GENERAL: When I examined him, he was pale, not jaundiced or cyanosed. No lymphadenopathy. No thyromegaly. No jugular venous distention. No lower limb edema. VITAL SIGNS: His heart rate was 90, blood pressure was 101/68, temperature was 98.4, respiratory rate 22, and oxygen saturation was 100% on FiO2 of 40%. The rest of clinical exam is stable. HEAD, EYES, EARS, NOSE, AND THROAT: Showed normocephalic, atraumatic. NECK: Supple. HEART: Normal first and second heart sounds. No gallop or murmur. CHEST: Clear to auscultation. No crepitation or rhonchi. ABDOMEN: Distended, soft, nontender. NEUROLOGIC: He is encephalopathic. His intake over the last 24 hours is 2600, output was 2350. LABORATORY DATA: Today's labs have still been pending. Yesterday, his H and H has dropped down to 6.8 and 20.4 and he did receive 1 unit of packed RBCs. ASSESSMENT: 1. Acute respiratory failure, status post cardiac arrest. 2. Cardiac arrest. Initially, the patient was found to be in asystole; apparently he went into ventricular fibrillation and was shocked twice and started on amiodarone. 3. Fever, likely due to pneumonia. He has right lower lobe infiltrate and he also has common bile duct dilatation, for which he was started empirically on Zosyn. 4. Chronic alcoholic hepatitis. 5. Metabolic toxic encephalopathy. 6. Crohn disease. 7. Type 2 diabetes mellitus. 8. Hypertension. The patient is now hypotensive. 9. Hyperlipidemia. 10. Chronic obstructive pulmonary disease. 11. Probably severe anoxic encephalopathy. The patient is now DNR. His EEG is almost isoelectric and has very poor prognosis. His code status was changed to DNR/DNI. ABEL PAULSON MD DR: [email or web address]/kwaku JOB#: [id number] / [id number]
[2020-10-21 08:32] LABS: BASO % 0 % (0-3); EOS # 0.1 x10^3/uL (0.0-0.7); EOS % 1 % (0-3); HEMATOCRIT 22.2 % (39.0-53.0); HEMOGLOBIN 7.6 g/dL (13.0-17.5); LYMPH # 0.6 x10^3/uL (1.0-4.8); LYMPH % 7 % (24-48); MEAN CORPUSCULAR HEMOGLOBIN 35 pg (25-35); MEAN CORPUSCULAR HGB CONC 34 g/dL (31-37); MEAN CORPUSCULAR VOLUME 101 fL (79-100); MONO # 0.3 x10^3/uL (0.0-1.1); MONO % 4 % (0-9); NEUT % 88 % (31-73); PLATELET COUNT 160 x10^3/uL (140-400); RED BLOOD COUNT 2.19 x10^6/uL (4.30-5.70); RED CELL DISTRIBUTION WIDTH 19.5 % (11.5-14.5)
[2020-10-21 08:43] LABS: BASE EXCESS ABG -1 mmol/L (-3-3); HCO3 ABG 22 mmol/L (21-28); PCO2 ABG 30 mmHg (35-46); PO2 ABG 106 mmHg (75-108); SAT O2 ABG 97 % (92-99)
[2020-10-21 08:49] LABS: FIO2 ABG 40
[2020-10-21 09:04] LABS: ALBUMIN 1.4 g/dL (3.4-5.0); ALBUMIN/GLOBULIN RATIO 0.4 (1.0-1.7); CALCIUM 7.8 mg/dL (8.5-10.1); GFR 35.4; POTASSIUM 3.5 mmol/L (3.5-5.1); TOTAL PROTEIN 5.2 g/dL (6.4-8.2)
[2020-10-21 09:22] LABS: % BANDS 3 % (0-9); % EOS 1 % (0-5); % LYMPHS 9 % (24-48); % MONOS 4 % (0-10); % SEGS 83 % (35-66)
[2020-10-21 09:23] LABS: ANISOCYTOSIS SLIGHT; PLT ESTIMATE ADEQUATE (ADEQUATE)
--- NOTE | 2020-10-21 09:27 | PDOC ---
Date of Service: DATE: 10/21/20 TIME: 09:24 Objective: Objective: Reviewed chart. Vital Signs: Vital Signs Date Time Temp Pulse Resp B/P (MAP) Pulse Ox O2 Delivery O2 Flow Rate FiO2 10/21/20 06:00 90 22 101/68 (79) 100 Ventilator 10/21/20 04:00 98.4 98.4 Labs: Laboratory Tests Test 10/21/20 08:00 10/21/20 08:40 White Blood Count 9.0 x10^3/uL Red Blood Count 2.19 x10^6/uL Hemoglobin 7.6 g/dL Hematocrit 22.2 % Mean Corpuscular Volume 101 fL Mean Corpuscular Hemoglobin 35 pg Mean Corpuscular Hemoglobin Concent 34 g/dL Red Cell Distribution Width 19.5 % Platelet Count 160 x10^3/uL Neutrophils (%) (Auto) 88 % Lymphocytes (%) (Auto) 7 % Monocytes (%) (Auto) 4 % Eosinophils (%) (Auto) 1 % Basophils (%) (Auto) 0 % Neutrophils # (Auto) 8.0 x10^3/uL Lymphocytes # (Auto) 0.6 x10^3/uL Monocytes # (Auto) 0.3 x10^3/uL Eosinophils # (Auto) 0.1 x10^3/uL Basophils # (Auto) 0.0 x10^3/uL Segmented Neutrophils % 83 % Band Neutrophils % 3 % Lymphocytes % 9 % Monocytes % 4 % Eosinophils % 1 % Platelet Estimate Adequate Anisocytosis Slight Sodium Level 138 mmol/L Potassium Level 3.5 mmol/L Chloride Level 102 mmol/L Carbon Dioxide Level 24 mmol/L Anion Gap 12 Blood Urea Nitrogen 46 mg/dL Creatinine 2.0 mg/dL Estimated GFR (Cockcroft-Gault) 35.4 BUN/Creatinine Ratio 23 Glucose Level 123 mg/dL Calcium Level 7.8 mg/dL Total Bilirubin 1.0 mg/dL Aspartate Amino Transf (AST/SGOT) 102 U/L Alanine Aminotransferase (ALT/SGPT) 38 U/L Alkaline Phosphatase 155 U/L Total Protein 5.2 g/dL Albumin 1.4 g/dL Albumin/Globulin Ratio 0.4 O2 Saturation 97 % Arterial Blood pH 7.49 Arterial Blood pCO2 at Patient Temp 30 mmHg Arterial Blood pO2 at Patient Temp 106 mmHg Arterial Blood HCO3 22 mmol/L Arterial Blood Base Excess -1 mmol/L FiO2 40 BLOOD CULTURE Preliminary NO GROWTH AFTER 3 DAYS PE: GEN: intubated LUNGS: vent HEART: RRR ABD: non-distended NEURO/PSYCH: unresponsive A/P: S/p arrest, resp failure, anoxic encephalopathy ACD/MAGNO (improved w/ transfusion yesterday - no obvious bleeding), MATT (imp roving), alcoholic hepatitis (AST and Alk Phos up a bit today) Hepatomegaly, hepatic steatosis, GB sludge, CBD 6mm H/o Crohn's COVID negative 10/18/20 -- Poor prognosis, disposition plans per primary. Justicifation of Admission Dx: Justifications for Admission: Justification of Admission Dx: Yes WISAM YANES Oct 21, 2020 09:27
[2020-10-21] MEDS: IV DEXTROSE 5% 1,000 ML IV SCH (09:41)
--- NOTE | 2020-10-21 10:18 | PDOC ---
PROGRESS NOTES Date of Service DATE: 10/21/20 TIME: 10:15 Assessment Anoxic encephalopathy, no sign of seizure activity on EEG 10/19. Has some basic brainstem reflexes Prior metabolic encephalopathy that was improving. Acute kidney injury, hypokalemia and hyponatremia, chronic alcoholic liver disease, Crohn's disease, hypertension, hyperlipidemia, chronic obstructive pulmonary disease, benign prostatic hypertrophy. Plan Levetiracetam Treat medical diseases Left message with patient's mother Subjective None Objective Vital Signs Date Time Temp Pulse Resp B/P (MAP) Pulse Ox O2 Delivery O2 Flow Rate FiO2 10/21/20 10:00 92 22 101/66 (78) 100 Ventilator 10/21/20 08:00 99.3 99.3 Intake and Output 10/21/20 07:00 Intake Total 3330 ml Output Total 960 ml Balance 2370 ml IV Total 2209 ml Blood Product 307 ml Blood Product IV Normal Saline Flush 814 ml Output Urine Total 960 ml PHYSICAL EXAM On ventilator, no response to pain PERRL. Oculocephalic reflex intact CN: no focal findings. Muscle tone: normal. Muscle strength: No response to pain DTR: 0+ Plantar reflex: Silent Gait: not examined in bed. Sensory exam: no abnormal findings. No cerebellar signs elicited. Review of Relevant I have reviewed the following items giovanna (where applicable) has been applied. Labs Laboratory Tests Test 10/20/20 07:50 10/20/20 07:55 10/21/20 08:00 10/21/20 08:40 White Blood Count 10.7 x10^3/uL (4.0-11.0) 9.0 x10^3/uL (4.0-11.0) Red Blood Count 1.94 x10^6/uL (4.30-5.70) 2.19 x10^6/uL (4.30-5.70) Hemoglobin 6.8 g/dL (13.0-17.5) 7.6 g/dL (13.0-17.5) Hematocrit 20.4 % (39.0-53.0) 22.2 % (39.0-53.0) Mean Corpuscular Volume 106 fL (79-100) 101 fL (79-100) Mean Corpuscular Hemoglobin 35 pg (25-35) 35 pg (25-35) Mean Corpuscular Hemoglobin Concent 33 g/dL (31-37) 34 g/dL (31-37) Red Cell Distribution Width 19.7 % (11.5-14.5) 19.5 % (11.5-14.5) Platelet Count 132 x10^3/uL (140-400) 160 x10^3/uL (140-400) Prothrombin Time 16.5 SEC (11.7-14.0) Prothromb Time International Ratio 1.4 (0.8-1.1) Sodium Level 137 mmol/L (136-145) 138 mmol/L (136-145) Potassium Level 4.0 mmol/L (3.5-5.1) 3.5 mmol/L (3.5-5.1) Chloride Level 101 mmol/L (98-107) 102 mmol/L (98-107) Carbon Dioxide Level 23 mmol/L (21-32) 24 mmol/L (21-32) Anion Gap 13 (6-14) 12 (6-14) Blood Urea Nitrogen 56 mg/dL (8-26) 46 mg/dL (8-26) Creatinine 2.5 mg/dL (0.7-1.3) 2.0 mg/dL (0.7-1.3) Estimated GFR (Cockcroft-Gault) 27.4 35.4 BUN/Creatinine Ratio 22 (6-20) 23 (6-20) Glucose Level 123 mg/dL (70-99) 123 mg/dL (70-99) Calcium Level 7.4 mg/dL (8.5-10.1) 7.8 mg/dL (8.5-10.1) Iron Level 16 ug/dL (65-175) Total Iron Binding Capacity 122 ug/dL (250-450) Iron Saturation 13 % (15-34) Total Bilirubin 0.9 mg/dL (0.2-1.0) 1.0 mg/dL (0.2-1.0) Aspartate Amino Transf (AST/SGOT) 85 U/L (15-37) 102 U/L (15-37) Alanine Aminotransferase (ALT/SGPT) 42 U/L (16-63) 38 U/L (16-63) Alkaline Phosphatase 129 U/L (46-116) 155 U/L (46-116) Total Protein 5.3 g/dL (6.4-8.2) 5.2 g/dL (6.4-8.2) Albumin 1.5 g/dL (3.4-5.0) 1.4 g/dL (3.4-5.0) Albumin/Globulin Ratio 0.4 (1.0-1.7) 0.4 (1.0-1.7) Vitamin B12 Level 1276 pg/mL (247-911) O2 Saturation 99 % (92-99) 97 % (92-99) Arterial Blood pH 7.50 (7.35-7.45) 7.49 (7.35-7.45) Arterial Blood pCO2 at Patient Temp 28 mmHg (35-46) 30 mmHg (35-46) Arterial Blood pO2 at Patient Temp 179 mmHg (75-108) 106 mmHg (75-108) Arterial Blood HCO3 22 mmol/L (21-28) 22 mmol/L (21-28) Arterial Blood Base Excess -1 mmol/L (-3-3) -1 mmol/L (-3-3) FiO2 50% vent 40 Neutrophils (%) (Auto) 88 % (31-73) Lymphocytes (%) (Auto) 7 % (24-48) Monocytes (%) (Auto) 4 % (0-9) Eosinophils (%) (Auto) 1 % (0-3) Basophils (%) (Auto) 0 % (0-3) Neutrophils # (Auto) 8.0 x10^3/uL (1.8-7.7) Lymphocytes # (Auto) 0.6 x10^3/uL (1.0-4.8) Monocytes # (Auto) 0.3 x10^3/uL (0.0-1.1) Eosinophils # (Auto) 0.1 x10^3/uL (0.0-0.7) Basophils # (Auto) 0.0 x10^3/uL (0.0-0.2) Segmented Neutrophils % 83 % (35-66) Band Neutrophils % 3 % (0-9) Lymphocytes % 9 % (24-48) Monocytes % 4 % (0-10) Eosinophils % 1 % (0-5) Platelet Estimate Adequate (ADEQUATE) Anisocytosis Slight Laboratory Tests Test 10/21/20 08:00 10/21/20 08:40 White Blood Count 9.0 x10^3/uL (4.0-11.0) Red Blood Count 2.19 x10^6/uL (4.30-5.70) Hemoglobin 7.6 g/dL (13.0-17.5) Hematocrit 22.2 % (39.0-53.0) Mean Corpuscular Volume 101 fL (79-100) Mean Corpuscular Hemoglobin 35 pg (25-35) Mean Corpuscular Hemoglobin Concent 34 g/dL (31-37) Red Cell Distribution Width 19.5 % (11.5-14.5) Platelet Count 160 x10^3/uL (140-400) Neutrophils (%) (Auto) 88 % (31-73) Lymphocytes (%) (Auto) 7 % (24-48) Monocytes (%) (Auto) 4 % (0-9) Eosinophils (%) (Auto) 1 % (0-3) Basophils (%) (Auto) 0 % (0-3) Neutrophils # (Auto) 8.0 x10^3/uL (1.8-7.7) Lymphocytes # (Auto) 0.6 x10^3/uL (1.0-4.8) Monocytes # (Auto) 0.3 x10^3/uL (0.0-1.1) Eosinophils # (Auto) 0.1 x10^3/uL (0.0-0.7) Basophils # (Auto) 0.0 x10^3/uL (0.0-0.2) Segmented Neutrophils % 83 % (35-66) Band Neutrophils % 3 % (0-9) Lymphocytes % 9 % (24-48) Monocytes % 4 % (0-10) Eosinophils % 1 % (0-5) Platelet Estimate Adequate (ADEQUATE) Anisocytosis Slight Sodium Level 138 mmol/L (136-145) Potassium Level 3.5 mmol/L (3.5-5.1) Chloride Level 102 mmol/L (98-107) Carbon Dioxide Level 24 mmol/L (21-32) Anion Gap 12 (6-14) Blood Urea Nitrogen 46 mg/dL (8-26) Creatinine 2.0 mg/dL (0.7-1.3) Estimated GFR (Cockcroft-Gault) 35.4 BUN/Creatinine Ratio 23 (6-20) Glucose Level 123 mg/dL (70-99) Calcium Level 7.8 mg/dL (8.5-10.1) Total Bilirubin 1.0 mg/dL (0.2-1.0) Aspartate Amino Transf (AST/SGOT) 102 U/L (15-37) Alanine Aminotransferase (ALT/SGPT) 38 U/L (16-63) Alkaline Phosphatase 155 U/L (46-116) Total Protein 5.2 g/dL (6.4-8.2) Albumin 1.4 g/dL (3.4-5.0) Albumin/Globulin Ratio 0.4 (1.0-1.7) O2 Saturation 97 % (92-99) Arterial Blood pH 7.49 (7.35-7.45) Arterial Blood pCO2 at Patient Temp 30 mmHg (35-46) Arterial Blood pO2 at Patient Temp 106 mmHg (75-108) Arterial Blood HCO3 22 mmol/L (21-28) Arterial Blood Base Excess -1 mmol/L (-3-3) FiO2 40 Microbiology 10/18/20 Blood Culture - Preliminary, Resulted NO GROWTH AFTER 2 DAYS Medications Current Medications Albuterol Sulfate (Ventolin Neb Soln) 2.5 mg PRN Q4HRS PRN NEB SHORTNESS OF BREATH; Start 10/16/20 at 22:15; Stop 10/19/20 at 11:00; Status DC Budesonide (Pulmicort) 0.5 mg RTBID NEB Last administered on 10/18/20at 06:05; Start 10/17/20 at 08:00; Stop 10/19/20 at 11:00; Status DC Capsaicin (Zostrix) 1 lea PRN QID PRN TP MODERATE PAIN 4-6; Start 10/16/20 at 22:15 Duloxetine HCl (Cymbalta) 90 mg DAILY PO ; Start 10/17/20 at 09:00; Stop 10/17/20 at 09:45; Status DC Albuterol/ Ipratropium (Duoneb) 3 ml RTQID NEB Last administered on 10/18/20at 11:27; Start 10/17/20 at 08:00; Stop 10/19/20 at 13:11; Status DC Lidocaine HCl (Xylocaine 2% Topical 30gm Tube) 1 lea PRN QID PRN TP MUSCLE PAIN; Start 10/16/20 at 22:15 Ondansetron HCl (Zofran) 4 mg PRN Q6HRS PRN IVP NAUSEA/VOMITING 1ST CHOICE; Start 10/16/20 at 22:15 Pantoprazole Sodium (PROTONIX VIAL for IV PUSH) 40 mg DAILYAC IVP Last administered on 10/21/20at 07:55; Start 10/17/20 at 07:30 Potassium Chloride/Sodium Chloride 1,000 ml @ 125 mls/hr Q8H IV Last administered on 10/17/20at 00:43; Start 10/16/20 at 23:00; Stop 10/17/20 at 09:43; Status DC Dextrose 1,000 ml @ 100 mls/hr Q10H IV Last administered on 10/21/20at 09:41; Start 10/17/20 at 09:45 Insulin Human Lispro (HumaLOG) 0-5 UNITS PRN Q6HRS PRN SQ hyperglycemia; Start 10/17/20 at 09:45 Dextrose (Dextrose 50%-Water Syringe) 12.5 gm PRN Q15MIN PRN IV SEE COMMENTS; Start 10/17/20 at 09:45 Piperacillin Sod/ Tazobactam Sod 3.375 gm/Sodium Chloride 50 ml @ 100 mls/hr Q6HRS IV Last administered on 10/21/20at 06:10; Start 10/18/20 at 01:00 Acetaminophen (Tylenol Supp) 650 [address]N Q6HRS PRN CT MILD PAIN / TEMP > 100.3'F Last administered on 10/18/20at 10:00; Start 10/18/20 at 00:15 Acetaminophen (Tylenol) 650 mg PRN Q6HRS PRN PO MILD PAIN / TEMP > 100.3'F Last administered on 10/19/20at 23:32; Start 10/18/20 at 00:15 Fentanyl Citrate 30 ml @ 0 mls/hr CONT PRN IV SEE PROTOCOL; Start 10/18/20 at 16:00 Midazolam HCl 100 ml @ 0 mls/hr CONT PRN IV SEE PROTOCOL; Start 10/18/20 at 16:00 Norepinephrine Bitartrate 8 mg/ Dextrose 258 ml @ 16.002 mls/ hr CONT PRN IV PER PROTOCOL Last administered on 10/19/20at 12:57; Start 10/18/20 at 16:00 Piperacillin Sod/ Tazobactam Sod (Zosyn Per Pharmacy) 1 each PRN DAILY PRN MC SEE COMMENTS; Start 10/18/20 at 16:30 Vancomycin HCl (Vanco Per Pharmacy) 1 each PRN DAILY PRN MC SEE COMMENTS Last administered on 10/18/20at 20:04; Start 10/18/20 at 16:30; Stop 10/19/20 at 09:02; Status DC Thiamine HCl 100 mg/Folic Acid 1 mg/Sodium Chloride 1,001.2 ml @ 990.198 mls/hr 1X ONCE IV Last administered on 10/18/20at 17:55; Start 10/18/20 at 17:00; Stop 10/18/20 at 18:00; Status DC Vancomycin HCl 2 gm/Sodium Chloride 500 ml @ 250 mls/hr Q24H IV Last administered on 10/18/20at 17:57; Start 10/18/20 at 18:00; Stop 10/18/20 at 21:00; Status DC Piperacillin Sod/ Tazobactam Sod 3.375 gm/Sodium Chloride 50 ml @ 100 mls/hr Q6HRS IV ; Start 10/18/20 at 18:00; Status Cancel Amiodarone HCl 450 mg/Dextrose 259 ml @ 33 mls/hr CONT PRN IV SEE I/O RECORD Last administered on 10/19/20at 03:31; Start 10/18/20 at 17:00; Stop 10/19/20 at 03:32; Status DC Etomidate (Amidate) 20 mg STK-MED ONCE IV ; Start 10/18/20 at 17:22; Stop 10/18/20 at 17:22; Status DC Levetiracetam 500 mg/Dextrose 105 ml @ 420 mls/hr Q12HR IV Last administered on 10/21/20at 07:56; Start 10/18/20 at 18:28 Vancomycin HCl 1.25 gm/Sodium Chloride 250 ml @ 167 mls/hr Q24H IV ; Start 10/19/20 at 18:00; Stop 10/19/20 at 08:54; Status DC Vancomycin HCl (Vancomycin Trough Level) 1 each 1X ONCE MC ; Start 10/20/20 at 17:30; Stop 10/19/20 at 09:02; Status DC Epidural Dosage Infused (Pha) (Epidural Syringe) 50 tv STK-MED ONCE EPID ; Start 10/17/20 at 12:00; Stop 10/20/20 at 11:49; Status DC Amiodarone HCl (Cordarone) 300 mg STK-MED ONCE .ROUTE ; Start 10/16/20 at 12:00; Stop 10/20/20 at 11:55; Status DC Epinephrine HCl (EPINEPHrine SYRINGE) 3 mg STK-MED ONCE .ROUTE ; Start 10/16/20 at 12:00; Stop 10/20/20 at 11:55; Status DC Sodium Bicarbonate (Sodium Bicarb Adult 8.4% Syr) 100 meq STK-MED ONCE .ROUTE ; Start 10/16/20 at 12:00; Stop 10/20/20 at 11:55; Status DC Dopamine HCl/ Dextrose (DOPamine 400MG/ 250ML PREMIX) 400 mg STK-MED ONCE IV ; Start 10/16/20 at 12:00; Stop 10/20/20 at 11:55; Status DC Active Scripts Active Reported Vitamin B-1 (Thiamine Hcl) 100 Mg Tablet 200 Mg PO DAILY Folic Acid 0.8 Mg Tablet 20 Mg PO DAILY B-12 (Cyanocobalamin (Vitamin B-12)) 1,000 Mcg Tablet.er 1 Tab PO DAILY 30 Days Capsaicin 60 Gm Cream..g. 60 Gm TP PRN QID PRN Metformin Hcl 500 Mg Tablet 500 Mg PO BIDWMEALS Anecream (Lidocaine) 5 Gm Cream..g. 1 Lea TP PRN QID PRN 30 Days Symbicort 160-4.5 Mcg Inhaler (Budesonide/Formoterol Fumarate) 10.2 Gm Hfa.aer.ad 2 Puff IH BID Potassium Chloride 20 Meq Tablet.er 20 Meq PO DAILY Cymbalta (Duloxetine Hcl) 60 Mg Capsule.dr 90 Mg PO DAILY Gabapentin 600 Mg Tablet 600 Mg PO TID Aspirin 81 Mg Tab.chew 1 Tab PO DAILY Cozaar (Losartan Potassium) 25 Mg Tablet 25 Mg PO DAILY Viagra (Sildenafil Citrate) 50 Mg Tablet 50 Mg PO ONCE PRN Crestor (Rosuvastatin Calcium) 5 Mg Tablet 2.5 Mg PO HS Flomax (Tamsulosin Hcl) 0.4 Mg Cap.er.24h 1 Cap PO DAILY Proair Hfa (Albuterol Sulfate) 8.5 Gm Hfa.aer.ad 2 Puff IH PRN Q4-6HRS PRN 21 Days Spiriva (Tiotropium [place]) 18 Mcg Cap.w.dev 1 Cap IH DAILY Vitals/I & O Vital Sign - Last 24 Hours 10/20/20 10/20/20 10/20/20 10/20/20 11:00 12:00 12:04 13:16 Temp 97.7 97.7 Pulse 93 93 93 Resp B/P (MAP) 95/67 (76) 93/69 (77) 95/70 (78) Pulse Ox 100 100 100 O2 Delivery Ventilator Ventilator Mechanical Ventilator Ventilator 10/20/20 10/20/20 10/20/20 10/20/20 13:20 14:00 15:19 15:47 Temp 97.2 97.2 Pulse 90 90 89 Resp B/P (MAP) 93/65 (74) 93/68 (76) 94/68 Pulse Ox 100 100 100 O2 Delivery Ventilator Ventilator Ventilator 10/20/20 10/20/20 10/20/20 10/20/20 16:14 16:14 16:47 16:54 Temp 97.5 97.5 97.5 97.5 Pulse 90 93 93 Resp B/P (MAP) 95/67 (76) 92/63 92/63 (73) Pulse Ox 100 94 O2 Delivery Mechanical Ventilator Ventilator Ventilator 10/20/20 10/20/20 10/20/20 10/20/20 17:22 18:11 18:12 19:00 Temp 97.0 97.0 Pulse 90 89 95 Resp B/P (MAP) 101/70 (80) 101/70 104/89 (94) Pulse Ox 100 100 100 O2 Delivery Ventilator Ventilator Ventilator 10/20/20 10/20/20 10/20/20 10/20/20 20:00 20:00 21:00 21:01 Temp 97.5 97.5 Pulse 88 93 Resp B/P (MAP) 101/71 (81) 105/71 (82) Pulse Ox 100 100 100 O2 Delivery Mechanical Ventilator Ventilator Ventilator Ventilator 10/20/20 10/20/20 10/20/20 10/20/20 22:00 23:00 23:59 23:59 Temp 97.9 97.9 Pulse 91 90 93 Resp B/P (MAP) 102/69 (80) 97/66 (76) 102/ (81) Pulse Ox 100 100 100 O2 Delivery Ventilator Ventilator Ventilator Mechanical Ventilator 10/21/20 10/21/20 10/21/20 10/21/20 00:30 01:00 02:01 03:00 Pulse 88 90 88 Resp 22 22 22 B/P (MAP) 101/66 (78) 104/68 (80) 92/66 (75) Pulse Ox 100 100 100 100 O2 Delivery Ventilator Ventilator Ventilator Ventilator 10/21/20 10/21/20 10/21/20 10/21/20 04:00 04:00 04:04 05:00 Temp 98.4 98.4 Pulse 90 90 Resp B/P (MAP) 96/68 (77) 101/68 (79) Pulse Ox 100 100 100 O2 Delivery Mechanical Ventilator Ventilator Ventilator Ventilator 10/21/20 10/21/20 10/21/20 10/21/20 06:00 07:00 08:00 08:00 Temp 99.3 99.3 Pulse 90 92 94 Resp 22 B/P (MAP) 101/ (79) 104/66 (79) 98/67 (77) Pulse Ox 100 100 100 O2 Delivery Ventilator Ventilator Mechanical Ventilator Ventilator 10/21/20 10/21/20 09:00 10:00 Pulse 94 92 Resp 22 B/P (MAP) 98/68 (78) 101/66 (78) Pulse Ox 100 100 O2 Delivery Ventilator Ventilator Intake and Output 10/20/20 10/20/20 10/21/20 15:00 23:00 07:00 Intake Total 155 ml 2140 ml 1035 ml Output Total 425 ml 285 ml 250 ml Balance -270 ml 1855 ml 785 ml Justicifation of Admission Dx: Justifications for Admission: Justification of Admission Dx: Yes MATHEW PERRY MD Oct 21, 2020 10:18
--- NOTE | 2020-10-21 10:27 | PDOC ---
PULMONARY PROGRESS NOTES DATE: 10/21/20 TIME: 10:23 Subjective S/P cardiac arrest PEA , unknown down time on 10/18/20 off pressors No cough, no gag, no corneal reflexes, barely breath over the vent this am Vitals Vital Signs Date Time Temp Pulse Resp B/P (MAP) Pulse Ox O2 Delivery O2 Flow Rate FiO2 10/21/20 10:00 92 22 101/66 (78) 100 Ventilator 10/21/20 08:00 99.3 99.3 Comments intubated/sedated Lungs: Clear Cardiovascular: S1, S2 Skin: Warm, Dry Labs Laboratory Tests Test 10/20/20 07:50 10/20/20 07:55 10/21/20 08:00 10/21/20 08:40 White Blood Count 10.7 x10^3/uL (4.0-11.0) 9.0 x10^3/uL (4.0-11.0) Red Blood Count 1.94 x10^6/uL (4.30-5.70) 2.19 x10^6/uL (4.30-5.70) Hemoglobin 6.8 g/dL (13.0-17.5) 7.6 g/dL (13.0-17.5) Hematocrit 20.4 % (39.0-53.0) 22.2 % (39.0-53.0) Mean Corpuscular Volume 106 fL (79-100) 101 fL (79-100) Mean Corpuscular Hemoglobin 35 pg (25-35) 35 pg (25-35) Mean Corpuscular Hemoglobin Concent 33 g/dL (31-37) 34 g/dL (31-37) Red Cell Distribution Width 19.7 % (11.5-14.5) 19.5 % (11.5-14.5) Platelet Count 132 x10^3/uL (140-400) 160 x10^3/uL (140-400) Prothrombin Time 16.5 SEC (11.7-14.0) Prothromb Time International Ratio 1.4 (0.8-1.1) Sodium Level 137 mmol/L (136-145) 138 mmol/L (136-145) Potassium Level 4.0 mmol/L (3.5-5.1) 3.5 mmol/L (3.5-5.1) Chloride Level 101 mmol/L (98-107) 102 mmol/L (98-107) Carbon Dioxide Level 23 mmol/L (21-32) 24 mmol/L (21-32) Anion Gap 13 (6-14) 12 (6-14) Blood Urea Nitrogen 56 mg/dL (8-26) 46 mg/dL (8-26) Creatinine 2.5 mg/dL (0.7-1.3) 2.0 mg/dL (0.7-1.3) Estimated GFR (Cockcroft-Gault) 27.4 35.4 BUN/Creatinine Ratio 22 (6-20) 23 (6-20) Glucose Level 123 mg/dL (70-99) 123 mg/dL (70-99) Calcium Level 7.4 mg/dL (8.5-10.1) 7.8 mg/dL (8.5-10.1) Iron Level 16 ug/dL (65-175) Total Iron Binding Capacity 122 ug/dL (250-450) Iron Saturation 13 % (15-34) Total Bilirubin 0.9 mg/dL (0.2-1.0) 1.0 mg/dL (0.2-1.0) Aspartate Amino Transf (AST/SGOT) 85 U/L (15-37) 102 U/L (15-37) Alanine Aminotransferase (ALT/SGPT) 42 U/L (16-63) 38 U/L (16-63) Alkaline Phosphatase 129 U/L (46-116) 155 U/L (46-116) Total Protein 5.3 g/dL (6.4-8.2) 5.2 g/dL (6.4-8.2) Albumin 1.5 g/dL (3.4-5.0) 1.4 g/dL (3.4-5.0) Albumin/Globulin Ratio 0.4 (1.0-1.7) 0.4 (1.0-1.7) Vitamin B12 Level 1276 pg/mL (247-911) O2 Saturation 99 % (92-99) 97 % (92-99) Arterial Blood pH 7.50 (7.35-7.45) 7.49 (7.35-7.45) Arterial Blood pCO2 at Patient Temp 28 mmHg (35-46) 30 mmHg (35-46) Arterial Blood pO2 at Patient Temp 179 mmHg (75-108) 106 mmHg (75-108) Arterial Blood HCO3 22 mmol/L (21-28) 22 mmol/L (21-28) Arterial Blood Base Excess -1 mmol/L (-3-3) -1 mmol/L (-3-3) FiO2 50% vent 40 Neutrophils (%) (Auto) 88 % (31-73) Lymphocytes (%) (Auto) 7 % (24-48) Monocytes (%) (Auto) 4 % (0-9) Eosinophils (%) (Auto) 1 % (0-3) Basophils (%) (Auto) 0 % (0-3) Neutrophils # (Auto) 8.0 x10^3/uL (1.8-7.7) Lymphocytes # (Auto) 0.6 x10^3/uL (1.0-4.8) Monocytes # (Auto) 0.3 x10^3/uL (0.0-1.1) Eosinophils # (Auto) 0.1 x10^3/uL (0.0-0.7) Basophils # (Auto) 0.0 x10^3/uL (0.0-0.2) Segmented Neutrophils % 83 % (35-66) Band Neutrophils % 3 % (0-9) Lymphocytes % 9 % (24-48) Monocytes % 4 % (0-10) Eosinophils % 1 % (0-5) Platelet Estimate Adequate (ADEQUATE) Anisocytosis Slight Laboratory Tests Test 10/21/20 08:00 10/21/20 08:40 White Blood Count 9.0 x10^3/uL (4.0-11.0) Red Blood Count 2.19 x10^6/uL (4.30-5.70) Hemoglobin 7.6 g/dL (13.0-17.5) Hematocrit 22.2 % (39.0-53.0) Mean Corpuscular Volume 101 fL (79-100) Mean Corpuscular Hemoglobin 35 pg (25-35) Mean Corpuscular Hemoglobin Concent 34 g/dL (31-37) Red Cell Distribution Width 19.5 % (11.5-14.5) Platelet Count 160 x10^3/uL (140-400) Neutrophils (%) (Auto) 88 % (31-73) Lymphocytes (%) (Auto) 7 % (24-48) Monocytes (%) (Auto) 4 % (0-9) Eosinophils (%) (Auto) 1 % (0-3) Basophils (%) (Auto) 0 % (0-3) Neutrophils # (Auto) 8.0 x10^3/uL (1.8-7.7) Lymphocytes # (Auto) 0.6 x10^3/uL (1.0-4.8) Monocytes # (Auto) 0.3 x10^3/uL (0.0-1.1) Eosinophils # (Auto) 0.1 x10^3/uL (0.0-0.7) Basophils # (Auto) 0.0 x10^3/uL (0.0-0.2) Segmented Neutrophils % 83 % (35-66) Band Neutrophils % 3 % (0-9) Lymphocytes % 9 % (24-48) Monocytes % 4 % (0-10) Eosinophils % 1 % (0-5) Platelet Estimate Adequate (ADEQUATE) Anisocytosis Slight Sodium Level 138 mmol/L (136-145) Potassium Level 3.5 mmol/L (3.5-5.1) Chloride Level 102 mmol/L (98-107) Carbon Dioxide Level 24 mmol/L (21-32) Anion Gap 12 (6-14) Blood Urea Nitrogen 46 mg/dL (8-26) Creatinine 2.0 mg/dL (0.7-1.3) Estimated GFR (Cockcroft-Gault) 35.4 BUN/Creatinine Ratio 23 (6-20) Glucose Level 123 mg/dL (70-99) Calcium Level 7.8 mg/dL (8.5-10.1) Total Bilirubin 1.0 mg/dL (0.2-1.0) Aspartate Amino Transf (AST/SGOT) 102 U/L (15-37) Alanine Aminotransferase (ALT/SGPT) 38 U/L (16-63) Alkaline Phosphatase 155 U/L (46-116) Total Protein 5.2 g/dL (6.4-8.2) Albumin 1.4 g/dL (3.4-5.0) Albumin/Globulin Ratio 0.4 (1.0-1.7) O2 Saturation 97 % (92-99) Arterial Blood pH 7.49 (7.35-7.45) Arterial Blood pCO2 at Patient Temp 30 mmHg (35-46) Arterial Blood pO2 at Patient Temp 106 mmHg (75-108) Arterial Blood HCO3 22 mmol/L (21-28) Arterial Blood Base Excess -1 mmol/L (-3-3) FiO2 40 Medications Active Scripts Medications Dose Route/Sig Max Daily Dose Days Date Category Vitamin B-1 (Thiamine Hcl) 100 Mg Tablet 200 Mg PO DAILY 10/17/20 Reported Folic Acid 0.8 Mg Tablet 20 Mg PO DAILY 10/17/20 Reported B-12 (Cyanocobalamin (Vitamin B-12)) 1,000 Mcg Tablet.er 1 Tab PO DAILY 30 10/17/20 Reported Capsaicin 60 Gm Cream..g. 60 Gm TP PRN QID PRN 10/17/20 Reported Metformin Hcl 500 Mg Tablet 500 Mg PO BIDWMEALS 10/17/20 Reported Anecream (Lidocaine) 5 Gm Cream..g. 1 Lea TP PRN QID PRN 30 10/17/20 Reported Symbicort 160-4.5 Mcg Inhaler (Budesonide/Formoterol Fumarate) 10.2 Gm Hfa.aer.ad 2 Puff IH BID 10/17/20 Reported Potassium Chloride 20 Meq Tablet.er 20 Meq PO DAILY 10/17/20 Reported Cymbalta (Duloxetine Hcl) 60 Mg Capsule.dr 90 Mg PO DAILY 10/17/20 Reported Gabapentin 600 Mg Tablet 600 Mg PO TID 10/17/20 Reported Aspirin 81 Mg Tab.chew 1 Tab PO DAILY 10/17/20 Reported Cozaar (Losartan Potassium) 25 Mg Tablet 25 Mg PO DAILY 10/17/20 Reported Viagra (Sildenafil Citrate) 50 Mg Tablet 50 Mg PO ONCE PRN 10/17/20 Reported Crestor (Rosuvastatin Calcium) 5 Mg Tablet 2.5 Mg PO HS 10/17/20 Reported Flomax (Tamsulosin Hcl) 0.4 Mg Cap.er.24h 1 Cap PO DAILY 10/17/20 Reported Proair Hfa (Albuterol Sulfate) 8.5 Gm Hfa.aer.ad 2 Puff IH PRN Q4-6HRS PRN 21 10/17/20 Reported Spiriva (Tiotropium [place]) 18 Mcg Cap.w.dev 1 Cap IH DAILY 10/17/20 Reported Comments EEG 10/19/20 IMPRESSION This electroencephalogram with the patient in an obtunded state is abnormal because of a severe disturbance of cerebral activity consistent with any of a variety of toxic or metabolic encephalopathies including post-anoxic. The study is nearly isoelectric, but there is some activity. Prognosis is very poor. Impression . IMPRESSION: 1. Acute respiratory failure secondary to cardiac arrest, 2. Cardiac arrest. Initially, the patient found to be in asystole, then went into ventricular fibrillation, shocked x 2, started on amiodarone. 3. Fever, suspect sepsis. 4. Rule out COVID-19. 5. Chronic alcoholic hepatitis. 6. Metabolic toxic encephalopathy. 7. Alcoholic hepatitis. 8. Crohn's disease. 9. Type 2 diabetes. 10. Hypertension. 11. Hyperlipidemia. 12. Chronic obstructive pulmonary disease. 13. Abnormal x-ray. 14. Possible aspiration pneumonia. 15. anoxic brain injury Plan . PLAN: Continue current vent support 40%/ PEEP 5 Follow CXR/ABG-- as needed Prognosis extremely grim Follow ID recs for ABX on Zosyn Follow Cultures-- NGTD Vasopressors if needed to Keep MAP above 65 --- currently off levophed Follow neurology recs-- EEG see report Follow cardiology recs Follow GI recs--- cont. PPI Monitor renal function, worsening DVT/GI PPX -- SCDS-- No A/C anemia D/W RN and RT PT. is DNR Prognosis grim for survival. Has brain anoxia, not brain , barely breathe over vent d/w mother .Prognosis explained. no chance of survival. She agrees to withdraw care and proceed with comfort care Critical Care Time 0815-0845AM MARGO RUSS MD Oct 21, 2020 10:27
--- NOTE | 2020-10-21 10:36 | NUR ---
SS following up with discharge planning. SS reviewed pt chart and discussed with pt RN. Pt is from home and is currently on the vent at 50%. COVID19 negative. Pt on IV Zosyn. DNR. Prognosis poor. [facility] notified. SS will continue to follow for discharge planning.
--- NOTE | 2020-10-21 10:57 | PDOC ---
CARDIO Progress Notes Date and Time Date of Service 10/21/2020 Time of Evaluation 0940 Subjective Subjective: Other (sedated) Vitals Vitals Vital Signs Date Time Temp Pulse Resp B/P (MAP) Pulse Ox O2 Delivery O2 Flow Rate FiO2 10/21/20 10:00 92 22 101/66 (78) 100 Ventilator 10/21/20 08:00 99.3 99.3 Weight Weight [ ] Input and Output Intake and Output Intake and Output 10/21/20 07:00 Intake Total 3330 ml Output Total 960 ml Balance 2370 ml IV Total 2209 ml Blood Product 307 ml Blood Product IV Normal Saline Flush 814 ml Output Urine Total 960 ml Laboratory Labs Laboratory Tests Test 10/21/20 08:00 10/21/20 08:40 White Blood Count 9.0 x10^3/uL (4.0-11.0) Red Blood Count 2.19 x10^6/uL (4.30-5.70) Hemoglobin 7.6 g/dL (13.0-17.5) Hematocrit 22.2 % (39.0-53.0) Mean Corpuscular Volume 101 fL (79-100) Mean Corpuscular Hemoglobin 35 pg (25-35) Mean Corpuscular Hemoglobin Concent 34 g/dL (31-37) Red Cell Distribution Width 19.5 % (11.5-14.5) Platelet Count 160 x10^3/uL (140-400) Neutrophils (%) (Auto) 88 % (31-73) Lymphocytes (%) (Auto) 7 % (24-48) Monocytes (%) (Auto) 4 % (0-9) Eosinophils (%) (Auto) 1 % (0-3) Basophils (%) (Auto) 0 % (0-3) Neutrophils # (Auto) 8.0 x10^3/uL (1.8-7.7) Lymphocytes # (Auto) 0.6 x10^3/uL (1.0-4.8) Monocytes # (Auto) 0.3 x10^3/uL (0.0-1.1) Eosinophils # (Auto) 0.1 x10^3/uL (0.0-0.7) Basophils # (Auto) 0.0 x10^3/uL (0.0-0.2) Segmented Neutrophils % 83 % (35-66) Band Neutrophils % 3 % (0-9) Lymphocytes % 9 % (24-48) Monocytes % 4 % (0-10) Eosinophils % 1 % (0-5) Platelet Estimate Adequate (ADEQUATE) Anisocytosis Slight Sodium Level 138 mmol/L (136-145) Potassium Level 3.5 mmol/L (3.5-5.1) Chloride Level 102 mmol/L (98-107) Carbon Dioxide Level 24 mmol/L (21-32) Anion Gap 12 (6-14) Blood Urea Nitrogen 46 mg/dL (8-26) Creatinine 2.0 mg/dL (0.7-1.3) Estimated GFR (Cockcroft-Gault) 35.4 BUN/Creatinine Ratio 23 (6-20) Glucose Level 123 mg/dL (70-99) Calcium Level 7.8 mg/dL (8.5-10.1) Total Bilirubin 1.0 mg/dL (0.2-1.0) Aspartate Amino Transf (AST/SGOT) 102 U/L (15-37) Alanine Aminotransferase (ALT/SGPT) 38 U/L (16-63) Alkaline Phosphatase 155 U/L (46-116) Total Protein 5.2 g/dL (6.4-8.2) Albumin 1.4 g/dL (3.4-5.0) Albumin/Globulin Ratio 0.4 (1.0-1.7) O2 Saturation 97 % (92-99) Arterial Blood pH 7.49 (7.35-7.45) Arterial Blood pCO2 at Patient Temp 30 mmHg (35-46) Arterial Blood pO2 at Patient Temp 106 mmHg (75-108) Arterial Blood HCO3 22 mmol/L (21-28) Arterial Blood Base Excess -1 mmol/L (-3-3) FiO2 40 Microbiology Micro Microbiology 10/18/20 Blood Culture - Preliminary, Resulted NO GROWTH AFTER 2 DAYS Physical Exam HEENT: Neck Supple W Full Motion Chest: Symmetric LUNGS: Other (intubated/vent) Heart: RRR (SR) Abdomen: Other (ascites) Extremities: Other (anasarca) Neurology: other (sedated) Assessment Assessment 1. S/p cardiac arrest; initially asystole, then ventricular fibrillation. Defibrillated x2 prior to ROSC. Amiodarone initiated. Maintaing SR with PVCs 2. Acute respiratory failure in setting of above; s/p intubation, mechanical ventilation 3. Leukocytosis, fevers, probable sepsis. requiring pressor support 4. Metabolic/anoxic encephalopathy 5. Anemia, coffee ground emesis 6. ? Aspiration PNA 7. MATT, hyperkalemia 8. H/o Crohn' s Disease 9. Chronic alcoholic hepatitis 10. H/o hypertension: controlled 11. Hyperlipidemia 12. PUI; rapid negative. PCR pending 13. Anemia/mild coagulopathy: Hgb 6.8, post transfusion Recommendations 1. Very poor prognosis, now DNR. Absent reflexes off sedation unresponsive. Palliative meeting pending 2. Transfusion ongoing. 3. Supportive care. Pressor as warranted. Not a candidate for amiodarone due to significant liver disease Justicifation of Admission Dx: Justifications for Admission: Justification of Admission Dx: Yes BETY NIETO SPEECH AND LANGUAGE ASSISTANT Oct 21, 2020 10:57
--- NOTE | 2020-10-21 13:33 | NUR ---
Dr. Bowie talked with patient mother,patient at 1138, extubated at 1120, went very peaceful, patient mother called Raegan with time of , very grateful for the care of her son. will call later with home. belonging to be picked up by Nevin Shi. to [facility]on at 1230
--- NOTE | 2020-10-26 09:31 | DS ---
DATE OF DISCHARGE: 10/21/2020 DISCHARGE SUMMARY HOSPITAL COURSE: The patient was a 50-year-old male patient who was originally admitted to [facility] with altered mental status as well as acute kidney injury, lactic acidosis together with functional paraplegia due to severe diabetic and alcohol-induced peripheral neuropathy. His kidney function had actually improved; however, he dropped his H and H down to 6.9 and 20 and did receive 1 unit of packed RBCs and started complaining of abdominal pain and also vomited multiple times what seemed to be coffee-ground material, so we started him on IV Protonix, IV fluid and kept him n.p.o. and his repeat labs showed that his hemoglobin was 9.1, hematocrit 27.3. However, his liver enzymes continued to be slightly elevated, although the ammonia was normal and a CT scan of the abdomen and pelvis without contrast, which showed that the patient has dilated fluid-filled ascending colon as well as with adjacent fat stranding, which was nonspecific and may relate to colitis. He had also gallbladder distended with small amount of adjacent stranding and the patient therefore was transferred to [facility] to consult the surgical team as well as the teamsite developer. He was seen in consultation actually by Dr. Chan and we did actually order abdominal ultrasound as the CT scan showed dilated common bile duct. Unfortunately, the patient developed what seemed to be pulseless electrical activity cardiac arrest from which he was successfully resuscitated, intubated and was transferred to the ICU. In fact, he initially was in pulseless electrical activity and also went into ventricular fibrillation. He was shocked twice and with return of spontaneous circulation and was back in sinus rhythm. In the ICU, he remained unstable and required vasopressors and was seen in consultation by Dr. Reich and had an EEG, which basically showed that he continued to have some basic brainstem reflexes. We had had multiple discussions with his mother who lives at [place]. The patient basically continued to be in [place] coma scale of 3. He had no cough, no gag reflex, no corneal reflexes and apparently his mother had decided to withdraw care. The patient was terminally extubated and the patient basically was pronounced at 11:38 on 10/21/2020. CAUSES OF : 1. Cardiopulmonary arrest. 2. Acute hypoxic respiratory failure. 3. Severe anoxic encephalopathy. 4. Sepsis. 5. Chronic alcoholic hepatitis. ABEL PAULSON MD DR: ZULMA/kwaku JOB#: [id number] / [id number]
== END 2020-10-21 11:38 | DRG 871 ==
LOC: 5 NORTH 21:51 → 1 WEST ICU 10-18 15:53
PROVIDERS: ADMIT Internal Medicine; ATTEND Internal Medicine
PROC: 5A1945Z Respiratory Ventilation, 24-96 Consecutive Hours (ICD-10-PCS; principal; 2020-10-18)
PROC: 0BH17EZ Insertion of Endotracheal Airway into Trachea, Via Natural or Artificial Opening (ICD-10-PCS; 2020-10-18)
PROC: 30233N1 Transfusion of Nonautologous Red Blood Cells into Peripheral Vein, Percutaneous Approach (ICD-10-PCS; 2020-10-20)
DX: A41.9 Sepsis, unspecified organism (principal); J69.0 Pneumonitis due to inhalation of food and vomit; G92 Toxic encephalopathy; J96.00 Acute respiratory failure, unspecified whether with hypoxia or hypercapnia; D68.9 Coagulation defect, unspecified; E87.0 Hyperosmolality and hypernatremia; E87.1 Hypo-osmolality and hyponatremia; G93.1 Anoxic brain damage, not elsewhere classified; K50.90 Crohn's disease, unspecified, without complications; N17.9 Acute kidney failure, unspecified; R57.9 Shock, unspecified; I46.9 Cardiac arrest, cause unspecified; I49.01 Ventricular fibrillation; D53.9 Nutritional anemia, unspecified; E11.42 Type 2 diabetes mellitus with diabetic polyneuropathy; E11.65 Type 2 diabetes mellitus with hyperglycemia; E78.5 Hyperlipidemia, unspecified; E86.0 Dehydration; E87.5 Hyperkalemia; E87.6 Hypokalemia; F17.200 Nicotine dependence, unspecified, uncomplicated; F44.4 Conversion disorder with motor symptom or deficit; I10 Essential (primary) hypertension; I48.91 Unspecified atrial fibrillation; I49.3 Ventricular premature depolarization; J44.9 Chronic obstructive pulmonary disease, unspecified; K70.10 Alcoholic hepatitis without ascites; K76.0 Fatty (change of) liver, not elsewhere classified; N40.0 Benign prostatic hyperplasia without lower urinary tract symptoms; Z66 Do not resuscitate; F32.9 Major depressive disorder, single episode, unspecified; Z88.8 Allergy status to other drugs, medicaments and biological substances; F10.20 Alcohol dependence, uncomplicated; Y90.9 Presence of alcohol in blood, level not specified; Z20.822 Contact with and (suspected) exposure to COVID-19
CPT/HCPCS: 36415; 36600; 70450; 71045; 76705; 80048; 80053; 80061; 81001; 82140; 82607; 82805; 82962; 83540; 83550; 83735; 84484; 85007; 85014; 85018; 85025; 85027; 85610; 85730; 86850; 86900; 86901; 86920; 87040; 87426; 94002; 94003; 94640; 94760; 95816; C9113; J0171; J0282; J1265; J1815; J1953; J2543; J3010; J3370; J3411; J3480; J3490; J7030; J7040; J7060; P9016; U0003; G0378; J7626